=== PATIENT | male | born 1935 | race Caucasian/White ===

== ENCOUNTER 2022-05-17 21:01 | Observation (INO) | payer MEDICARE, SELFPAY ==
--- NOTE | ~2022-05-17 | XR_ITS ---
EXAMINATION: XR chest 1V portable DATE: 05/18/2022 04:38 INDICATION: Altered mental status. Head injury. TECHNIQUE: A single frontal view of the chest was obtained. COMPARISON: Chest 2 views 03/24/2013, CT abdomen and pelvis 04/22/2016 FINDINGS: The lungs are hyperexpanded with lucencies, consistent with emphysema. Calcified pulmonary nodules and calcified hilar lymph nodes are consistent with old granulomatous disease. No pleural eff usion or pneumothorax. The heart size is normal. IMPRESSION: 1. Emphysema. Reviewed, dictated and finalized at location A. GER WOUND IMPRESSION: 1. Emphysema.
--- NOTE | ~2022-05-17 | CT_ITS ---
EXAMINATION: CT brain wo con INDICATION: Head injury COMPARISON: None TECHNIQUE: Standard unenhanced head CT. The dose-length product (DLP) was 832.33 mGy-cm. The mA was a djusted according to patient size. Iterative reconstruction technique was employed. FINDINGS: There is no acute intraparenchymal hemorrhage. No evidence of mass lesion. No evidence of a cute infarction. There is moderate periventricular and subcortical hypodensity probably related to sm all vessel ischemic disease. There is moderate prominence of the sulci and ventricles related to cere bral atrophy. Intracranial calcified cerebral atherosclerosis is noted. There are no extra-axial jazmin ections. There is a small right frontal scalp hematoma. There is no mass effect or midline shift. Katharina nges in the globes are likely from ocular lens surgery. There is mild mucosal thickening of the paran carla sinuses. IMPRESSION: 1. No acute intracranial abnormality. 2. Age related findings. Reviewed, dictated and finalized at location A. IATRIC PHYSIOTHERAPIST
--- NOTE | ~2022-05-17 | US_ITS ---
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 COMPARISON: CT dated 04/22/2016 FINDINGS: The right kidney measures 8.1 x 4.9 x 4.8 cm. The left kidney measures 8.5 x 3.6 x 3.8 cm. The kidney s demonstrate normal echogenicity. 3 mm echogenic and shadowing nonobstructing stone at the lower lilia e of the left kidney. There is no hydronephrosis in either kidney. The bladder is normal. IMPRESSION: 1. 3 mm nonobstructing left renal stone. Otherwise normal kidneys with no hydronephrosis. Reviewed, dictated and finalized at location A. GE GROWER IMPRESSION: 1. 3 mm nonobstructing left renal stone. Otherwise normal kidneys with no hydr onephrosis.
[2022-05-18] VITALS (24 sets, daily range): BP systolic 116–162; BP diastolic 61–86; PULSE 62–100; RESP 12–30; TEMP 36.4–36.9; O2SAT 97–100
--- NOTE | 2022-05-18 04:12 | ED.GENADULT ---
HPI - General Adult General Chief complaint: Unspecified Stated complaint: aggression Time Seen by Provider: 05/18/22 03:41 Source: patient and family Mode of arrival: ambulatory Limitations: dementia History of Present Illness HPI narrative: Patient is an 86-year-old male with a history of nephrolithiasis, inguinal hernia repair, presenting to the emergency department for evaluation of agitation. Patient has memory problems and impairment per daughter that have been longstanding. Daughter provides most of the history here as patient is only alert and oriented to person, not to place or time. Patient's daughter states that he and his have been living independently, poor living conditions, and he has had declining memory over the past few months with increased agitation over the past 2 days. Patient has not seen a physician in many years. At the time of my assessment, patient is agitated, shouting at staff in the hallway. He is not easily directable. He states that he is going to blow me in the brains with a bullet. Patient's daughter states that he has never been formally diagnosed with Alzheimer's dementia or any type of specific dementia because he has not seen a physician. Is a previous smoker. She does not think he has been using alcohol or any drugs. The patient is actually in the ER tonight because his had a ground-level fall and was on the ground at home for a prolonged period of time so the daughter wanted the patient's evaluated tonight as well. Related Data Allergies Allergy/AdvReac Type Severity Reaction Status Date / Time No Known Allergies Allergy Verified 05/17/22 21:01 Review of Systems Review of Systems: ROS unobtainable: Yes unobtainable due to medical condition and unobtainable due to mental status PMFSH Past Medical History Medical History (Updated 05/18/22 @ 06:08 by Ana Breen MD) Nephrolithiasis Surgical History Surgical History (Updated 05/18/22 @ 04:16 by Ana Breen MD) H/O inguinal hernia repair Social History Social History (Updated 05/18/22 @ 04:16 by Ana Breen MD) Smoking status: Former smoker Alcohol intake: unknown Substance use: unknown Living arrangements: with family Gender identity (if verbalized by the patient): Male Exam Narrative: GENERAL: Awake, alert, agitated, standing chatting in the hallway HEAD: Normocephalic, atraumatic. EYES: PERRLA and EOMI. ENT: Nares clear, no rhinorrhea or epistaxis. Mucous membranes moist. NECK: Supple. CHEST: No respiratory distress, breathing even and non labored HEART: Regular rate, sinus rhythm ABDOMEN:Non distended, non tender EXTREMITIES: Normal range of motion. No edema. SKIN: Warm, dry, no rash. NEURO:No focal deficits. Alert and oriented x1, ambulatory with narrow based, steady gait Course Vital Signs Vital signs: Vital Signs Temperature 36.4 C L 05/18/22 04:36 Pulse Rate 87 05/18/22 04:36 Respiratory Rate 16 05/18/22 04:36 Blood Pressure 142/85 H 05/18/22 04:36 Pulse Oximetry 98 05/18/22 04:36 Temperature 36.4 C L 05/18/22 04:36 Pulse Rate 80 05/18/22 04:57 Respiratory Rate 16 05/18/22 04:36 Blood Pressure 142/85 H 05/18/22 04:36 Pulse Oximetry 98 05/18/22 04:36 Medical Decision Making MDM Narrative Medical decision making narrative: Patient presenting with daughter for increased agitation at home. Patient has not seen a primary care physician in many years. Patient required IV sedation in order to be compliant with care here tonight. He is only oriented to person, not to place or time, thus to not have the capacity to refuse medical care. Patient's daughter is POA at this point. IV access obtained and labs are drawn. Laboratory results are notable for mild elevation in creatinine but may be chronic in nature. No electrolyte derangement. Mild anemia. Urinalysis is consistent with urinary tract infection for which IV antibio
[2022-05-18] MEDS: diphenhydrAMINE HCl INJ 50 MG/ML VIAL IM (04:30)
[2022-05-18] MEDS: HALOPERIDOL LACTATE 5 MG/ML VIAL IM (04:30)
[2022-05-18] MEDS: LORazepam INJ (*CRX) 2 MG/ML VIAL IM (04:30)
[2022-05-18 05:08] LABS: Basophils Percent Auto 0.1 % (0.2-1.2); Eosinophils Absolute Auto 0.1 K/mm3 (0-0.3); Eosinophils Percent Auto 1.8 % (0-4.4); Hematocrit 37.6 % (42.0-52.0); Hemoglobin 12.4 g/dL (14.0-18.0); Immature Granulocyte Absolute 0.04 K/mm3 (0.00-0.031); Immature Granulocyte Percent A 0.6 % (0-0.5); Lymphocytes Absolute Auto 1.53 K/mm3 (0.9-3.2); Lymphocytes Percent Auto 21.2 % (18.3-44.2); Mean Platelet Volume 9.6 fl (7.4-10.4); Monocytes Absolute Auto 0.6 K/mm3 (0.1-0.6); Monocytes Percent Auto 7.6 % (2.6-8.5); Neutrophils Percent Auto 68.7 % (45.5-73.1); Platelet Count Result 152 k/mm3 (150-375); Red Blood Count 3.65 M/mm3 (4.6-6.20); Red Cell Distribution Width 13.1 % (11.5-14.5); White Blood Count 7.2 K/mm3 (4.5-10.0)
[2022-05-18 05:14] LABS: Acetaminophen < 10 ug/mL (10-30); Ethanol < 10 mg/dL (<10); Salicylate < 1.0 mg/dL (2-20)
[2022-05-18 05:15] LABS: Alanine Aminotransferase 12 U/L (6-50); Albumin Level 3.7 g/dL (3.5-5.1); Alkaline Phosphatase 97 U/L (38-126); Anion Gap 6 mmol/L (8-16); Aspartate Amino Transferase 26 U/L (17-59); Bilirubin,Total 1.2 mg/dL (0.2-1.3); Blood Urea Nitrogen 18 mg/dL (9-20); Calcium 8.4 mg/dL (8.4-10.2); Carbon Dioxide 26 mmol/L (22-30); Chloride 107 mmol/L (98-107); Estimated Glomerular Filt Rate 48; Glucose 104 mg/dL (65-110); Potassium 4.2 mmol/L (3.4-5.0); Sodium 139 mmol/L (137-145)
[2022-05-18 05:25] LABS: Add Urine Microscopic? YES; Appearance Urine Clear (Clear); Bilirubin Urine Negative (Negative); Blood Urine 3+ (Negative); Color Urine Light Yellow (Yellow); Glucose Urine UA Negative (Negative); Ketones Urine Trace mg/dL (Negative); Leukocyte Esterase Ur 2+ LEU/UL (Negative); Nitrate Urine Positive (Negative); Protein Urine Trace mg/dL (Negative); pH Urine 6.5 (5.0-9.0)
[2022-05-18 05:39] LABS: Influenza A QL RT-PCR Negative (Negative); Influenza B QL RT-PCR Negative (Negative); SARS-CoV-2 RNA PCR Negative
[2022-05-18 05:40] LABS: Amphetamine Screen Urine Negative (Negative); Barbiturate Screen Urine Negative (Negative); Benzodiazepines Screen Urine Negative (Negative); Cannabinoid Screen Urine Negative (Negative); Cocaine Screen Urine Negative (Negative); Methadone Screen Urine Negative (Negative); Opiate Screen Urine Negative (Negative); Phencyclidine Screen Urine Negative (Negative)
[2022-05-18 06:00] LABS: Bacteria Urine 2+ /hpf; Mucus Urine Rare /lpf; RBC Urine >75 /hpf (0-2); WBC Urine >75 /hpf
--- NOTE | 2022-05-18 07:23 | PC.NURSE ---
Report given to STEFFANY Culver at this time.
--- NOTE | 2022-05-18 07:27 | PC.NURSE ---
assumed care of pt. at this time. report from STEFFANY oneill
--- NOTE | 2022-05-18 08:30 | PC.NURSE ---
reg diet food tray ordered
[2022-05-18 09:36] LABS: Ethanol < 10 mg/dL (<10)
--- NOTE | 2022-05-18 10:19 | PM.IMHP ---
H&P: HPI History of Present Illness Date/Time: 05/18/22 17:19 Chief Complaint: Altered Mental Status Narrative: 86M with a past medical history of nephrolithiasis, inguinal hernia repair who presented to the emergency department after being picked up by EMS for agitation. History obtained by chart review and from speaking with the nurses. Patient lives at home with his and per report the housing situation is concerning. Per nursing, called daughter to help her after she fell. Daughter arrived in the home and found the (patient) standing over the mother yelling he was going to kill her. The police were called to de-escalate the situation and EMS was called. The and (Mr. Lozano) were brought in to the emergency department. In the emergency department, patient was agitated and had to be given haloperidol and lorazepam. UA with nitrites, blood, leukocyte esterase. UDS negative. CT head with no acute intracranial processes. Ceftriaxone given. Review of Systems Review of Systems: ROS unobtainable: Yes unobtainable due to mental status PMFSH Past Medical History Medical History Nephrolithiasis Surgical History Surgical History H/O inguinal hernia repair Social History Social History Smoking status: Former smoker Alcohol intake: never Substance use: never Living arrangements: with family Gender identity (if verbalized by the patient): Male Spiritual care concerns: No Meds Home Medications and Allergies Home Medications Medication Instructions Recorded Confirmed Type No Home Medications 05/18/22 05/18/22 History Allergies Allergy/AdvReac Type Severity Reaction Status Date / Time No Known Allergies Allergy Verified 05/18/22 16:48 Vital Signs Vital Signs - 24 hr 05/18/22 04:36 05/18/22 04:57 05/18/22 06:24 Temperature 36.4 C L Pulse Rate 87 80 72 Respiratory Rate 16 15 Blood Pressure 142/85 H Pulse Oximetry 98 100 05/18/22 06:30 05/18/22 06:45 05/18/22 07:00 Temperature Pulse Rate 69 70 72 Respiratory Rate 15 18 21 H Blood Pressure Pulse Oximetry 100 100 05/18/22 07:19 05/18/22 07:51 05/18/22 08:11 Temperature Pulse Rate 71 71 76 Respiratory Rate 17 20 30 H Blood Pressure Pulse Oximetry 05/18/22 08:15 05/18/22 08:30 05/18/22 08:45 Temperature Pulse Rate 78 72 80 Respiratory Rate 20 21 H 16 Blood Pressure Pulse Oximetry 05/18/22 09:02 05/18/22 09:15 05/18/22 09:36 Temperature Pulse Rate 80 70 Respiratory Rate 30 H 17 30 H Blood Pressure Pulse Oximetry 05/18/22 08:00 05/18/22 10:00 05/18/22 11:05 Temperature Pulse Rate 65 63 72 Respiratory Rate 12 14 14 Blood Pressure 162/86 H 129/68 149/80 H Pulse Oximetry 97 100 100 05/18/22 12:01 05/18/22 12:15 05/18/22 14:03 Temperature Pulse Rate 72 88 Respiratory Rate 17 19 Blood Pressure 124/63 116/71 Pulse Oximetry 100 100 05/18/22 16:04 Temperature 36.7 C Pulse Rate 100 Respiratory Rate 17 Blood Pressure 130/74 Pulse Oximetry 99 Exam Narrative: GENERAL: NAD, cooperative HEENT: Normocephalic, atraumatic, anicteric, nares clear, oropharynx moist and clear, pinpoint pupils NECK: Supple, no thyromegaly, no lymphadenopathy CV: Normal S1, S2, RRR, No MRG RESP: CTAB, Normal work of breathing. Abdomen: Soft, non-tender, non-distended, +BS EXTREMITIES: Warm and well perfused, no clubbing, cyanosis, or edema. +2 Distal pulses bilaterally. SKIN: warm, dry and intact. NEURO: Confused H&P: Results Labs Labs: Short CBC 05/18/22 Range/Units 04:51 WBC 7.2 (4.5-10.0) K/mm3 Hgb 12.4 L (14.0-18.0) g/dL Hct 37.6 L (42.0-52.0) % Plt Count 152 (150-375) k/mm3 [facility] 05/18/22 04:52 Sodium 139 Potassium 4.2 Chloride
[2022-05-18] MEDS: ENOXAPARIN 30 MG/0.3 ML SYRINGE SUB-Q (10:39)
--- NOTE | 2022-05-18 11:01 | PC.NURSE ---
pt. daughter Evelyn Beatrice [phone]
--- NOTE | 2022-05-18 11:30 | PC.NURSE ---
reg diet lunch tray ordered
[2022-05-18] MEDS: HALOPERIDOL LACTATE 5 MG/ML VIAL 2.5 MG IV PUSH (12:11)
[2022-05-18 12:33] LABS: Alveolar/Arterial O2 Gradient 19.3 mmHg; Base Excess ABG 0.5 mEq/l (+/-2.0); Fractional Inspired Oxygen 21 %; HCO3 ABG 23.5 mEq/l (22.0-26.0); Oxygen Content ABG 18.2 %vol (16.0-22.0); Oxygen Saturation ABG 97.5 % (95.0-100.0); Oxyhemoglobin 95.5 % THb (90.0-100.0); PCO2 ABG 32.9 mmHg (35.0-45.0); PO2 FiO2 Ratio Arterial Blood 4.33 %; Total Hemoglobin 13.5 g/dL (12.0-18.0); pH ABG 7.471 (7.350-7.450)
[2022-05-18 12:34] LABS: Device ROOM AIR; Modified Allen's Test Pass; Site Drawn RIGHT RADIAL
--- NOTE | 2022-05-18 16:20 | PC.NURSE ---
updated pt. daughter on pt. status
[2022-05-19 00:10] LABS: Creatinine Urine 73.2 mg/dL
[2022-05-19 00:11] LABS: Sodium Urine Random 223 meq/L
[2022-05-19 02:00] VITALS: BP 148/70; PULSE 78; RESP 16; TEMP 36.2; O2SAT 94
[2022-05-19 05:16] LABS: Basophils Percent Auto 0.3 % (0.2-1.2); Eosinophils Absolute Auto 0.2 K/mm3 (0-0.3); Eosinophils Percent Auto 3.5 % (0-4.4); Hematocrit 39.1 % (42.0-52.0); Hemoglobin 12.6 g/dL (14.0-18.0); Immature Granulocyte Absolute 0.03 K/mm3 (0.00-0.031); Immature Granulocyte Percent A 0.5 % (0-0.5); Mean Corpuscular HGB Conc 32.2 g/dl (32-36); Mean Corpuscular Hemoglobin 32.7 pg (26-34); Mean Corpuscular Volume 101.6 fl (80-100); Mean Platelet Volume 9.6 fl (7.4-10.4); Monocytes Absolute Auto 0.5 K/mm3 (0.1-0.6); Monocytes Percent Auto 8.1 % (2.6-8.5); Neutrophils Absolute Auto 4.6 K/mm3 (1.3-6.7); Neutrophils Percent Auto 69.6 % (45.5-73.1); Platelet Count Result 141 k/mm3 (150-375); Red Blood Count 3.85 M/mm3 (4.6-6.20); Red Cell Distribution Width 12.9 % (11.5-14.5); White Blood Count 6.7 K/mm3 (4.5-10.0)
[2022-05-19 05:17] LABS: Immature Reticulocyte Fraction 8.8 % (3.0-15.9); Reticulocyte Hemoglobin Conten 35.7 pg (28.2-35.7); Reticulocyte Percent 1.06 % (0.7-4.3); Reticulocytes Absolute 0.04 B/L (32.2-175.7)
[2022-05-19 05:28] VITALS: BP 130/59; PULSE 74; RESP 20; TEMP 36.7; O2SAT 99
[2022-05-19 05:29] LABS: Anion Gap 3 mmol/L (8-16); Blood Urea Nitrogen 18 mg/dL (9-20); Calcium 8.7 mg/dL (8.4-10.2); Carbon Dioxide 29 mmol/L (22-30); Chloride 105 mmol/L (98-107); Estimated CRCL calculation 27 ml/min; Estimated Glomerular Filt Rate 52; Glucose 79 mg/dL (65-110); Potassium 4.7 mmol/L (3.4-5.0); Sodium 137 mmol/L (137-145)
[2022-05-19 10:00] VITALS: BP 107/64; PULSE 68; RESP 16; TEMP 36.6; O2SAT 98
[2022-05-19] MEDS: ENOXAPARIN 30 MG/0.3 ML SYRINGE SUB-Q (10:40)
[2022-05-19 14:00] VITALS: BP 118/65; PULSE 66; RESP 16; TEMP 36.4; O2SAT 99
--- NOTE | 2022-05-19 17:57 | PM.IMPN ---
Progress Note: A&P Assessment and Plan (1) Altered mental status: Code(s): R41.82 - Altered mental status, unspecified Status: Acute Assessment and Plan: CT head with no acute intracranial pathology UDS negative. TSH normal. CXR with no pneumonia. No leukocytosis. UA with nitrites, leukocyte esterase and blood. Culture pending Ceftriaxone initiated 05/18 05/19 w/o aggressive behavior; underlying dementia suspected; low b12 may be contributing but is likely not primary issue (2) Acute UTI: Code(s): N39.0 - Urinary tract infection, site not specified Status: Acute Assessment and Plan: C/s pending Ceftriaxone initiated 05/18 (3) Anemia: Code(s): D64.9 - Anemia, unspecified Status: Acute Assessment and Plan: With macrocytosis and thrombocytopenia, c/w B12 deficiency (4) Vitamin B12 deficiency: Code(s): E53.8 - Deficiency of other specified B group vitamins Status: Acute Assessment and Plan: Nutritional deficiency vs malabsorption 05/19 Begin IM and PO replacement (5) Elevated serum creatinine: Code(s): R79.89 - Other specified abnormal findings of blood chemistry Status: Acute Assessment and Plan: Possibly due to acute infection 05/18 1.4, 05/19 1.3 Subjective Date/time seen: 05/19/22 17:57 Interval history: admitted 05/18 with agitation and presumed UTI. Eating well. Cooperative with staff today. Denied pain. Denied shortness of breath. Denied bleeding. (However the veracity of his answers is dubious.) Review of Systems Review of Systems: ROS unobtainable: Yes unobtainable due to medical condition Exam Narrative: Awake and alert but somewhat unkempt elderly gentleman who is in no acute distress while sitting in his hospital bed enjoying a meal. He is oriented to person only. He does not know the town the hospital the month or the year. Neck without JVD. Chest clear to auscultation with normal effort. Heart normal S1 and S2 with regular rate and no audible murmur. Extremities without edema. Abdomen bowel sounds positive soft nontender no palpable mass. Musculoskeletal without gross deformity to visual inspection. Neurologic cranial nerves grossly symmetric to visual inspection. Objective Data Vital Signs Vital Signs: Vital Signs - 24 hr 05/18/22 21:21 05/19/22 02:00 05/19/22 05:28 Temperature 98.5 F 97.1 F L 98.0 F Pulse Rate 62 78 74 Respiratory Rate 21 H 16 20 Blood Pressure 128/61 148/70 H 130/59 L Pulse Oximetry 100 94 99 Oxygen Delivery 05/19/22 10:00 05/19/22 08:00 05/19/22 14:00 Temperature 97.8 F 97.5 F L Pulse Rate 68 66 Respiratory Rate 16 16 Blood Pressure 107/64 118/65 Pulse Oximetry 98 99 Oxygen Delivery Room Air Intake/Output Intake/Output: Intake & Output 05/16/22 05/17/22 05/18/22 05/19/22 23:59 23:59 23:59 23:59 Intake Total 50 630 Output Total 150 600 Balance -100 30 Meds/Results Medications: Active Medications Generic Name Dose Route Start Last Admin Trade Name Freq PRN Reason Stop Dose Admin Acetaminophen 650 mg 05/18/22 08:45 Acetaminophen 325 Mg Tablet PO Q6H PRN Mild Pain (1-3) or Fever Bisacodyl 10 mg 05/18/22 08:45 Bisacodyl 10 Mg Suppository RECTAL ONCE PRN Constipation Enoxaparin Sodium 30 mg 05/18/22 09:00 05/19/22 10:40 Enoxaparin 30 Mg/0.3 Ml Syringe SUB-Q 30 mg DAILY CHELSEA Administration Ceftriaxone Sodium/Dextrose 1 gm in 50 mls @ 100 mls/hr 05/19/22 06:00 05/19/22 06:30 Rocephin 1 Gm/D5w 50 Ml IVPB Infused Q24H CHELSEA Infusion Ondansetron HCl 4 mg 05/18/22 08:45 Ondansetron Inj 4 Mg/2 Ml Vial IV PUSH Q6H PRN Nausea And Vomiting Radiology Results: ITS Impressions Chest X-Ray 05/18/22 06:29 IMPRESSION: 1. Emphysema. Head CT 05/18/22 08:23 IMPRESSION: 1. No acute intracranial abnormality. 2. Age related fi
[2022-05-19 18:00] VITALS: BP 122/64; PULSE 88; RESP 18; TEMP 36.4; O2SAT 97
[2022-05-19] MEDS: CYANOCOBALAMIN INJ 1,000 MCG/ML VIAL 1000 MCG IM (18:55)
[2022-05-19 21:49] VITALS: BP 131/78; PULSE 85; RESP 20; TEMP 36.8; O2SAT 99
[2022-05-20 02:00] VITALS: BP 125/68; PULSE 74; RESP 21; TEMP 36.4; O2SAT 100
[2022-05-20 06:00] VITALS: BP 124/63; PULSE 72; RESP 20; TEMP 36.7; O2SAT 98
[2022-05-20 06:02] LABS: Basophils Percent Auto 0.3 % (0.2-1.2); Eosinophils Absolute Auto 0.2 K/mm3 (0-0.3); Eosinophils Percent Auto 2.6 % (0-4.4); Hematocrit 42.9 % (42.0-52.0); Hemoglobin 13.1 g/dL (14.0-18.0); Immature Granulocyte Absolute 0.02 K/mm3 (0.00-0.031); Immature Granulocyte Percent A 0.3 % (0-0.5); Lymphocytes Absolute Auto 2.14 K/mm3 (0.9-3.2); Lymphocytes Percent Auto 26.9 % (18.3-44.2); Mean Corpuscular HGB Conc 30.5 g/dl (32-36); Mean Corpuscular Hemoglobin 33.9 pg (26-34); Mean Corpuscular Volume 111.1 fl (80-100); Mean Platelet Volume 9.7 fl (7.4-10.4); Monocytes Absolute Auto 0.7 K/mm3 (0.1-0.6); Monocytes Percent Auto 9.3 % (2.6-8.5); Neutrophils Absolute Auto 4.8 K/mm3 (1.3-6.7); Neutrophils Percent Auto 60.6 % (45.5-73.1); Platelet Count Result 153 k/mm3 (150-375); Red Blood Count 3.86 M/mm3 (4.6-6.20); Red Cell Distribution Width 13.2 % (11.5-14.5)
[2022-05-20 07:49] LABS: Platelet Estimate Adequate (Adequate); Schistocytes None Seen (NORMAL)
[2022-05-20] MEDS: CYANOCOBALAMIN 1,000 MCG TABLET 1000 MCG PO (08:52)
[2022-05-20] MEDS: ENOXAPARIN 30 MG/0.3 ML SYRINGE SUB-Q (08:52)
[2022-05-20 10:00] VITALS: BP 115/64; PULSE 80; RESP 18; TEMP 36.3; O2SAT 99
[2022-05-20 11:08] LABS: Anion Gap 7 mmol/L (8-16); Blood Urea Nitrogen 26 mg/dL (9-20); Calcium 8.6 mg/dL (8.4-10.2); Carbon Dioxide 27 mmol/L (22-30); Chloride 103 mmol/L (98-107); Estimated CRCL calculation 23 ml/min; Estimated Glomerular Filt Rate 44; Glucose 130 mg/dL (65-110); Sodium 137 mmol/L (137-145)
--- NOTE | 2022-05-20 12:32 | PM.IMPN ---
Progress Note: A&P Assessment and Plan (1) Altered mental status: Code(s): R41.82 - Altered mental status, unspecified Status: Acute Assessment and Plan: CT head with no acute intracranial pathology UDS negative. TSH normal. CXR with no pneumonia. No leukocytosis. UA with nitrites, leukocyte esterase and blood. Culture pending Ceftriaxone initiated 05/18 05/19 w/o aggressive behavior; underlying dementia suspected; low b12 may be contributing but is likely not primary issue (2) Acute UTI: Code(s): N39.0 - Urinary tract infection, site not specified Status: Acute Assessment and Plan: C/s pending Ceftriaxone initiated 05/18 (3) Anemia: Code(s): D64.9 - Anemia, unspecified Status: Acute Assessment and Plan: With macrocytosis and thrombocytopenia, c/w B12 deficiency (4) Vitamin B12 deficiency: Code(s): E53.8 - Deficiency of other specified B group vitamins Status: Acute Assessment and Plan: Nutritional deficiency vs malabsorption 05/19 Begin IM and PO replacement (5) Elevated serum creatinine: Code(s): R79.89 - Other specified abnormal findings of blood chemistry Status: Acute Assessment and Plan: Possibly due to acute infection 05/18 1.4, 05/19 1.3 Subjective Date/time seen: 05/20/22 12:32 no new complaints Exam Narrative: Awake and alert but somewhat unkempt elderly gentleman who is in no acute distress while sitting in his hospital bed enjoying a meal. He is oriented to person only. He does not know the town the hospital the month or the year. Neck without JVD. Chest clear to auscultation with normal effort. Heart normal S1 and S2 with regular rate and no audible murmur. Extremities without edema. Abdomen bowel sounds positive soft nontender no palpable mass. Musculoskeletal without gross deformity to visual inspection. Neurologic cranial nerves grossly symmetric to visual inspection. Objective Data Vital Signs Vital Signs: Vital Signs - 24 hr 05/19/22 14:00 05/19/22 18:00 05/19/22 21:49 Temperature 97.5 F L 97.5 F L 98.3 F Pulse Rate 66 88 85 Respiratory Rate 16 18 20 Blood Pressure 118/65 122/64 131/78 Pulse Oximetry 99 97 99 Oxygen Delivery 05/19/22 20:00 05/20/22 02:00 05/20/22 06:00 Temperature 97.5 F L 98.0 F Pulse Rate 74 72 Respiratory Rate 21 H 20 Blood Pressure 125/68 124/63 Pulse Oximetry 100 98 Oxygen Delivery Room Air 05/20/22 10:00 Temperature 97.3 F L Pulse Rate 80 Respiratory Rate 18 Blood Pressure 115/64 Pulse Oximetry 99 Oxygen Delivery Intake/Output Intake/Output: Intake & Output 05/17/22 05/18/22 05/19/22 05/20/22 23:59 23:59 23:59 23:59 Intake Total 50 870 600 Output Total 150 600 600 Balance -100 270 0 Meds/Results Medications: Active Medications Generic Name Dose Route Start Last Admin Trade Name Freq PRN Reason Stop Dose Admin Acetaminophen 650 mg 05/18/22 08:45 Acetaminophen 325 Mg Tablet PO Q6H PRN Mild Pain (1-3) or Fever Bisacodyl 10 mg 05/18/22 08:45 Bisacodyl 10 Mg Suppository RECTAL ONCE PRN Constipation Cyanocobalamin 1,000 mcg 05/20/22 09:00 05/20/22 08:52 Cyanocobalamin 1,000 Mcg Tablet PO 1,000 mcg QAM CHELSEA Administration Enoxaparin Sodium 30 mg 05/18/22 09:00 05/20/22 08:52 Enoxaparin 30 Mg/0.3 Ml Syringe SUB-Q 30 mg DAILY CHELSEA Administration Ceftriaxone Sodium/Dextrose 1 gm in 50 mls @ 100 mls/hr 05/19/22 06:00 05/20/22 06:07 Rocephin 1 Gm/D5w 50 Ml IVPB 100 mls/hr Q24H CHELSEA Administration Ondansetron HCl 4 mg 05/18/22 08:45 Ondansetron Inj 4 Mg/2 Ml Vial IV PUSH Q6H PRN Nausea And Vomiting Radiology Results: ITS Impressions Chest X-Ray 05/18/22 06:29 IMPRESSION: 1. Emphysema. Head CT 05/18/22 08:23 IMPRESSION: 1. No acute intracranial abnormality. 2. Age related findings. Renal U
[2022-05-20 14:00] VITALS: BP 139/72; PULSE 65; RESP 18; TEMP 36.5; O2SAT 99
[2022-05-20 17:12] LABS: Iron 95 ug/dL (49-181)
[2022-05-20 17:21] LABS: Percent Iron Saturation 44 % (20-50)
[2022-05-20 18:00] VITALS: BP 149/74; PULSE 74; RESP 18; TEMP 36.2; O2SAT 100
[2022-05-20 22:00] VITALS: BP 115/84; PULSE 75; RESP 21; TEMP 36.5; O2SAT 100
[2022-05-21 02:00] VITALS: BP 146/84; PULSE 72; RESP 21; TEMP 36.3; O2SAT 100
[2022-05-21 05:28] LABS: Basophils Percent Auto 0.2 % (0.2-1.2); Eosinophils Absolute Auto 0.2 K/mm3 (0-0.3); Eosinophils Percent Auto 2.7 % (0-4.4); Hematocrit 41.6 % (42.0-52.0); Hemoglobin 13.2 g/dL (14.0-18.0); Immature Granulocyte Absolute 0.03 K/mm3 (0.00-0.031); Immature Granulocyte Percent A 0.5 % (0-0.5); Lymphocytes Absolute Auto 1.33 K/mm3 (0.9-3.2); Lymphocytes Percent Auto 20.1 % (18.3-44.2); Mean Corpuscular HGB Conc 31.7 g/dl (32-36); Mean Platelet Volume 9.9 fl (7.4-10.4); Monocytes Absolute Auto 0.6 K/mm3 (0.1-0.6); Monocytes Percent Auto 8.7 % (2.6-8.5); Neutrophils Absolute Auto 4.5 K/mm3 (1.3-6.7); Neutrophils Percent Auto 67.8 % (45.5-73.1); Platelet Count Result 150 k/mm3 (150-375); White Blood Count 6.6 K/mm3 (4.5-10.0)
[2022-05-21 05:38] LABS: Anion Gap 6 mmol/L (8-16); Blood Urea Nitrogen 24 mg/dL (9-20); Calcium 8.7 mg/dL (8.4-10.2); Carbon Dioxide 28 mmol/L (22-30); Chloride 103 mmol/L (98-107); Estimated CRCL calculation 27 ml/min; Estimated Glomerular Filt Rate 52; Glucose 89 mg/dL (65-110); Potassium 4.2 mmol/L (3.4-5.0); Sodium 137 mmol/L (137-145)
[2022-05-21 06:00] VITALS: BP 148/70; PULSE 77; RESP 21; TEMP 36.1; O2SAT 100
[2022-05-21] MEDS: ENOXAPARIN 30 MG/0.3 ML SYRINGE SUB-Q (08:29)
[2022-05-21] MEDS: CYANOCOBALAMIN 1,000 MCG TABLET 1000 MCG PO (08:29)
[2022-05-21] MEDS: SULFAMETHOXAZOLE/TRIMETHOPRIM 400/80 MG TABLET 1 TAB PO ×2 (08:29→20:07)
[2022-05-21 10:53] VITALS: BP 127/68; PULSE 77; TEMP 36.3; O2SAT 99
--- NOTE | 2022-05-21 10:54 | PM.IMPN ---
Progress Note: A&P Assessment and Plan (1) Altered mental status: Code(s): R41.82 - Altered mental status, unspecified Status: Acute Assessment and Plan: CT head with no acute intracranial pathology UDS negative. TSH normal. CXR with no pneumonia. No leukocytosis. UA with nitrites, leukocyte esterase and blood. Culture pending Ceftriaxone initiated 05/18 05/19 w/o aggressive behavior; underlying dementia suspected; low b12 may be contributing but is likely not primary issue (2) Acute UTI: Code(s): N39.0 - Urinary tract infection, site not specified Status: Acute Assessment and Plan: C/s pending Ceftriaxone initiated 05/18 (3) Anemia: Code(s): D64.9 - Anemia, unspecified Status: Acute Assessment and Plan: With macrocytosis and thrombocytopenia, c/w B12 deficiency (4) Vitamin B12 deficiency: Code(s): E53.8 - Deficiency of other specified B group vitamins Status: Acute Assessment and Plan: Nutritional deficiency vs malabsorption 05/19 Begin IM and PO replacement (5) Elevated serum creatinine: Code(s): R79.89 - Other specified abnormal findings of blood chemistry Status: Acute Assessment and Plan: Possibly due to acute infection 05/18 1.4, 05/19 1.3 Subjective Date/time seen: 05/21/22 10:54 no new complaints Exam Narrative: Awake and alert but somewhat unkempt elderly gentleman who is in no acute distress while sitting in his hospital bed enjoying a meal. He is oriented to person only. He does not know the town the hospital the month or the year. Neck without JVD. Chest clear to auscultation with normal effort. Heart normal S1 and S2 with regular rate and no audible murmur. Extremities without edema. Abdomen bowel sounds positive soft nontender no palpable mass. Musculoskeletal without gross deformity to visual inspection. Neurologic cranial nerves grossly symmetric to visual inspection. Objective Data Vital Signs Vital Signs: Vital Signs - 24 hr 05/20/22 14:00 05/20/22 18:00 05/20/22 22:00 Temperature 97.7 F 97.2 F L 97.7 F Pulse Rate 65 74 75 Respiratory Rate 18 18 21 H Blood Pressure 139/72 149/74 H 115/84 Pulse Oximetry 99 100 100 Oxygen Delivery 05/21/22 02:00 05/21/22 06:00 05/21/22 08:00 Temperature 97.4 F L 97.0 F L Pulse Rate 72 77 Respiratory Rate 21 H 21 H Blood Pressure 146/84 H 148/70 H Pulse Oximetry 100 100 Oxygen Delivery Room Air Intake/Output Intake/Output: Intake & Output 05/18/22 05/19/22 05/20/22 05/21/22 23:59 23:59 23:59 23:59 Intake Total 50 870 990 50 Output Total 150 600 600 Balance -100 270 390 50 Meds/Results Medications: Active Medications Generic Name Dose Route Start Last Admin Trade Name Freq PRN Reason Stop Dose Admin Acetaminophen 650 mg 05/18/22 08:45 Acetaminophen 325 Mg Tablet PO Q6H PRN Mild Pain (1-3) or Fever Bisacodyl 10 mg 05/18/22 08:45 Bisacodyl 10 Mg Suppository RECTAL ONCE PRN Constipation Cyanocobalamin 1,000 mcg 05/20/22 09:00 05/21/22 08:29 Cyanocobalamin 1,000 Mcg Tablet PO 1,000 mcg QAM CHELSEA Administration Enoxaparin Sodium 30 mg 05/18/22 09:00 05/21/22 08:29 Enoxaparin 30 Mg/0.3 Ml Syringe SUB-Q 30 mg DAILY CHELSEA Administration Ondansetron HCl 4 mg 05/18/22 08:45 Ondansetron Inj 4 Mg/2 Ml Vial IV PUSH Q6H PRN Nausea And Vomiting Trimethoprim/Sulfamethoxazole 1 tab 05/21/22 09:00 05/21/22 08:29 Sulfamethoxazole/Trimethoprim 400/80 Mg Tablet PO 1 tab Q12HR CHELSEA Administration Radiology Results: ITS Impressions Chest X-Ray 05/18/22 06:29 IMPRESSION: 1. Emphysema. Head CT 05/18/22 08:23 IMPRESSION: 1. No acute intracranial abnormality. 2. Age related findings. Renal Ultrasound 05/19/22 16:29 IMPRESSION: 1. 3 mm nonobstructing left renal stone. Otherwise normal kidneys with no hydrone
[2022-05-21 12:03] VITALS: BMI 16.9
[2022-05-21 22:08] VITALS: BP 105/74; PULSE 82; RESP 21; TEMP 36.3; O2SAT 100
[2022-05-22 01:46] VITALS: BP 114/68; PULSE 73; RESP 21; TEMP 36.6; O2SAT 100
[2022-05-22 05:30] LABS: Eosinophils Absolute Auto 0.2 K/mm3 (0-0.3); Eosinophils Percent Auto 3.5 % (0-4.4); Hemoglobin 12.2 g/dL (14.0-18.0); Immature Granulocyte Absolute 0.02 K/mm3 (0.00-0.031); Immature Granulocyte Percent A 0.3 % (0-0.5); Lymphocytes Percent Auto 19.3 % (18.3-44.2); Mean Corpuscular HGB Conc 32.1 g/dl (32-36); Mean Corpuscular Hemoglobin 33.2 pg (26-34); Mean Corpuscular Volume 103.5 fl (80-100); Mean Platelet Volume 9.8 fl (7.4-10.4); Monocytes Absolute Auto 0.6 K/mm3 (0.1-0.6); Monocytes Percent Auto 10.1 % (2.6-8.5); Neutrophils Absolute Auto 4.2 K/mm3 (1.3-6.7); Neutrophils Percent Auto 66.8 % (45.5-73.1); Platelet Count Result 144 k/mm3 (150-375); Red Blood Count 3.67 M/mm3 (4.6-6.20); Red Cell Distribution Width 13.2 % (11.5-14.5); White Blood Count 6.2 K/mm3 (4.5-10.0)
[2022-05-22 05:35] LABS: Anion Gap 6 mmol/L (8-16); Blood Urea Nitrogen 33 mg/dL (9-20); Calcium 8.6 mg/dL (8.4-10.2); Carbon Dioxide 29 mmol/L (22-30); Chloride 102 mmol/L (98-107); Estimated CRCL calculation 19 ml/min; Estimated Glomerular Filt Rate 36; Glucose 103 mg/dL (65-110); Potassium 4.1 mmol/L (3.4-5.0); Sodium 137 mmol/L (137-145)
[2022-05-22 06:09] VITALS: BP 140/62; PULSE 77; RESP 20; TEMP 36.3; O2SAT 99
[2022-05-22] MEDS: CYANOCOBALAMIN 1,000 MCG TABLET 1000 MCG PO (07:56)
[2022-05-22] MEDS: ENOXAPARIN 30 MG/0.3 ML SYRINGE SUB-Q (07:56)
[2022-05-22] MEDS: SULFAMETHOXAZOLE/TRIMETHOPRIM 400/80 MG TABLET 1 TAB PO ×2 (07:56→21:18)
[2022-05-22 10:20] VITALS: BP 106/64; PULSE 67; RESP 14; TEMP 36.6; O2SAT 100
--- NOTE | 2022-05-22 12:07 | PM.IMPN ---
Progress Note: A&P Assessment and Plan (1) Altered mental status: Code(s): R41.82 - Altered mental status, unspecified Status: Acute Assessment and Plan: CT head with no acute intracranial pathology UDS negative. TSH normal. CXR with no pneumonia. No leukocytosis. UA with nitrites, leukocyte esterase and blood. Culture pending Ceftriaxone initiated 05/18 05/19 w/o aggressive behavior; underlying dementia suspected; aggressive behavior has improved. This has been a issue with his discharge. (2) Acute UTI: Code(s): N39.0 - Urinary tract infection, site not specified Status: Acute Assessment and Plan: Continue Bactrim (3) Anemia: Code(s): D64.9 - Anemia, unspecified Status: Acute Assessment and Plan: With macrocytosis and thrombocytopenia, c/w B12 deficiency (4) Vitamin B12 deficiency: Code(s): E53.8 - Deficiency of other specified B group vitamins Status: Acute Assessment and Plan: Nutritional deficiency vs malabsorption 05/19 Begin IM and PO replacement (5) Elevated serum creatinine: Code(s): R79.89 - Other specified abnormal findings of blood chemistry Status: Acute Assessment and Plan: Possibly due to acute infection 05/18 1.4, 05/19 1.3 Subjective Date/time seen: 05/22/22 12:07 no new complaints Exam Narrative: Awake and alert but somewhat unkempt elderly gentleman who is in no acute distress while sitting in his hospital bed enjoying a meal. He is oriented to person only. He does not know the town the hospital the month or the year. Neck without JVD. Chest clear to auscultation with normal effort. Heart normal S1 and S2 with regular rate and no audible murmur. Extremities without edema. Abdomen bowel sounds positive soft nontender no palpable mass. Musculoskeletal without gross deformity to visual inspection. Neurologic cranial nerves grossly symmetric to visual inspection. Objective Data Vital Signs Vital Signs: Vital Signs - 24 hr 05/21/22 20:00 05/21/22 22:08 05/22/22 01:46 Temperature 97.3 F L 97.8 F Pulse Rate 82 73 Respiratory Rate 21 H 21 H Blood Pressure 105/74 114/68 Pulse Oximetry 100 100 Oxygen Delivery Room Air 05/22/22 06:09 05/22/22 10:20 Temperature 97.4 F L 97.9 F Pulse Rate 77 67 Respiratory Rate 20 14 Blood Pressure 140/62 106/64 Pulse Oximetry 99 100 Oxygen Delivery Intake/Output Intake/Output: Intake & Output 05/19/22 05/20/22 05/21/22 05/22/22 23:59 23:59 23:59 23:59 Intake Total 870 990 170 520 Output Total 600 600 Balance 270 390 170 520 Meds/Results Medications: Active Medications Generic Name Dose Route Start Last Admin Trade Name Carla PRN Reason Stop Dose Admin Acetaminophen 650 mg 05/18/22 08:45 Acetaminophen 325 Mg Tablet PO Q6H PRN Mild Pain (1-3) or Fever Bisacodyl 10 mg 05/18/22 08:45 Bisacodyl 10 Mg Suppository RECTAL ONCE PRN Constipation Cyanocobalamin 1,000 mcg 05/20/22 09:00 05/22/22 07:56 Cyanocobalamin 1,000 Mcg Tablet PO 1,000 mcg QAM CHELSEA Administration Enoxaparin Sodium 30 mg 05/18/22 09:00 05/22/22 07:56 Enoxaparin 30 Mg/0.3 Ml Syringe SUB-Q 30 mg DAILY CHELSEA Administration Ondansetron HCl 4 mg 05/18/22 08:45 Ondansetron Inj 4 Mg/2 Ml Vial IV PUSH Q6H PRN Nausea And Vomiting Trimethoprim/Sulfamethoxazole 1 tab 05/21/22 09:00 05/22/22 07:56 Sulfamethoxazole/Trimethoprim 400/80 Mg Tablet PO 1 tab Q12HR CHELSEA Administration Radiology Results: ITS Impressions Chest X-Ray 05/18/22 06:29 IMPRESSION: 1. Emphysema. Head CT 05/18/22 08:23 IMPRESSION: 1. No acute intracranial abnormality. 2. Age related findings. Renal Ultrasound 05/19/22 16:29 IMPRESSION: 1. 3 mm nonobstructing left renal stone. Otherwise normal kidneys with no hydronephrosis. Labs Labs: Laboratory Results -
[2022-05-22 14:30] VITALS: BP 121/73; PULSE 82; RESP 14; TEMP 36.4; O2SAT 99
[2022-05-22 21:38] VITALS: BP 111/54; PULSE 76; RESP 17; TEMP 36.9; O2SAT 100
[2022-05-23 05:29] VITALS: BP 118/67; PULSE 75; RESP 17; TEMP 36.7; O2SAT 99
[2022-05-23 06:07] LABS: Basophils Percent Auto 0.3 % (0.2-1.2); Eosinophils Absolute Auto 0.3 K/mm3 (0-0.3); Eosinophils Percent Auto 4.9 % (0-4.4); Hematocrit 37.7 % (42.0-52.0); Hemoglobin 12.1 g/dL (14.0-18.0); Immature Granulocyte Absolute 0.02 K/mm3 (0.00-0.031); Immature Granulocyte Percent A 0.3 % (0-0.5); Lymphocytes Absolute Auto 1.26 K/mm3 (0.9-3.2); Lymphocytes Percent Auto 21.1 % (18.3-44.2); Mean Corpuscular HGB Conc 32.1 g/dl (32-36); Mean Corpuscular Hemoglobin 33.2 pg (26-34); Mean Corpuscular Volume 103.6 fl (80-100); Mean Platelet Volume 9.7 fl (7.4-10.4); Monocytes Absolute Auto 0.6 K/mm3 (0.1-0.6); Monocytes Percent Auto 10.4 % (2.6-8.5); Neutrophils Absolute Auto 3.8 K/mm3 (1.3-6.7); Platelet Count Result 150 k/mm3 (150-375); Red Blood Count 3.64 M/mm3 (4.6-6.20); Red Cell Distribution Width 13.2 % (11.5-14.5)
[2022-05-23 06:26] LABS: Anion Gap 4 mmol/L (8-16); Blood Urea Nitrogen 35 mg/dL (9-20); Calcium 8.4 mg/dL (8.4-10.2); Carbon Dioxide 29 mmol/L (22-30); Chloride 102 mmol/L (98-107); Estimated CRCL calculation 18 ml/min; Estimated Glomerular Filt Rate 34; Glucose 85 mg/dL (65-110); Potassium 4.1 mmol/L (3.4-5.0); Sodium 135 mmol/L (137-145)
[2022-05-23] MEDS: SULFAMETHOXAZOLE/TRIMETHOPRIM 400/80 MG TABLET 1 TAB PO (08:01)
[2022-05-23] MEDS: CYANOCOBALAMIN 1,000 MCG TABLET 1000 MCG PO (08:02)
[2022-05-23] MEDS: ENOXAPARIN 30 MG/0.3 ML SYRINGE SUB-Q (08:04)
--- NOTE | 2022-05-23 13:06 | PM.IMPN ---
Progress Note: A&P Assessment and Plan (1) Altered mental status: Code(s): R41.82 - Altered mental status, unspecified Status: Acute Assessment and Plan: CT head with no acute intracranial pathology UDS negative. TSH normal. CXR with no pneumonia. No leukocytosis. UA with nitrites, leukocyte esterase and blood. Urine Culture noted. Underlying dementia suspected; aggressive behavior has improved. This has been a issue with his discharge. (2) Acute UTI: Code(s): N39.0 - Urinary tract infection, site not specified Status: Acute Assessment and Plan: Increase in Cr. Will change Bactrim to Keflex. (3) Anemia: Code(s): D64.9 - Anemia, unspecified Status: Acute Assessment and Plan: With macrocytosis and thrombocytopenia, c/w B12 deficiency. Continue B12 replacement (4) Vitamin B12 deficiency: Code(s): E53.8 - Deficiency of other specified B group vitamins Status: Acute Assessment and Plan: Nutritional deficiency vs malabsorption. Continue PO replacement. (5) Elevated serum creatinine: Code(s): R79.89 - Other specified abnormal findings of blood chemistry Status: Acute Assessment and Plan: Possibly due to acute infection and bactrim. Will change abx. Encourage oral intake. Follow Subjective Date/time seen: 05/23/22 13:06 Interval history: 86yo male here for agitation. Patient is alert but confused and thus unable to provide hx. Exam Narrative: AF 98.1 118/67 75 17 99% ra Gen - NARD sitting up in chair Chest - CTA bilaterally, nml RR CV - RRR S1/S2 Abd - Soft, NT/ND, Positive BS Ext - No pedal edema Neuro - Alert but confused Psych - Nml mood and affect Skin - Warm and dry Objective Data Vital Signs Vital Signs: Vital Signs - 24 hr 05/22/22 14:30 05/22/22 20:00 05/22/22 21:38 Temperature 97.5 F L 98.4 F Pulse Rate 82 76 Respiratory Rate 14 17 Blood Pressure 121/73 111/54 L Pulse Oximetry 99 100 Oxygen Delivery Room Air 05/23/22 05:29 05/23/22 08:00 Temperature 98.1 F Pulse Rate 75 Respiratory Rate 17 Blood Pressure 118/67 Pulse Oximetry 99 Oxygen Delivery Room Air Intake/Output Intake/Output: Intake & Output 05/20/22 05/21/22 05/22/22 05/23/22 23:59 23:59 23:59 23:59 Intake Total 399 746 6434 470 Output Total 600 100 Balance 296 555 6896 370 Meds/Results Medications: Active Medications Generic Name Dose Route Start Last Admin Trade Name Freq PRN Reason Stop Dose Admin Acetaminophen 650 mg 05/18/22 08:45 Acetaminophen 325 Mg Tablet PO Q6H PRN Mild Pain (1-3) or Fever Bisacodyl 10 mg 05/18/22 08:45 Bisacodyl 10 Mg Suppository RECTAL ONCE PRN Constipation Cyanocobalamin 1,000 mcg 05/20/22 09:00 05/23/22 08:02 Cyanocobalamin 1,000 Mcg Tablet PO 1,000 mcg QAM CHELSEA Administration Enoxaparin Sodium 30 mg 05/18/22 09:00 05/23/22 08:04 Enoxaparin 30 Mg/0.3 Ml Syringe SUB-Q 30 mg DAILY CHELSEA Administration Ondansetron HCl 4 mg 05/18/22 08:45 Ondansetron Inj 4 Mg/2 Ml Vial IV PUSH Q6H PRN Nausea And Vomiting Trimethoprim/Sulfamethoxazole 1 tab 05/21/22 09:00 05/23/22 08:01 Sulfamethoxazole/Trimethoprim 400/80 Mg Tablet PO 1 tab Q12HR CHELSEA Administration Radiology Results: ITS Impressions Chest X-Ray 05/18/22 06:29 IMPRESSION: 1. Emphysema. Head CT 05/18/22 08:23 IMPRESSION: 1. No acute intracranial abnormality. 2. Age related findings. Renal Ultrasound 05/19/22 16:29 IMPRESSION: 1. 3 mm nonobstructing left renal stone. Otherwise normal kidneys with no hydronephrosis. Labs Labs: Laboratory Results - last 24 hr 05/23/22 05/23/22 05:16 05:16 WBC 6.0 RBC 3.64 L Hgb 12.1 L Hct 37.7 L MCV 103.6 H MCH 33.2 MCHC 32.1 RDW 13.2 Plt Count 150 MPV 9.7 Immature Gran % (Auto) 0.3 Neut % (Auto) 63.0
[2022-05-23 14:30] VITALS: BP 117/67; PULSE 86; RESP 16; TEMP 37.1; O2SAT 97
[2022-05-23] MEDS: CEPHALEXIN 500 MG CAPSULE PO ×2 (15:51→21:32)
[2022-05-23 21:36] VITALS: BP 106/75; PULSE 80; RESP 16; TEMP 36.7; O2SAT 100
[2022-05-24 05:05] VITALS: BP 104/89; PULSE 77; RESP 18; TEMP 36.6; O2SAT 98
[2022-05-24 05:34] LABS: Anion Gap 5 mmol/L (8-16); Blood Urea Nitrogen 36 mg/dL (9-20); Calcium 8.8 mg/dL (8.4-10.2); Carbon Dioxide 31 mmol/L (22-30); Chloride 100 mmol/L (98-107); Estimated CRCL calculation 15 ml/min; Estimated Glomerular Filt Rate 27; Glucose 115 mg/dL (65-110); Sodium 136 mmol/L (137-145)
[2022-05-24] MEDS: CEPHALEXIN 500 MG CAPSULE PO ×2 (06:01→14:25)
[2022-05-24] MEDS: ENOXAPARIN 30 MG/0.3 ML SYRINGE SUB-Q (07:52)
[2022-05-24] MEDS: CYANOCOBALAMIN 1,000 MCG TABLET 1000 MCG PO (07:52)
[2022-05-24] MEDS: SODIUM CHLORIDE 0.9% IV 1,000 ML 100 ML IV CONT (07:54)
[2022-05-24 12:38] LABS: Potassium 4.7 mmol/L (3.4-5.0)
[2022-05-24 12:40] LABS: Anion Gap 5 mmol/L (8-16); Blood Urea Nitrogen 35 mg/dL (9-20); Calcium 8.6 mg/dL (8.4-10.2); Carbon Dioxide 32 mmol/L (22-30); Chloride 100 mmol/L (98-107); Estimated CRCL calculation 15 ml/min; Estimated Glomerular Filt Rate 27; Glucose 126 mg/dL (65-110); Sodium 137 mmol/L (137-145)
--- NOTE | 2022-05-24 13:03 | PM.DS ---
DS: Admitting Diagnosis Discharge Date 05/24/22 Admitting Diagnosis Altered mental status DS: Discharge Diagnosis Discharge Diagnosis (1) Altered mental status: Code(s): R41.82 - Altered mental status, unspecified Status: Acute (2) Acute UTI: Code(s): N39.0 - Urinary tract infection, site not specified Status: Acute (3) Anemia: Code(s): D64.9 - Anemia, unspecified Status: Acute (4) Vitamin B12 deficiency: Code(s): E53.8 - Deficiency of other specified B group vitamins Status: Acute (5) Elevated serum creatinine: Code(s): R79.89 - Other specified abnormal findings of blood chemistry Status: Acute DS: Summary Hospital Course Reason for hospitalization: 86yo male here for agitation. Please see H&P for details Hospital Course: CT head with no acute intracranial pathology? UDS negative.? TSH normal.? CXR with no pneumonia.? No leukocytosis.? UA with nitrites, leukocyte esterase and blood. Urine culture noted. Underlying dementia suspected with aggressive behavior.?His behavior has improved. Patient was found to have anemia with macrocytosis and thrombocytopenia. B12 level was low. He was given B12 replacement. Patient also noted to have acute on chronic kidney disease. He was on Bactrim which could be contributing to the elevated creatinine levels. Antibiotics were adjusted. Patient is not eating very much. Had a long discussion with the patient's daughter. Options were discussed including feeding tube but she declined any type of feeding tube. We discussed hospice as an option. She was okay with discharge and was agreeable for hospice consult at the facility. All questions answered. She was aware of the rising creatinine. The patient overall did well and was able to be discharged on 05/24/22 Status at Discharge Cognitive/behavioral status at discharge: Stable Time Spent with Patient Time attestation: Total time spent providing and/or coordinating discharge services: 35 minutes Time spent: Greater than 30 minutes Exam Narrative: AF ? 97.8 104/89 77 18 98% ra Gen - NARD sitting up in chair Chest - distant BS CV - RRR S1/S2 Abd - Soft, NT/ND, Positive BS Ext - No pedal edema Neuro - Alert but confused Psych - Nml mood and affect. cooperative Skin - Warm and dry DS: Data Data Completed and Pending Labs on day of discharge: Labs from last 24 hours 05/24/22 05/24/22 12:02 04:52 Sodium 137 136 L Potassium 4.7 4.0 Chloride 100 100 Carbon Dioxide 32 H 31 H Anion Gap 5 L 5 L BUN 35 H 36 H Creatinine 2.30 H 2.30 H Estim Creat Clear Calc 15 15 Estimated GFR 27 L 27 L Glucose 126 H 115 H Calcium 8.6 8.8 Discharge Plan Discharge Attending physician on discharge: Wili Sanchez Discharging Clinician: Wili Sanchez Anticipated Discharge Date/Time: 05/24/22 13:12 Patient Disposition: NH Group Home/Asst Living Activity: as tolerated Diet: regular Discharge Instructions: Continue dietary supplements. Hospice consult per family request. Follow-up with the provider at the facility Thank you for using [facility] for your health care needs. Patient Instructions: Antibiotic Form, Pain Management (DC) Stand Alone Forms: General Discharge Information Follow-up/Referrals: Kendell Chung MD [Primary Care Provider] - Call for Appointment Discharge Medications: New bisacodyl 10 mg Suppository 10 mg RECTAL ONCE PRN (Reason: Constipation) Qty: 12 0RF cyanocobalamin (vitamin B-12) [Vitamin B-12] 1,000 mcg Tablet 1,000 mcg PO QAM Qty: 30 0RF acetaminophen [Mapap (acetaminophen)] 325 mg Tablet 650 mg PO Q6H PRN (Reason: Mild Pain (1-3) Or Fever) Qty: 30 0RF cephalexin 500 mg Capsule 500 mg PO Q8HR Qty: 11 0RF Continued No Home Medications Date of admission: 05/18/22 06:09 Primary Care Provider: Kendell Chung
--- NOTE | 2022-05-24 14:19 | PC.NURSE ---
report called to Sonia at [facility] awaiting ambulance transfer
[2022-05-24 15:09] LABS: EDCOVIDSCREEN Negative (Negative)
== END 2022-05-24 15:20 ==
LOC: ANHED 05-18 06:08 → ANH2MED 05-18 16:19 → ANH3MEDSUR 05-25 12:45
PROVIDERS: Internal Medicine; Admitting Provider Family Medicine; Emergency Provider Emergency Medicine; PCP Family Medicine Adolescent Medicine; Visit Provider Internal Medicine
DX: R41.82 Altered mental status, unspecified (principal); N39.0 Urinary tract infection, site not specified; B95.7 Other staphylococcus as the cause of diseases classified elsewhere; D64.9 Anemia, unspecified; E53.8 Deficiency of other specified B group vitamins; R45.1 Restlessness and agitation; R79.89 Other specified abnormal findings of blood chemistry; N20.0 Calculus of kidney; R45.850 Homicidal ideations; G93.40 Encephalopathy, unspecified; R94.4 Abnormal results of kidney function studies; R91.1 Solitary pulmonary nodule; J43.9 Emphysema, unspecified; Z20.822 Contact with and (suspected) exposure to COVID-19; Z87.442 Personal history of urinary calculi; Z87.891 Personal history of nicotine dependence; Z98.890 Other specified postprocedural states
CPT/HCPCS: 36415; 36600; 51701; 70450; 71045; 76775; 80048; 80053; 80307; 81001; 82570; 82607; 82746; 82805; 83540; 83550; 84300; 84443; 85025; 85046; 87040; 87086; 87147; 87181; 87186; 87426; 87636; 96365; 96366; 96372; 96375; 99285; A9270; C9803; G0378; J0696; J1200; J1630; J1650; J2060; J3420; J7030

== ENCOUNTER 2025-01-16 17:30 | Emergency (ER) | payer MEDICARE, SELFPAY ==
--- NOTE | ~2025-01-16 | CT_ITS ---
EXAMINATION: CT brain wo con DATE: 01/16/2025 18:16 INDICATION: unresponsive episode . TECHNIQUE: Computed tomography (CT) of the head was performed without intravenous contrast. The mA wa s adjusted according to patient size. Iterative reconstruction technique was employed. The dose-lengt h product was 1210.67 mGy-cm. COMPARISON: Both 1622. FINDINGS: No acute intracranial hemorrhage or extra-axial fluid collection. No hydrocephalus, mass, or herniation. No acute ischemic infarct. Unremarkable dural venous sinus attenuation. No acute osseous abnormality. The aerated spaces are clear. Moderate atrophy and mild chronic white matter change. Atherosclerotic intracranial calcification. Bi lateral lens replacements. IMPRESSION: No acute intracranial process. Reviewed, dictated and finalized at location K.
--- NOTE | ~2025-01-16 | XR_ITS ---
EXAMINATION: XR chest 1V Exam Date/Time: 01/16/2025 18:20 CDT HISTORY: sob Comparison: 05/18/2022. RESULT: Lines, tubes, and devices: None. Lungs and pleura: No focal consolidation, pleural effusion, or pneumothorax. Likely emphysematous ch marv. Calcified granulomas. Cardiomediastinal silhouette: Stable. Other: No acute osseous or upper abdominal finding. IMPRESSION: No acute cardiopulmonary process. Reviewed, dictated and finalized at location K.
[2025-01-16 17:14] VITALS: BP 144/83; PULSE 73; RESP 14; O2SAT 98
[2025-01-16 17:44] VITALS: PULSE 67
--- NOTE | 2025-01-16 17:59 | ECG_ITS ---
Test Date: 2025-01-16 18:41:35 Measurements Intervals [place] Rate: 63 P: 68 WI: 143 QRS: 51 QRSD: 133 T: 71 QT: 443 QTc: 455 Interpretive Statements SINUS RHYTHM WITH OCCASIONAL VENTRICULAR PREMATURE COMPLEXES LEFT BUNDLE BRANCH BLOCK BASELINE ARTIFACT- I, II, III, AVR, AVL, AVF, V1-V6 ABNORMAL ECG No previous ECG available for comparison Electronically Signed On 01-16-2025 19:55:14 CDT by Onesimo Jin D.O.
--- NOTE | 2025-01-16 18:20 | PCRCNOTE ---
Patient was in imaging when RT arrived to draw arterial blood gas.
[2025-01-16 18:36] LABS: Alveolar/Arterial O2 Gradient 50.0 mmHg; Fractional Inspired Oxygen 28 %; HCO3 ABG 25.0 mEq/l (22.0-26.0); Liters per Minute 2.0 LPM; Modified Allen's Test Pass; Oxygen Content ABG 18.8 %vol (16.0-22.0); Oxygen Saturation ABG 97.3 % (95.0-100.0); PCO2 ABG 43.3 mmHg (35.0-45.0); PO2 ABG 98.5 mmHg (80.0-100.0); PO2 FiO2 Ratio Arterial Blood 3.52 %; Site Drawn RIGHT RADIAL
[2025-01-16 18:56] LABS: Hematocrit 41.2 % (42.0-52.0); Hemoglobin 13.0 g/dL (14.0-18.0); Immature Granulocyte Percent A 0.6 % (0-0.5); Immature Platelet Fraction Pct 4.3 % (0.9-11.2); Lymphocytes Absolute Auto 1.79 K/mm3 (0.9-3.2); Mean Corpuscular HGB Conc 31.6 g/dl (32-36); Mean Corpuscular Hemoglobin 32.7 pg (26-34); Mean Corpuscular Volume 103.8 fl (80-100); Nucleated Red Blood Cells Absolute Auto 0.000 K/mm3 (0.0-0.012); Nucleated Red Blood Cells Perc 0.0 % (0.0-0.2); Platelet Count Result 140 k/mm3 (150-375); Red Blood Count 3.97 M/mm3 (4.6-6.20); White Blood Count 8.0 K/mm3 (4.5-10.0)
[2025-01-16 19:04] LABS: Alanine Aminotransferase 8 U/L (6-50); Albumin Level 3.7 g/dL (3.5-5.1); Alkaline Phosphatase 101 U/L (38-126); Anion Gap 2 mmol/L (4-12); Aspartate Amino Transferase 17 U/L (17-59); Bilirubin,Total 0.4 mg/dL (0.2-1.3); Blood Urea Nitrogen 24 mg/dL (9-20); Calcium 8.7 mg/dL (8.4-10.2); Carbon Dioxide 30 mmol/L (22-30); Chloride 107 mmol/L (98-107); Estimated CRCL calculation 26 ml/min; Estimated Glomerular Filt Rate 43; Glucose 104 mg/dL (65-110); Potassium 4.6 mmol/L (3.4-5.0); Sodium 139 mmol/L (137-145); Total Protein 6.9 g/dL (6.3-8.2)
[2025-01-16 19:06] LABS: INR 1.1; Prothrombin Time 14.5 Seconds (11.1-14.7)
--- NOTE | 2025-01-16 19:07 | ED_ITS ---
HPI - General Adult General Chief complaint: Shortness of Breath/Dyspnea Stated complaint: resp distress Time Seen by Provider: 01/16/25 17:54 Source: EMS Mode of arrival: EMS Limitations: dementia History of Present Illness HPI narrative: 89-year-old with a history of dementia was brought in from a residential with the complaints of unresponsive episode patient was found to be hypoxic upon their arrival patient by the time EMS arrived he is alert but still hypoxic. Patient upon arrival to the ER is wide awake alert wants everything out and he would like to go back. He denies having any headache or chest pain. Onset (ago): hour(s) (1) Related Data Allergies Allergy/AdvReac Type Severity Reaction Status Date / Time No Known Allergies Allergy Verified 08/26/23 10:25 Review of Systems 2 Review of Systems: ROS unobtainable: Yes unobtainable due to mental status PMFSH Past Medical History Medical History Nephrolithiasis (2015) Surgical History Surgical History H/O inguinal hernia repair (2003) left Social History Social History Smoking status: Former smoker Alcohol intake: never Substance use: never Living arrangements: with family Gender identity (if verbalized by the patient): Male Spiritual care concerns: No Exam 2 Narrative: GENERAL: Well-appearing, well-nourished, and in no acute distress. Quite irritable HEAD: Normocephalic, atraumatic. EYES: PERRLA and EOMI. ENT: Nares clear, no rhinorrhea or epistaxis. Mucous membranes moist. NECK: Supple. CHEST: Clear to auscultation. No respiratory distress. HEART: Regular rate and rhythm. No murmur heard. Normal peripheral pulses. ABDOMEN: Soft, nontender, nondistended, normal active bowel sounds. EXTREMITIES: Normal range of motion. No edema. SKIN: Warm, dry, no rash. NEURO: No focal deficits. Alert and oriented x1 PSYCH: Normal mood and affect. Course Course Emergency Course: Patient remained alert , i did inform him and his daughter about lab and CT findings , feels comfortable taking him home. Vital Signs Vital signs: Vital Signs Pulse Rate 73 01/16/25 17:14 Respiratory Rate 14 01/16/25 17:14 Blood Pressure 144/83 H 01/16/25 17:14 Pulse Oximetry 98 01/16/25 17:14 Oxygen Delivery Non-Rebreather Mask 01/16/25 17:14 Oxygen Flow Rate 15 01/16/25 17:14 Pulse Rate 67 01/16/25 17:44 Respiratory Rate 14 01/16/25 17:14 Blood Pressure 144/83 H 01/16/25 17:14 Pulse Oximetry 98 01/16/25 17:14 Oxygen Delivery Room Air 01/16/25 17:45 Oxygen Flow Rate 15 01/16/25 17:14 Medical Decision Making Vital Signs Vital Signs: Vital Signs Pulse Rate 73 01/16/25 17:14 Respiratory Rate 14 01/16/25 17:14 Blood Pressure 144/83 H 01/16/25 17:14 Pulse Oximetry 98 01/16/25 17:14 Oxygen Delivery Non-Rebreather Mask 01/16/25 17:14 Oxygen Flow Rate 15 01/16/25 17:14 Pulse Rate 67 01/16/25 17:44 Respiratory Rate 14 01/16/25 17:14 Blood Pressure 144/83 H 01/16/25 17:14 Pulse Oximetry 98 01/16/25 17:14 Oxygen Delivery Room Air 01/16/25 17:45 Oxygen Flow Rate 15 01/16/25 17:14 Lab Data 01/16/25 18:46 01/16/25 18:46 Labs: Lab Results 01/16/25 Range/Units 18:46 WBC 8.0 (4.5-10.0) K/mm3 RBC 3.97 L (4.6-6.20) M/mm3 Hgb 13.0 L (14.0-18.0) g/dL Hct 41.2 L (42.0-52.0) % MCV 103.8 H (80-100) fl MCH 32.7 (26-34) pg MCHC 31.6 L (32-36) g/dl RDW 13.3 (11.5-14.5) % Plt Count 140 L (150-375) k/mm3 MPV 10.0 (7.4-10.4) fl Immature Gran % (Auto) 0.6 H (0-0.5) % Neut % (Auto) 63.4 (45.5-73.1) % Lymph % (Auto) 22.5 (18.3-44.2) % Hitchcock % (Auto) 8.3 (2.6-8.5) % Eos % (Auto) 4.9 H (0-4.4) % Baso % (Auto) 0.3 (0.2-1.2) % Lymph # (Auto) 1.79 (0.9-3.2) K/mm3 Hitchcock # (Auto) 0.7 H (0.1-0.6) K/mm3 Eos # (Auto) 0.4 H (0-0.3) K/mm3 Baso # (Auto) 0.0 (0.0-0.1) K/mm3 Abs Immat Gran (auto) 0.05 H (0.00-0.031) K/mm3 Absolute Neuts (auto) 5.1 (1.3-6.7) K/mm3 Absolute Nucleated RBC 0.000 (0.0-0.012) K/mm3 Nucleated RBC % 0.0 (0.0-0.2) % % Immature Plt Fraction 4.3 (0.9-11.2) % PT Pending INR Pending D-Dimer Pending Sodium 139 (137-145) mmol/L Potassium 4.6 (3.4-5.0) mmol/L Chloride 107 (98-107) mmol/L Carbon Dioxide 30 (22-30) mmol/L Anion Gap 2 L (4-12) mmol/L BUN 24 H D (9-20) mg/dL Creatinine 1.52 H (0.7-1.3) mg/dL Estim Creat Clear Calc 26 ml/min Estimated GFR 43 L (59 - ) Glucose 104 (65-110) mg/dL Calcium 8.7 (8.4-10.2) mg/dL Total Bilirubin 0.4 (0.2-1.3) mg/dL AST 17 (17-59) U/L ALT 8 (6-50) U/L Alkaline Phosphatase 101 (38-126) U/L Troponin I Pending Total Protein 6.9 (6.3-8.2) g/dL Albumin 3.7 (3.5-5.1) g/dL ABG Data ABG results: 01/16/25 18:31 Puncture Site Right radial ABG pH 7.379 ABG pCO2 43.3 ABG pO2 98.5 ABG PO2/FiO2 Ratio 3.52 ABG HCO3 25.0 ABG O2 Saturation 97.3 ABG O2 Content 18.8 ABG Base Excess -0.3 A-a Gradient 50.0 Oxyhemoglobin 96.9 Total Hemoglobin 13.7 O2 Delivery Device Nasal cannula O2 Liters/Min 2.0 FiO2 28 Imaging Data Radiologist's impression: ITS Impressions Head CT 01/16/25 18:23 IMPRESSION: No acute intracranial process. Chest X-Ray 01/16/25 18:34 IMPRESSION: No acute cardiopulmonary process. Discharge Plan Discharge Clinical Impression: Hypoxemia, Episode of unresponsiveness Patient Disposition: NH Fdc/Asst Living Condition: Stable Instructions: Altered Mental Status (ED) Patient Language: Amharic Prescriptions: No Action cyanocobalamin (vitamin B-12) [Vitamin B-12] 1,000 mcg Tablet 1,000 mcg PO QAM Qty: 30 0RF acetaminophen [Mapap (acetaminophen)] 325 mg Tablet 650 mg PO Q6H PRN (Reason: Mild Pain (1-3) Or Fever) Qty: 30 0RF trazodone 100 mg tablet See Rx Instructions .ROUTE .COMPLEX Qty: 14 12RF Dose Instruction: TAKE 1 TABLET BY MOUTH AT BEDTIME Rx Instructions: TAKE 1 TABLET BY MOUTH AT BEDTIME Follow-up/Referrals: Kendell Chung MD [Primary Care Provider] - Time of Disposition: 19:14
--- OUTSIDE RECORDS SUMMARY | 2025-01-16 19:13 | XMS_ITS | Continuity of Care Document ---
Author Organization [employer] [facility] Address [address] [place] [address] Dr Gasca [address] [place] [phone] Phone Care Team Providers Care Color Mixer Name Role Phone Raji Jung Unavailable Unavailable Procedures Procedure Date Office/outpatient Visit, Est Eye Exam Established Pt Ophthalmoscopy, Subsequent Ophthalmoscopy, Subsequent Post-op Follow-up Visit Post-op Follow-up Visit Ophthalmoscopy, Subsequent Post-op Follow-up Visit Ophthalmoscopy, Subsequent Post-op Follow-up Visit Ophthalmoscopy, Subsequent Eye Exam, New Patient Ophthalmoscopy Optic Nerve Topography Office/outpatient Visit, Est Post-op Follow-up Visit Post-op Follow-up Visit Post-op Follow-up Visit Post-op Follow-up Visit Post-op Follow-up Visit Clear Lens Exchange-Single Vision IOL Au Presbyopia Correcting IOL Post-op Follow-up Visit Post-op Follow-up Visit Clear Lens Exchange Premium Presbyopia Correcting IOL Office/outpatient Visit, New IOLMaster Advance Directives Directive Yes / No Effective Date File Name No Information Encounters Encounter Description Practice Location Reason(s) For Visit Diagnoses Date Provider Providers Copied on Encounter Office/outpat ient Visit, Est [facility], [address], [place], [place], [id number], [place] tel:[phone] [facility] No Information Carmine-2 1-201 0 Krdominga Galohil. [address], [place], [address], [place]. tel:[phone] [facility], [address], [place], [place], [id number], [place] tel:[phone] [facility] No Information Oscar-2 8-201 0 Fortunato Harrington. [address] [place], [address], [place]. tel:[phone] [facility], [address], [place], [place], [id number], [place] tel:[phone] [facility] No Information May-0 8-201 0 Cameron OD Can. [address], [place], [address], [place]. tel:[phone] [facility], [address], [place], [place], [id number], [place] tel:[phone] [facility] No Information Apr-2 6-201 0 Fortunato Harrington. [address] [place], [address], [place]. tel:[phone] Referring Provider: Len Lambert, [address] [place], [address]. tel:[phone] [facility], [address], [place], [place], [id number], [place] tel:[phone] [facility] No Information Mar-2 2-201 0 Fortunato Harrington. [address] [place], [address], [place]. tel:[phone] Referring Provider: Len Lambert, [address] [place], [address]. tel:[phone] [facility], [address], [place], [place], [id number], [place] tel:[phone] [facility] No Information Aug-0 8-201 0 Fortunato Harrignton. [address] [place], [address], [place]. tel:[phone] Referring Provider: Len Lambert, [address] [place], [address]. tel:[phone] [facility], [address], [place], [place], [id number], [place] tel:[phone] [facility] No Information Jul-0 8-201 0 Fortunato Harrington. [address] [place], [address], [place]. tel:[phone] Referring Provider: Raji dempsey, [facility] [facility] [address], [address]. tel:[phone] Office/outpat ient Visit, Est [facility], [address], [place], [place], [id number], [place] tel:[phone] [facility] No Information Robbie-2 7-201 0 Channingishnasjorge l Raji. [address], [place], [address], [place]. tel:[phone] [facility], [address], [place], [place], [id number], [place] tel:[phone] [facility] No Information Oct-2 1-200 9 Krishnasjorge l Raji. [address], [place], [address], [place]. tel:[phone] [facility], [address], [place], [place], [id number], [place] tel:[phone] [facility] No Information Sep-0 2-200 9 Krishnasamy Raji. [address] [facility] [address], [place], [address], [place]. tel:[phone] [facility], [address], [place], [place], [address], [place] tel:[phone] [facility] No Information Aug-2 0-200 9 Chavo Blanchard. [address], [place], [place], [facility], [place]. tel:[phone] [facility], [address], [place], [place], [address], [place] tel:[phone] [facility] No Information Aug-1 2-200 9 Krishnasamy Raji. [facility]1 [facility] [address], [place], [facility], [place]. tel:[phone] [facility], [address], [place], [place], [id number], [place] tel:[phone] [facility] No Information Aug-0 4-200 9 Karli Callahan. [facility], [place], [address], [place]. tel:[phone] Referring Provider: Raji dempsey, [facility]1 [facility] [address], [place], [address]. tel:[phone] [facility], [address], [place], [place], [id number], [place] tel:[phone] [facility] No Information Aug-0 3-200 9 Krishnasamy Raji. [facility]1 [facility] [address], [place], [address], [place]. tel:[phone] [facility], [address], [place], [place], [id number], [place] tel:[phone] [facility] No Information 2-200 9 Krishnasamy Raji. [address] [place] [address], [facility], . tel:[phone] [facility], [address], [place], [place], [id number], tel:[phone] [facility] No Information 7-200 9 Krishnasamy Raji. [address] [place] [address], [facility], [place]. tel:[phone] [facility], [address], [place], [place], [id number], tel:[phone] [facility] No Information 6-200 9 Krishnasamy Raji. [address] [place] [address], [facility], . tel:[phone] Office/outpat ient Visit, [facility], [address], [place], [place], [id number], tel:[phone] [facility] No Information 0 8-200 9 Krishnasamy Raji. [address] [place] [address], [facility], . tel:[phone] Referring Provider: Raji dempsey, [address] [place] [address], [facility]. tel:[phone] Family History Family Member Type Diagnosis Age At Onset No Information Payers Payer name Insurance type Covered republican ID Authoriza tion(s) No Information Social History Type Description Quantity Date Captured Comments Sex Male Smoking Status No Information Chief Complaint And Reason For Visit No Information Reason For Referral Reason For Referral No Information History Of Present Illness Encounter Date Complaint History Of Prese nt Illness No Information Functional Status Date Functional Assessmen t No Information Instructions Date Instruction Additional Infor mation No Information Assessments Type Assessment Date No Information Patient Care Teams Name Effective Dates (start - stop) Status Members No Information
[2025-01-16 19:16] LABS: Troponin I < 0.012 ng/mL (0.000-0.034)
[2025-01-16 19:24] VITALS: BP 130/86; PULSE 67; RESP 18; O2SAT 100
[2025-01-16 19:56] VITALS: BP 135/69; PULSE 63; RESP 22; O2SAT 100
[2025-01-16 19:58] VITALS: BP 135/69; PULSE 63; RESP 22; O2SAT 100
== END 2025-01-16 20:13 ==
PROVIDERS: Emergency Provider Family Medicine; PCP Family Medicine Adolescent Medicine
DX: R40.4 Transient alteration of awareness (principal); R09.02 Hypoxemia; F03.90 Unspecified dementia, unspecified severity, without behavioral disturbance, psychotic disturbance, mood disturbance, and anxiety; Z87.442 Personal history of urinary calculi; Z87.891 Personal history of nicotine dependence; I49.3 Ventricular premature depolarization; I44.7 Left bundle-branch block, unspecified
CPT/HCPCS: 36415; 36600; 70450; 71045; 80053; 82805; 84484; 85018; 85025; 85055; 85380; 85610; 93005; 99284

== ENCOUNTER 2025-03-16 09:03 | Emergency (ER) | payer MEDICARE, SELFPAY ==
[2025-03-16] VITALS (7 sets, daily range): BP systolic 112–148; BP diastolic 43–77; PULSE 63–92; RESP 13–23; TEMP 36.4; O2SAT 99–100
--- NOTE | ~2025-03-16 | CT_ITS ---
EXAMINATION: CT brain wo ledy, 03/16/2025 12:22 CDT HISTORY: ams COMPARISON: No comparisons available. Technique: Axial images obtained of the brain without contrast. One or more of the following dose reduction techniques were used: automated exposure control, adjustment of the mA and/or kV according to patient size, use of iterative reconstruction technique. Findings: No acute infarct or parenchymal hemorrhage. No abnormal mass or mass effect. No midline shift. No extra-axial fluid collections. No hydrocephalus. Mastoid air cells unremarkable. Sinuses and orbits unremarkable. No acute fracture. No significant facial or scalp soft tissue swelling evident. No radiopaque foreign body is seen. Impression: 1.No acute intracranial abnormality. Reviewed, dictated and finalized at location P. Impression: 1.No acute intracranial abnormality.
--- NOTE | ~2025-03-16 | XR_ITS ---
EXAMINATION: XR chest 1V portable DATE: 03/16/2025 12:40 INDICATION: Altered mental status. Congestion. TECHNIQUE: frontal view of the chest was obtained. COMPARISON: Chest radiograph dated 01/16/2025 FINDINGS: Hyperexpansion of lungs with increased lucency and architectural distortion consistent with emphysema which is better appreciated on CT of the abdomen and pelvis dated 04/22/16. There are scattered small calcified pulmonary nodules in both lungs consistent with old granulomatous disease. Chronic thin triangular opacity projecting over the anterior right fifth rib. Minimal streaky atelectasis at the bilateral lung bases. No other airspace opacities, pulmonary edema, pleural effusion or pneumothorax. Cardiomediastinal silhouette is normal. Mild thoracolumbar dextrocurvature with moderate spondylosis. IMPRESSION: 1. Emphysema with minimal bibasilar atelectasis. Reviewed, dictated and finalized at location A.
--- NOTE | 2025-03-16 09:14 | ECG_ITS ---
Test Date: 2025-03-16 09:20:00 Measurements Intervals [place] Rate: 59 P: 77 [place]: 153 QRS: -68 QRSD: 132 T: 78 QT: 458 QTc: 455 Interpretive Statements SINUS BRADYCARDIA LEFT AXIS DEVIATION LEFT BUNDLE BRANCH BLOCK BASELINE ARTIFACT- I, II, III, AVR, AVL, AVF ABNORMAL ECG Compared to ECG 01/16/2025 18:41:35 NO SIGNIFICANT CHANGE Electronically Signed On 03-16-2025 09:22:02 CDT by Onesimo Jin D.O.
[2025-03-16 09:32] LABS: Hematocrit 40.5 % (42.0-52.0); Hemoglobin 12.9 g/dL (14.0-18.0); Immature Granulocyte Percent A 0.8 % (0-0.5); Lymphocytes Absolute Auto 2.30 K/mm3 (0.9-3.2); Mean Corpuscular HGB Conc 31.9 g/dl (32-36); Mean Corpuscular Hemoglobin 32.7 pg (26-34); Mean Corpuscular Volume 102.5 fl (80-100); Nucleated Red Blood Cells Absolute Auto 0.000 K/mm3 (0.0-0.012); Nucleated Red Blood Cells Perc 0.0 % (0.0-0.2); Platelet Count Result 145 k/mm3 (150-375); Red Blood Count 3.95 M/mm3 (4.6-6.20); White Blood Count 9.1 K/mm3 (4.5-10.0)
[2025-03-16 09:46] LABS: INR 1.2; Prothrombin Time 14.9 Seconds (11.1-14.7)
[2025-03-16 09:47] LABS: Partial Thromboplastin Time 27.7 Seconds (22.3-36.8)
[2025-03-16 09:58] LABS: Alanine Aminotransferase 8 U/L (6-50); Albumin Level 3.5 g/dL (3.5-5.1); Alkaline Phosphatase 95 U/L (38-126); Anion Gap 5 mmol/L (4-12); Aspartate Amino Transferase 21 U/L (17-59); Bilirubin,Total 0.8 mg/dL (0.2-1.3); Blood Urea Nitrogen 27 mg/dL (9-20); Calcium 8.6 mg/dL (8.4-10.2); Carbon Dioxide 28 mmol/L (22-30); Chloride 105 mmol/L (98-107); Estimated CRCL calculation 24 ml/min; Estimated Glomerular Filt Rate 42; Glucose 99 mg/dL (65-110); Potassium 4.1 mmol/L (3.4-5.0); Sodium 138 mmol/L (137-145); Total Protein 6.9 g/dL (6.3-8.2)
[2025-03-16 10:26] LABS: Add Urine Microscopic? YES; Appearance Urine Clear (Clear); Glucose Urine UA Negative (Negative); Leukocyte Esterase Ur Negative LEU/UL (Negative); Need Manual Microscopic Reviewed; Nitrate Urine Negative (Negative); Non Pathogenic Casts 0-2; Specific Grav Ur 1.024 (1.001-1.035)
--- NOTE | 2025-03-16 11:59 | ED_ITS ---
HPI - Altered Mental Status General Chief Complaint: Altered Mental Status Stated Complaint: AMS Time Seen by Provider: 03/16/25 11:45 Source: patient and family (daughter and son) Mode of arrival: EMS Limitations: altered mental status and dementia History of Present Illness HPI narrative: Patient presents from [facility] with AMS since last night. He has a history of dementia. On trazodone. A&O to self at baseline. Has been more aggressive and less cooperative. Noncooperative on arrival; doesn't want to change into gown. Stating It's bullshit, I don't need help. PCP Dr Mccabe. He doesn't want to take his medications or wear O2 at baseline per family. Patient denying any symptoms/issues: no chest pain, SOB, abd pain, diarrhea, cough, vomiting, headache. Doesn't know why he is here. Doesn't want to be here in the ED. EMS had reported limb shaking on their radio report. Family doesn't know if perhaps patient has been experiencing chills versus spasm or other etiology. Related Data Allergies Allergy/AdvReac Type Severity Reaction Status Date / Time No Known Allergies Allergy Verified 01/16/25 19:58 PMFSH Past Medical History Medical History Restlessness and agitation Cognitive communication deficit Other abnormalities of gait and mobility Unsteadiness on feet Dysphagia, unspecified Nutritional anemia, unspecified Vitamin B12 deficiency anemia, unspecified Unspecified dementia, unspecified severity, without behavioral disturbance, psychotic disturbance, mood disturbance, and anxiety Nephrolithiasis (2016) Surgical History Surgical History H/O inguinal hernia repair (2003) left Social History Social History Social History: Code status: POLST signed 05/24/22 reports No CPR/Do Not Attempt Resuscitation (DNAR) with comfort-focused treatment Smoking status: Former smoker Alcohol intake: never Substance use: never Living arrangements: prison Additional living arrangements comments: [facility] since 07/30/22 Occupation/Education: retired 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 HEAD: Normocephalic, atraumatic. EYES: Non injected, non icteric ENT: Nares clear, no rhinorrhea or epistaxis. Gross auditory acuity intact. NECK: Supple. No meningismus. CHEST: Speaking in full sentences. No respiratory distress. Lungs CTAB without appreciable wheezes or crackles or consolidation. HEART: Regular rate and rhythm. . ABDOMEN: Soft, nondistended. No rigidity or guarding. Not peritoneal EXTREMITIES: Normal range of motion. No lower extremity edema. SKIN: Warm, dry, no rash. NEURO: No focal deficits. Alert and oriented to self. Answering questions. Following some commands. Normal speech without aphasia or dysarthria. PSYCH: Congruent mood and affect. Agitated at times, desiring to get out of bed. Course Vital Signs Vital signs: Vital Signs Temperature 97.6 F 03/16/25 09:03 Pulse Rate 63 03/16/25 09:03 Respiratory Rate 15 03/16/25 09:03 Blood Pressure 148/68 H 03/16/25 09:03 Pulse Oximetry 100 03/16/25 09:03 Oxygen Delivery Room Air 03/16/25 09:03 Temperature 97.6 F 03/16/25 09:03 Pulse Rate 76 03/16/25 16:02 Respiratory Rate 18 03/16/25 16:02 Blood Pressure 120/43 L 03/16/25 16:02 Pulse Oximetry 99 03/16/25 16:02 Oxygen Delivery Room Air 03/16/25 09:52 MDM - Altered Mental Status MDM Narrative Medical decision making narrative: Patient presents from local facility with report of altered mental status. A&O to self at baseline but has been more aggressive, less cooperative. At baseline doesn't want to take his meds or wear O2 although that had previously been advised/recommended. In the emergency department he is afebrile with acceptable vital signs although mild hypertension. This resolved on repeat assessment although then he has mild tachypnea. Because patient flags for sepsis, blood culture, lactic acid, and CRP are ordered as per protocol. However, after multiple attempts these were unable to be obtained as patient was agitated. He is without a leukocytosis and I suspect the sepsis flag was due to the intermittent tachypnea but this appears to be related to his agitation rather than intrinsic to any infectious process. Has not been desaturating, coughing, short of breath, febrile. CXR clear. Macrocytic anemia and mild thrombocytopenia, previously seen and stable/chronic. Patient's creatinine appears similar to previous and consistent with baseline CKD. Urinalysis is with sterile pyuria. Otherwise no acute findings on his workup. He does not appear to have an emphysema exacerbation as his lungs are clear on auscultation and he is not desaturating. I had discussed with the family they conservative workup with the goal of returning to his facility. This likely represents advancement of his dementia. Low utility in admitting given this is only likely to cause delirium and/or potential hospital-acquired infection. They agree. We discussed the role of palliative care and/or potentially hospice so that if desired, patient and/or family/decision makers could decide to keep him from being sent to the emergency department. Patient has also been placed on trazodone by primary care physician. May choose alternative medications/additional medications for behavior/aggresion. CPK and CRP normal. TSH normal. Differential Diagnosis Differential diagnosis: Likely altered mental status, delirium, dementia, hypoglycemia, hyponatremia, subarachnoid hemorrhage, sepsis and other (thyroid dysfunction, infection (UTI, PNA)) Lab Data Attestation: I reviewed the patient's lab results. 03/16/25 09:22 03/16/25 09:22 Labs: Lab Results 03/16/25 03/16/25 Range/Units 09:22 09:54 WBC 9.1 (4.5-10.0) K/mm3 RBC 3.95 L (4.6-6.20) M/mm3 Hgb 12.9 L (14.0-18.0) g/dL Hct 40.5 L (42.0-52.0) % MCV 102.5 H (80-100) fl MCH 32.7 (26-34) pg MCHC 31.9 L (32-36) g/dl RDW 13.1 (11.5-14.5) % Plt Count 145 L (150-375) k/mm3 MPV 9.9 (7.4-10.4) fl Immature Gran % (Auto) 0.8 H (0-0.5) % Neut % (Auto) 59.7 (45.5-73.1) % Lymph % (Auto) 25.4 (18.3-44.2) % Grainger % (Auto) 8.3 (2.6-8.5) % Eos % (Auto) 5.6 H (0-4.4) % Baso % (Auto) 0.2 (0.2-1.2) % Lymph # (Auto) 2.30 (0.9-3.2) K/mm3 Grainger # (Auto) 0.8 H (0.1-0.6) K/mm3 Eos # (Auto) 0.5 H (0-0.3) K/mm3 Baso # (Auto) 0.0 (0.0-0.1) K/mm3 Abs Immat Gran (auto) 0.07 H (0.00-0.031) K/mm3 Absolute Neuts (auto) 5.4 (1.3-6.7) K/mm3 Absolute Nucleated RBC 0.000 (0.0-0.012) K/mm3 Nucleated RBC % 0.0 (0.0-0.2) % PT 14.9 H (11.1-14.7) Seconds INR 1.2 APTT 27.7 (22.3-36.8) Seconds Sodium 138 (137-145) mmol/L Potassium 4.1 (3.4-5.0) mmol/L Chloride 105 (98-107) mmol/L Carbon Dioxide 28 (22-30) mmol/L Anion Gap 5 (4-12) mmol/L BUN 27 H (9-20) mg/dL Creatinine 1.56 H (0.7-1.3) mg/dL Estim Creat Clear Calc 24 ml/min Estimated GFR 42 L (59 - ) Glucose 99 (65-110) mg/dL Calcium 8.6 (8.4-10.2) mg/dL Total Bilirubin 0.8 (0.2-1.3) mg/dL AST 21 (17-59) U/L ALT 8 (6-50) U/L Alkaline Phosphatase 95 (38-126) U/L Total Creatine Kinase 64 (55-170) U/L C-Reactive Protein < 0.5 (<1.0) mg/dL Total Protein 6.9 (6.3-8.2) g/dL Albumin 3.5 (3.5-5.1) g/dL TSH 2.560 (0.465-4.680) uIU/mL Urine Color Yellow (Yellow) Urine Appearance Clear (Clear) Urine pH 5.5 (5.0-9.0) Ur Specific [place] 1.024 (1.001-1.035) Urine Protein Trace (Negative) mg/dL Urine Glucose (UA) Negative (Negative) mg/dL Urine Ketones Trace H (Negative) mg/dL Ur Blood (Man) Negative (Negative) Urine Nitrate Negative (Negative) Urine Bilirubin Negative (Negative) Urine Urobilinogen 1.0 (<2.0) mg/dL Add Ur Microanalysis Reviewed Leukocyte Esterase Rfl Negative (Negative) VAHID/UL Urine RBC 0-2 (0-2) /hpf Urine WBC 6-10 H (0-3) /hpf Ur Squamous Epith Cells None seen (Few) /hpf Urine Bacteria None seen /hpf Urine Casts 0-2 Imaging Data Radiologist's impression: Impression: 1.No acute intracranial abnormality. IMPRESSION: 1. Emphysema with minimal bibasilar atelectasis. ECG Data EKG #1: Attestation: I personally reviewed and interpreted this ECG as follows: ECG completion date: 03/16/25 ECG completion time: 09:20 Prior ECG tracings: available for review (EKG from 01/16/2025 appears similar) Interpretation: Sinus bradycardia rate of 59 beats per minute. VA interval 153. QRS 132. QT/QTC 458/455. Good R-wave progression across the precordial leads. Left axis deviation (QRS is positive with dominant R wave in Lead I; QRS is negative with dominant S wave in leads II, III, and aVF). Left bundle-branch block with QRS duration greater than 120 milliseconds, dominant S-wave in V1, broad monophasic R-wave in lateral leads (1, aVL, V5-V6). Discharge Plan Discharge Clinical Impression: Anemia, Uncooperative behavior, Thrombocytopenia, CKD (chronic kidney disease), Sterile pyuria, Emphysema, unspecified Patient Disposition: [facility]/Asst Living Condition: Stable Instructions: Antibiotic Form, Chronic Kidney Disease (ED), Chronic Kidney Disease Diet (DC), Emphysema (DC), Anemia (ED) Additional Instructions: No clear cause of patient's agitation and uncooperativeness although I suspect this is advancement of his dementia. Continue taking medications as prescribed. Follow-up with primary care physician to discuss medication changes/alternatives to consider. Return to the emergency department any new or worsening symptoms. Patient Language: Greenlandic Prescriptions: No Action cyanocobalamin (vitamin B-12) [Vitamin B-12] 1,000 mcg Tablet 1,000 mcg PO QAM Qty: 30 0RF acetaminophen [Mapap (acetaminophen)] 325 mg Tablet 650 mg PO Q6H PRN (Reason: Mild Pain (1-3) Or Fever) Qty: 30 0RF trazodone 100 mg tablet See Rx Instructions .ROUTE .COMPLEX Qty: 14 12RF Dose Instruction: TAKE 1 TABLET BY MOUTH AT BEDTIME Rx Instructions: TAKE 1 TABLET BY MOUTH AT BEDTIME Follow-up/Referrals: Alecia Garza APRN [Primary Care Provider, Family Practice] Kendell Chung MD [Physician, Family Practice] Stand Alone Forms: Fdc Discharge Time of Disposition: 15:42
--- NOTE | 2025-03-16 13:01 | PC.NURSE ---
pt facility called at [facility], and this RN reported there was not an update yet and will call back when there is one
--- NOTE | 2025-03-16 14:18 | PC.NURSE ---
pt very agitated and trying to get out of bed. security called to bedside. this RN got pt to calm down a bit and back into bed
[2025-03-16] MEDS: LORazepam (*CRX) 0.5 MG TABLET PO (14:44)
[2025-03-16 15:08] LABS: CRP < 0.5 mg/dL (<1.0); Creatine Kinase 64 U/L (55-170)
[2025-03-16 15:36] LABS: Thyroid Stimulating Hormone 2.560 uIU/mL (0.465-4.680)
== END 2025-03-16 16:06 ==
PROVIDERS: Emergency Provider Student in an Organized Health Care Education/Training Program; PCP Nurse Practitioner Family
DX: R41.82 Altered mental status, unspecified (principal); F03.90 Unspecified dementia, unspecified severity, without behavioral disturbance, psychotic disturbance, mood disturbance, and anxiety; D69.6 Thrombocytopenia, unspecified; D63.1 Anemia in chronic kidney disease; N18.9 Chronic kidney disease, unspecified; R82.81 Pyuria; J43.9 Emphysema, unspecified
CPT/HCPCS: 36415; 70450; 71045; 80053; 81001; 82550; 84443; 85025; 85610; 85730; 86140; 87086; 93005; 99284; A9270

== ENCOUNTER 2025-04-28 09:24 | Emergency (ER) | payer MEDICARE, SELFPAY ==
--- NOTE | ~2025-04-28 | XR_ITS ---
Examination: XR chest 2V Clinical History: SOB Comparison: 03/16/2025 Technique: PA and Lateral Findings: Cardiomediastinal silhouette normal size and configuration. Mild scattered scarring. Hyperinflation. No acute bony abnormality. IMPRESSION: 1. No acute cardiopulmonary findings. Reviewed, dictated and finalized at location R. EWATER SUPERVISOR
[2025-04-28 09:27] VITALS: BP 142/76; PULSE 72; RESP 24; TEMP 36.4; O2SAT 98
--- NOTE | 2025-04-28 09:47 | ECG_ITS ---
Test Date: 2025-04-28 09:58:50 Measurements Intervals [place] Rate: 67 P: 79 HI: 153 QRS: -28 QRSD: 124 T: 72 QT: 423 QTc: 447 Interpretive Statements SINUS RHYTHM LEFT BUNDLE BRANCH BLOCK [120+ ms QRS DURATION, 80+ ms Q/S IN V1/V2, 85+ ms R IN I/aVL/V5/V6] Compared to ECG 03/16/2025 09:20:00 Sinus bradycardia no longer present Left-axis deviation no longer present Electronically Signed On 04-28-2025 13:38:13 EXTERIOR INTERIOR SPECIALIST by Darin Osorio M.D.
[2025-04-28 09:51] VITALS: BP 147/74; PULSE 92; RESP 20; O2SAT 95
[2025-04-28 10:01] VITALS: BP 129/76; PULSE 71; RESP 15; O2SAT 95
[2025-04-28 10:17] LABS: Hematocrit 41.1 % (42.0-52.0); Hemoglobin 13.1 g/dL (14.0-18.0); Immature Granulocyte Percent A 0.5 % (0-0.5); Lymphocytes Absolute Auto 1.86 K/mm3 (0.9-3.2); Mean Corpuscular HGB Conc 31.9 g/dl (32-36); Mean Corpuscular Hemoglobin 32.7 pg (26-34); Mean Corpuscular Volume 102.5 fl (80-100); Nucleated Red Blood Cells Absolute Auto 0.000 K/mm3 (0.0-0.012); Nucleated Red Blood Cells Perc 0.0 % (0.0-0.2); Platelet Count Result 186 k/mm3 (150-375); Red Blood Count 4.01 M/mm3 (4.6-6.20); White Blood Count 9.4 K/mm3 (4.5-10.0)
[2025-04-28 10:26] VITALS: BP 110/62; PULSE 70; RESP 20; O2SAT 95
[2025-04-28 10:50] LABS: Alanine Aminotransferase 10 U/L (6-50); Albumin Level 3.9 g/dL (3.5-5.1); Alkaline Phosphatase 103 U/L (38-126); Anion Gap 4 mmol/L (4-12); Aspartate Amino Transferase 17 U/L (17-59); Bilirubin,Total 0.9 mg/dL (0.2-1.3); Blood Urea Nitrogen 23 mg/dL (9-20); Calcium 9.0 mg/dL (8.4-10.2); Carbon Dioxide 28 mmol/L (22-30); Chloride 106 mmol/L (98-107); Estimated CRCL calculation 25 ml/min; Estimated Glomerular Filt Rate 44; Glucose 100 mg/dL (65-110); Potassium 4.8 mmol/L (3.4-5.0); Sodium 138 mmol/L (137-145); Total Protein 7.4 g/dL (6.3-8.2)
--- NOTE | 2025-04-28 11:25 | PCRCNOTE ---
tx was delayed due to order not being announced over [employer]
[2025-04-28] MEDS: IPRATROPIUM 0.5 MG/ALBUTEROL SULFATE 2.5 MG (BASE) AMPUL.NEB 3 ML INHALATION (11:32)
[2025-04-28 11:38] LABS: Add Urine Microscopic? YES; Appearance Urine Clear (Clear); Glucose Urine UA Negative (Negative); Leukocyte Esterase Ur 1+ LEU/UL (Negative); Nitrate Urine Negative (Negative); Non Pathogenic Casts 0-2; Specific Grav Ur 1.019 (1.001-1.035)
--- NOTE | 2025-04-28 11:51 | ED.GENADULT ---
HPI - General Adult General Chief complaint: Shortness of Breath/Dyspnea Stated complaint: SOB Time Seen by Provider: 04/28/25 10:18 History of Present Illness HPI narrative: 89-year-old male presenting with was his daughter from [facility] reporting new shortness of breath. Patient's daughter reports that his facility reported he was struggling to get around more than normal today as he was becoming short of breath. When staff confronted the patient they also state that he became startled which is abnormal for him. Patient is A&Ox0 at baseline with a history of Alzheimer's disease. Related Data Allergies Allergy/AdvReac Type Severity Reaction Status Date / Time No Known Allergies Allergy Verified 04/28/25 09:56 Review of Systems Review of Systems: All systems reviewed & are unremarkable except as noted in HPI and below PMFSH Past Medical History Medical History (Updated 04/28/25 @ 12:06 by LAURA Dougherty) Restlessness and agitation Cognitive communication deficit Other abnormalities of gait and mobility Unsteadiness on feet Dysphagia, unspecified Nutritional anemia, unspecified Vitamin B12 deficiency anemia, unspecified Unspecified dementia, unspecified severity, without behavioral disturbance, psychotic disturbance, mood disturbance, and anxiety Nephrolithiasis (2015) Surgical History Surgical History H/O inguinal hernia repair (2003) left Social History Social History Social History: Code status: POLST signed 05/24/22 reports No CPR/Do Not Attempt Resuscitation (DNAR) with comfort-focused treatment Smoking status: Former smoker Alcohol intake: never Substance use: never Living arrangements: care home Additional living arrangements comments: [facility] since 07/30/22 Occupation/Education: retired 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 HEAD: Normocephalic, atraumatic. EYES: PERRLA and EOMI. ENT: Nares clear, no rhinorrhea or epistaxis. Mucous membranes moist. Oropharynx without tonsillar hypertrophy exudate or other lesions. Bilateral TMs pearly molina non-bulging NECK: Supple. No adenopathy or masses. No carotid bruits or JVD CHEST: Clear to auscultation. No respiratory distress. Auditory wheezing with expiration however no adventitious lung sounds. HEART: Regular rate and rhythm. No murmur heard. Normal peripheral pulses. ABDOMEN: Soft, nontender, nondistended, normal active bowel sounds. EXTREMITIES: Normal range of motion. No edema. SKIN: Warm, dry, no rash. NEURO: Speech clear. Follows commands. CN II-XII intact. Steady gait. No ataxic movements. Strength 5/5 in upper and lower extremities bilaterally. No pronator drift. PSYCH: Normal mood and affect Course Vital Signs Vital signs: Vital Signs Temperature 97.6 F 04/28/25 09:27 Pulse Rate 72 04/28/25 09:27 Respiratory Rate 24 H 04/28/25 09:27 Blood Pressure 142/76 H 04/28/25 09:27 Pulse Oximetry 98 04/28/25 09:27 Oxygen Delivery Room Air 04/28/25 09:27 Temperature 97.6 F 04/28/25 09:27 Pulse Rate 70 04/28/25 10:26 Respiratory Rate 20 04/28/25 10:26 Blood Pressure 110/62 04/28/25 10:26 Pulse Oximetry 95 04/28/25 10:26 Oxygen Delivery Room Air 04/28/25 09:46 Medical Decision Making MDM Narrative Medical decision making narrative: 89-year-old male presenting with was his daughter from [facility] reporting new shortness of breath. Patient's daughter reports that his facility reported he was struggling to get around more than normal today as he was becoming short of breath. When staff confronted the patient they also state that he became startled which is abnormal for him. Patient is A&Ox0 at baseline with a history of Alzheimer's disease. Upon my initial assessment, patient is nontoxic with stable vitals. No adventitious lung sounds were noted on my exam; however, he did have mild audible wheezing when asked to take deep breaths. Administered DuoNeb and had patient walk with a pulse-ox. During ambulation patient maintained oxygen saturation in the 90s and did not exhibit notable shortness of breath or wheezing. Patient had intact neuro exam for the commands he was able to follow. Labs WNL for the patient. Flu/Covid/RSV negative. Patient adamant about wanting to go home. Differential diagnosis and treatment plan were discussed with the patient's daughter. She agrees with discussion and after shared medical decision making agrees with plan of care. The patient is appropriate for outpatient treatment and follow-up. Given reasons to return. Medical Records Medical records reviewed: Yes I reviewed the external patient's medical records. Vital Signs Vital Signs: Vital Signs Temperature 97.6 F 04/28/25 09:27 Pulse Rate 72 04/28/25 09:27 Respiratory Rate 24 H 04/28/25 09:27 Blood Pressure 142/76 H 04/28/25 09:27 Pulse Oximetry 98 04/28/25 09:27 Oxygen Delivery Room Air 04/28/25 09:27 Temperature 97.6 F 04/28/25 09:27 Pulse Rate 70 04/28/25 10:26 Respiratory Rate 20 04/28/25 10:26 Blood Pressure 110/62 04/28/25 10:26 Pulse Oximetry 95 04/28/25 10:26 Oxygen Delivery Room Air 04/28/25 09:46 Lab Data Lab results reviewed: Yes I reviewed the patient's lab results. 04/28/25 09:59 04/28/25 09:59 Labs: Lab Results 04/28/25 04/28/25 Range/Units 09:59 11:22 WBC 9.4 (4.5-10.0) K/mm3 RBC 4.01 L (4.6-6.20) M/mm3 Hgb 13.1 L (14.0-18.0) g/dL Hct 41.1 L (42.0-52.0) % MCV 102.5 H (80-100) fl MCH 32.7 (26-34) pg MCHC 31.9 L (32-36) g/dl RDW 13.0 (11.5-14.5) % Plt Count 186 (150-375) k/mm3 MPV 9.8 (7.4-10.4) fl Immature Gran % (Auto) 0.5 (0-0.5) % Neut % (Auto) 69.7 (45.5-73.1) % Lymph % (Auto) 19.8 (18.3-44.2) % [place] % (Auto) 7.2 (2.6-8.5) % Eos % (Auto) 2.6 (0-4.4) % Baso % (Auto) 0.2 (0.2-1.2) % Lymph # (Auto) 1.86 (0.9-3.2) K/mm3 [place] # (Auto) 0.7 H (0.1-0.6) K/mm3 Eos # (Auto) 0.2 (0-0.3) K/mm3 Baso # (Auto) 0.0 (0.0-0.1) K/mm3 Abs Immat Gran (auto) 0.05 H (0.00-0.031) K/mm3 Absolute Neuts (auto) 6.5 (1.3-6.7) K/mm3 Absolute Nucleated RBC 0.000 (0.0-0.012) K/mm3 Nucleated RBC % 0.0 (0.0-0.2) % Sodium 138 (137-145) mmol/L Potassium 4.8 (3.4-5.0) mmol/L Chloride 106 (98-107) mmol/L Carbon Dioxide 28 (22-30) mmol/L Anion Gap 4 (4-12) mmol/L BUN 23 H (9-20) mg/dL Creatinine 1.50 H (0.7-1.3) mg/dL Estim Creat Clear Calc 25 ml/min Estimated GFR 44 L (59 - ) Glucose 100 (65-110) mg/dL Lactic Acid 1.6 (0.7-2.0) mmol/L Calcium 9.0 (8.4-10.2) mg/dL Total Bilirubin 0.9 (0.2-1.3) mg/dL AST 17 (17-59) U/L ALT 10 (6-50) U/L Alkaline Phosphatase 103 (38-126) U/L Total Protein 7.4 (6.3-8.2) g/dL Albumin 3.9 (3.5-5.1) g/dL Urine Color Yellow (Yellow) Urine Appearance Clear (Clear) Urine pH 6.5 (5.0-9.0) Ur Specific [place] 1.019 (1.001-1.035) Urine Protein Trace (Negative) mg/dL Urine Glucose (UA) Negative (Negative) mg/dL Urine Ketones Trace H (Negative) mg/dL Ur Blood (Man) Negative (Negative) Urine Nitrate Negative (Negative) Urine Bilirubin Negative (Negative) Urine Urobilinogen 1.0 (<2.0) mg/dL Leukocyte Esterase Rfl 1+ H (Negative) VAHID/UL Urine RBC 0-2 (0-2) /hpf Urine WBC 6-10 H (0-3) /hpf Ur Squamous Epith Cells None seen (Few) /hpf Urine Bacteria Rare /hpf Urine Casts 0-2 Influenza A (RT-PCR) Negative (Negative) Influenza B (RT-PCR) Negative (Negative) RSV (RT-PCR) Negative (Negative) SARS-CoV-2 RNA (RT-PCR) Negative (Negative) Imaging Data Attestation: I personally reviewed and interpreted this imaging study as follows: Radiologist's impression: ITS Impressions Chest X-Ray 04/28/25 10:25 IMPRESSION: 1. No acute cardiopulmonary findings. ECG Data EKG #1: ECG completion date: 04/28/25 ECG completion time: 09:58 EKG Interpretation: normal rate, sinus rhythm and no acute changes Discharge Plan Discharge Clinical Impression: Exertional shortness of breath Patient Disposition: Home Condition: Stable Instructions: COPD (Chronic Obstructive Pulmonary Disease) (ED), Shortness of Breath (ED) Additional Instructions: Return to the emergency department if you experience fever, chest pain, shortness of breath, abdominal pain with nausea and vomiting, weakness, numbness/tingling, or any other symptoms that are concerning to you. Follow up with primary care doctor. Patient Language: Divehi Prescriptions: No Action trazodone 50 mg tablet 25 mg PO QHS PRN (Reason: insomnia) Qty: 90 1RF cyanocobalamin (vitamin B-12) [Vitamin B-12] 1,000 mcg Tablet 1,000 mcg PO QAM Qty: 30 0RF acetaminophen [Mapap (acetaminophen)] 325 mg Tablet 650 mg PO Q6H PRN (Reason: Mild Pain (1-3) Or Fever) Qty: 30 0RF Claritin 10 mg tablet,chewable 10 mg PO DAILY Qty: 90 1RF Follow-up/Referrals: Kendell Chung MD [Primary Care Provider, Family Practice]
[2025-04-28 12:09] LABS: Influenza A QL RT-PCR Negative (Negative); Influenza B QL RT-PCR Negative (Negative); RSV RNA, RT-PCR Negative (Negative); SARS-CoV-2 RNA PCR Negative (Negative)
== END 2025-04-28 12:13 ==
PROVIDERS: Emergency Medicine; PCP Family Medicine Adolescent Medicine
DX: R06.02 Shortness of breath (principal); Z20.822 Contact with and (suspected) exposure to COVID-19; G30.9 Alzheimer's disease, unspecified; F02.80 Dementia in other diseases classified elsewhere, unspecified severity, without behavioral disturbance, psychotic disturbance, mood disturbance, and anxiety; D51.9 Vitamin B12 deficiency anemia, unspecified; Z66 Do not resuscitate; Z87.442 Personal history of urinary calculi; Z87.891 Personal history of nicotine dependence; I44.7 Left bundle-branch block, unspecified; R82.998 Other abnormal findings in urine
CPT/HCPCS: 36415; 71046; 80053; 81001; 83605; 85025; 87086; 87637; 93005; 94640; 99284

== ENCOUNTER 2025-05-01 17:57 | Emergency (ER) | payer MEDICARE, SELFPAY ==
--- NOTE | ~2025-05-01 | XR_ITS ---
EXAMINATION: XR chest 1V portable COMPARISON: No comparisons available. HISTORY: sob FINDINGS: The lungs are clear, no effusion. No pneumothorax. Heart is normal size. Mediastinal and hilar contours are within normal limits. Bony thorax no acute abnormality. Miscellaneous: None Impression: No acute cardiopulmonary abnormality. Reviewed, dictated and finalized at location P. CAL CODING MANAGER Impression: No acute cardiopulmonary abnormality.
--- NOTE | 2025-05-01 18:01 | ECG_ITS ---
Test Date: 2025-05-01 18:34:45 Measurements Intervals Valentine Rate: 88 P: 75 [place]: 148 QRS: 6 QRSD: 131 T: 77 QT: 406 QTc: 493 Interpretive Statements POOR QUALITY ECG BECAUSE OF BASELINE ARTIFACT SINUS RHYTHM LEFT BUNDLE BRANCH BLOCK [120+ ms QRS DURATION, 80+ ms Q/S IN V1/V2, 85+ ms R IN I/aVL/V5/V6] ABNORMAL ECG Compared to ECG 04/28/2025 09:58:50 No significant changes Electronically Signed On 05-02-2025 09:15:53 SIGNAL MANAGER by Abisai Tubbs M.D.
[2025-05-01 18:08] VITALS: BP 140/87; PULSE 101; RESP 17; TEMP 36.7; O2SAT 92
--- NOTE | 2025-05-01 19:19 | ED_ITS ---
HPI - SOB/Dyspnea General Stated Complaint: SOB <Gomez Garcia MD - Last Filed: 05/01/25 19:51> Time Seen by Provider: 05/01/25 18:01 <Gomez Garcia MD - Last Filed: 05/01/25 19:51> Source: EMS <Gomez Garcia MD - Last Filed: 05/01/25 19:51> Mode of arrival: EMS <Gomez Garcia MD - Last Filed: 05/01/25 19:51> Limitations: dementia <Gomez Garcia MD - Last Filed: 05/01/25 19:51> History of Present Illness HPI Narrative: 89-year-old a history of dementia , COPD from nursing with the complaints of shortness of breath. As per the EMS patient was not tripoding at the senior care he was given 2 nebulizer treatments was placed on Oxygen and was brought to ER ,Upon arrival pt states his finger are cold and he feels fine and does want any thing to be done. <Gomez Garcia MD - Last Filed: 05/01/25 19:51> MD elicited complaint: shortness of breath <Gomez Garcia MD - Last Filed: 05/01/25 19:51> Pertinent past history: COPD <Gomez Garcia MD - Last Filed: 05/01/25 19:51> Onset (ago): hour(s) (1) <Gomez Garcia MD - Last Filed: 05/01/25 19:51> Timing: constant <Gomez Garcia MD - Last Filed: 05/01/25 19:51> Severity: moderate <Gomez Garcia MD - Last Filed: 05/01/25 19:51> Exacerbating factors: nothing <Gomez Garcia MD - Last Filed: 05/01/25 19:51> Relieving factors: oxygen and bronchodilators <Gomez Garcia MD - Last Filed: 05/01/25 19:51> Known history of: COPD <Gomez Garcia MD - Last Filed: 05/01/25 19:51> Treatment prior to arrival: oxygen and bronchodilator <Gomez Garcia MD - Last Filed: 05/01/25 19:51> Related Data Allergies/Adverse Reactions: Allergies Allergy/AdvReac Type Severity Reaction Status Date / Time No Known Allergies Allergy Verified 04/28/25 09:56 <Gomez Garcia MD - Last Filed: 05/01/25 19:51> [facility] Past Medical History Medical History: Medical History Restlessness and agitation Cognitive communication deficit Other abnormalities of gait and mobility Unsteadiness on feet Dysphagia, unspecified Nutritional anemia, unspecified Vitamin B12 deficiency anemia, unspecified Unspecified dementia, unspecified severity, without behavioral disturbance, psychotic disturbance, mood disturbance, and anxiety Nephrolithiasis (2015) <Gomez Garcia MD - Last Filed: 05/01/25 19:51> Surgical History Surgical History: Surgical History H/O inguinal hernia repair (2003) left <Gomez Garcia MD - Last Filed: 05/01/25 19:51> Social History Social History: Social History Social History: Code status: POLST signed 05/24/22 reports No CPR/Do Not Attempt Resuscitation (DNAR) with comfort-focused treatment Smoking status: Former smoker Alcohol intake: never Substance use: never Living arrangements: senior care Additional living arrangements comments: [facility] since 07/30/22 Occupation/Education: retired 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 EYES: PERRLA and EOMI. ENT: Nares clear, no rhinorrhea or epistaxis. Mucous membranes moist. NECK: Supple. CHEST: decreased air entry HEART: Regular rate and rhythm. No murmur heard. Normal peripheral pulses. ABDOMEN: Soft, nontender, nondistended, normal active bowel sounds. EXTREMITIES: Normal range of motion. No edema. SKIN: Warm, dry, no rash. NEURO: No focal deficits. Alert and oriented x1 PSYCH: Normal mood and affect. <Gomez Garcia MD - Last Filed: 05/01/25 19:51> Course Course Emergency Course: pt is sitting on the bed with oxygen and his daughter is bed side calming him down , will not leave the oxygen on. <Gomez Garcia MD - Last Filed: 05/01/25 19:51> Vital Signs Vital signs: Vital Signs Temperature 98.1 F 05/01/25 18:08 Pulse Rate 101 H 05/01/25 18:08 Respiratory Rate 17 05/01/25 18:08 Blood Pressure 140/87 05/01/25 18:08 Pulse Oximetry 92 05/01/25 18:08 Oxygen Delivery Simple Face Mask 05/01/25 18:08 Oxygen Flow Rate 10 05/01/25 18:08 Temperature 98.1 F 05/01/25 18:08 Pulse Rate 101 H 05/01/25 18:08 Respiratory Rate 17 05/01/25 18:08 Blood Pressure 140/87 05/01/25 18:08 Pulse Oximetry 92 05/01/25 18:08 Oxygen Delivery Simple Face Mask 05/01/25 18:08 Oxygen Flow Rate 10 05/01/25 18:08 <Gomez Garcia MD - Last Filed: 05/01/25 19:51> Vital Signs Temperature 98.1 F 05/01/25 18:08 Pulse Rate 101 H 05/01/25 18:08 Respiratory Rate 17 05/01/25 18:08 Blood Pressure 140/87 05/01/25 18:08 Pulse Oximetry 92 05/01/25 18:08 Oxygen Delivery Simple Face Mask 05/01/25 18:08 Oxygen Flow Rate 10 05/01/25 18:08 Temperature 98.1 F 05/01/25 18:08 Pulse Rate 101 H 05/01/25 18:08 Respiratory Rate 17 05/01/25 18:08 Blood Pressure 140/87 05/01/25 18:08 Pulse Oximetry 92 05/01/25 18:08 Oxygen Delivery Simple Face Mask 05/01/25 18:08 Oxygen Flow Rate 10 05/01/25 18:08 <Maura Steel MD - Last Filed: 05/01/25 20:36> MDM - SOB/Dyspnea MDM Narrative Medical decision making narrative: Patient presented here with shortness of breath per family he does also get quite anxious and agitated and this worsens his shortness of breath. Breathing treatments initiated here and on re-evaluation, he is now breathing comfortably, in no distress. Family greasy is looking much better and patient like to go home and patient's family would also like to be discharged. Vital signs are normal, oxygen 94% on room air at time of discharge. Patient is on comfort care, would like to trial prednisone for COPD exacerbation, and possibly anxiety related, I feel is very reasonable for his goals of care, prescription for Ativan provided. <Maura Steel MD - Last Filed: 05/01/25 20:36> Lab Data Result diagrams: 05/01/25 19:34 05/01/25 19:34 <Gomez Garcia MD - Last Filed: 05/01/25 19:51> Labs: Lab Results 05/01/25 Range/Units 19:34 WBC 10.5 H (4.5-10.0) K/mm3 RBC 3.66 L (4.6-6.20) M/mm3 Hgb 12.0 L (14.0-18.0) g/dL Hct 38.1 L (42.0-52.0) % MCV 104.1 H (80-100) fl MCH 32.8 (26-34) pg MCHC 31.5 L (32-36) g/dl RDW 13.2 (11.5-14.5) % Plt Count 180 (150-375) k/mm3 MPV 9.6 (7.4-10.4) fl Immature Gran % (Auto) 0.6 H (0-0.5) % Neut % (Auto) 81.7 H (45.5-73.1) % Lymph % (Auto) 14.4 L (18.3-44.2) % [place] % (Auto) 2.0 L (2.6-8.5) % Eos % (Auto) 1.1 (0-4.4) % Baso % (Auto) 0.2 (0.2-1.2) % Lymph # (Auto) 1.52 (0.9-3.2) K/mm3 [place] # (Auto) 0.2 (0.1-0.6) K/mm3 Eos # (Auto) 0.1 (0-0.3) K/mm3 Baso # (Auto) 0.0 (0.0-0.1) K/mm3 Abs Immat Gran (auto) 0.06 H (0.00-0.031) K/mm3 Absolute Neuts (auto) 8.6 H (1.3-6.7) K/mm3 Absolute Nucleated RBC 0.000 (0.0-0.012) K/mm3 Nucleated RBC % 0.0 (0.0-0.2) % PT 14.9 H (11.1-14.7) Seconds INR 1.2 Sodium 140 (137-145) mmol/L Potassium 4.0 (3.4-5.0) mmol/L Chloride 105 (98-107) mmol/L Carbon Dioxide 28 (22-30) mmol/L Anion Gap 7 (4-12) mmol/L BUN 24 H (9-20) mg/dL Creatinine 1.33 H (0.7-1.3) mg/dL Estim Creat Clear Calc 27 ml/min Estimated GFR 51 L (59 - ) Glucose 129 H (65-110) mg/dL Calcium 8.7 (8.4-10.2) mg/dL Total Bilirubin 0.6 (0.2-1.3) mg/dL AST 19 (17-59) U/L ALT 12 (6-50) U/L Alkaline Phosphatase 104 (38-126) U/L Troponin I < 0.012 (0.000-0.034) ng/mL NT-Pro-B Natriuret Pep 2020 H (19.9-100) pg/mL Total Protein 7.2 (6.3-8.2) g/dL Albumin 3.6 (3.5-5.1) g/dL <Gomez Garcia MD - Last Filed: 05/01/25 19:51> Lab Results 05/01/25 Range/Units 19:34 WBC 10.5 H (4.5-10.0) K/mm3 RBC 3.66 L (4.6-6.20) M/mm3 Hgb 12.0 L (14.0-18.0) g/dL Hct 38.1 L (42.0-52.0) % MCV 104.1 H (80-100) fl MCH 32.8 (26-34) pg MCHC 31.5 L (32-36) g/dl RDW 13.2 (11.5-14.5) % Plt Count 180 (150-375) k/mm3 MPV 9.6 (7.4-10.4) fl Immature Gran % (Auto) 0.6 H (0-0.5) % Neut % (Auto) 81.7 H (45.5-73.1) % Lymph % (Auto) 14.4 L (18.3-44.2) % [place] % (Auto) 2.0 L (2.6-8.5) % Eos % (Auto) 1.1 (0-4.4) % Baso % (Auto) 0.2 (0.2-1.2) % Lymph # (Auto) 1.52 (0.9-3.2) K/mm3 [place] # (Auto) 0.2 (0.1-0.6) K/mm3 Eos # (Auto) 0.1 (0-0.3) K/mm3 Baso # (Auto) 0.0 (0.0-0.1) K/mm3 Abs Immat Gran (auto) 0.06 H (0.00-0.031) K/mm3 Absolute Neuts (auto) 8.6 H (1.3-6.7) K/mm3 Absolute Nucleated RBC 0.000 (0.0-0.012) K/mm3 Nucleated RBC % 0.0 (0.0-0.2) % PT 14.9 H (11.1-14.7) Seconds INR 1.2 Sodium 140 (137-145) mmol/L Potassium 4.0 (3.4-5.0) mmol/L Chloride 105 (98-107) mmol/L Carbon Dioxide 28 (22-30) mmol/L Anion Gap 7 (4-12) mmol/L BUN 24 H (9-20) mg/dL Creatinine 1.33 H (0.7-1.3) mg/dL Estim Creat Clear Calc 27 ml/min Estimated GFR 51 L (59 - ) Glucose 129 H (65-110) mg/dL Calcium 8.7 (8.4-10.2) mg/dL Total Bilirubin 0.6 (0.2-1.3) mg/dL AST 19 (17-59) U/L ALT 12 (6-50) U/L Alkaline Phosphatase 104 (38-126) U/L Troponin I < 0.012 (0.000-0.034) ng/mL NT-Pro-B Natriuret Pep 2020 H (19.9-100) pg/mL Total Protein 7.2 (6.3-8.2) g/dL Albumin 3.6 (3.5-5.1) g/dL <Maura Steel MD - Last Filed: 05/01/25 20:36> Discharge Plan Discharge Clinical Impression: Chronic obstructive pulmonary disease, unspecified Qualifiers: COPD type: COPD with acute exacerbation Qualified Code(s): J44.1 - Chronic obstructive pulmonary disease with (acute) exacerbation <Gomez Garcia MD - Last Filed: 05/01/25 19:51> Patient Disposition: Home <Gomez Garcia MD - Last Filed: 05/01/25 19:51> Condition: Stable <Gomez Garcia MD - Last Filed: 05/01/25 19:51> Instructions: COPD (Chronic Obstructive Pulmonary Disease) (ED) <Gomez Garcia MD - Last Filed: 05/01/25 19:51> Additional Instructions: Please follow up with your doctor; you can always return for any further issues. You can try the medications as prescribed. <Gomez Garcia MD - Last Filed: 05/01/25 19:51> Patient Language: Somali <Gomez Garcia MD - Last Filed: 05/01/25 19:51> Prescriptions: New prednisone 20 mg tablet 40 mg PO DAILY 5 Days Qty: 10 0RF lorazepam [Ativan] 0.5 mg tablet 0.5 mg PO TID PRN (Reason: anxiety) Qty: 10 0RF No Action trazodone 50 mg tablet 25 mg PO QHS PRN (Reason: insomnia) Qty: 90 1RF cyanocobalamin (vitamin B-12) [Vitamin B-12] 1,000 mcg Tablet 1,000 mcg PO QAM Qty: 30 0RF acetaminophen [Mapap (acetaminophen)] 325 mg Tablet 650 mg PO Q6H PRN (Reason: Mild Pain (1-3) Or Fever) Qty: 30 0RF Claritin 10 mg tablet,chewable 10 mg PO DAILY Qty: 90 1RF ipratropium-albuterol 0.5 mg-3 mg(2.5 mg base)/3 mL solution for nebulization 3 ml inhalation QID Qty: 360 5RF Rx Instructions: Give by nebulizer <Gomez Garcia MD - Last Filed: 05/01/25 19:51> Follow-up/Referrals: Kendell Chung MD [Primary Care Provider, Family Practice] <Gomez Garcia MD - Last Filed: 05/01/25 19:51>
--- NOTE | 2025-05-01 19:28 | PC.NURSE ---
Discussed with both provider and furnace charger that patient has DNR comfort measures POLST form, and that it may be a good time to discuss treatment options with family.
[2025-05-01 19:44] LABS: Hematocrit 38.1 % (42.0-52.0); Hemoglobin 12.0 g/dL (14.0-18.0); Immature Granulocyte Percent A 0.6 % (0-0.5); Lymphocytes Absolute Auto 1.52 K/mm3 (0.9-3.2); Mean Corpuscular HGB Conc 31.5 g/dl (32-36); Mean Corpuscular Hemoglobin 32.8 pg (26-34); Mean Corpuscular Volume 104.1 fl (80-100); Nucleated Red Blood Cells Absolute Auto 0.000 K/mm3 (0.0-0.012); Nucleated Red Blood Cells Perc 0.0 % (0.0-0.2); Platelet Count Result 180 k/mm3 (150-375); Red Blood Count 3.66 M/mm3 (4.6-6.20); White Blood Count 10.5 K/mm3 (4.5-10.0)
[2025-05-01 19:56] LABS: Alanine Aminotransferase 12 U/L (6-50); Albumin Level 3.6 g/dL (3.5-5.1); Alkaline Phosphatase 104 U/L (38-126); Anion Gap 7 mmol/L (4-12); Aspartate Amino Transferase 19 U/L (17-59); Bilirubin,Total 0.6 mg/dL (0.2-1.3); Blood Urea Nitrogen 24 mg/dL (9-20); Calcium 8.7 mg/dL (8.4-10.2); Carbon Dioxide 28 mmol/L (22-30); Chloride 105 mmol/L (98-107); Estimated CRCL calculation 27 ml/min; Estimated Glomerular Filt Rate 51; Glucose 129 mg/dL (65-110); Potassium 4.0 mmol/L (3.4-5.0); Sodium 140 mmol/L (137-145); Total Protein 7.2 g/dL (6.3-8.2)
[2025-05-01 19:57] LABS: INR 1.2; Prothrombin Time 14.9 Seconds (11.1-14.7)
[2025-05-01 20:07] LABS: NT Pro B Type Natriuretic Pept 2020 pg/mL (19.9-100); Troponin I < 0.012 ng/mL (0.000-0.034)
--- OUTSIDE RECORDS SUMMARY | 2025-05-01 20:28 | XMS_ITS | Clinical Summary ---
Author Organization [facility] Address [facility] [place] [address] Care Team Providers Care Vb Net Programmer Name Role Phone Kendell Chung MD Primary Care Provider [phone] Allergies No known active allergies Medications albuterol sulfate HFA 108 (90 Base) MCG/ACT inhaler Inhale 2 puffs into the lungs every 6 (six) hours as needed for Wheezing. 6.7 g 04/28/2025 Active Encounters Date Type Department Care Team Description 04/28/2025 7:23 PM TSO - 04/28/2025 7:39 PM TSO Emergency [facility] [place] [address] Corey Cole PA Arm Injury (Right arm swelling s/p blood draw) Discharge Disposition: Home or Self Care (Routine Discharge) 04/28/2025 Travel from Last 3 Months Social History Tobacco Use Types Packs/Day Years Used Date Smoking Tobacco: Never Assessed Sex and Gender Information Value Date Recorded Sex Assigned at Male 04/28/2025 7:21 PM TSO Legal Sex Male 6:59 PM TSO Gender Identity Not on file Sexual Orientation Not on file Last Filed Vital Signs Vital Sign Reading Time Taken Comments Blood Pressure 132/80 04/28/2025 7:13 PM TSO Pulse 84 04/28/2025 7:13 PM TSO Temperature 36.8 C (98.2 F) 04/28/2025 7:13 PM TSO Respiratory Rate 22 04/28/2025 7:13 PM TSO Oxygen Saturation 98% 04/28/2025 7:13 PM TSO Inhaled Oxygen Concentration - - Weight 55.3 kg (121 lb 14.6 oz) 04/28/2025 7:13 PM TSO Height 180.3 cm (5' 11) 04/28/2025 7:13 PM TSO Body Mass Index 17 04/28/2025 7:13 PM TSO Plan of Treatment Health Maintenance Due Date Last Done Comments DTaP, Tdap and Td Vaccines ( 1 - Tdap) 1955 Pneumococcal Vaccine: 50+ Ye ars (1 of 1 - PCV) 1986 Zoster Vaccines (1 of 2) 1986 Annual Medicare Wellness Visit 2001 RSV Immunization or 60+ Years (1 - 1-dose 75+ series) 2011 COVID-19 Vaccine (1 - 2024-2 6 season) 2025 Influenza Adult (#1) 2025 Hepatitis A Vaccines Aged Out No long er eligible based on patient's age to complete this topic Meningococcal B Vaccine Aged Out No l onger eligible based on patient's age to complete this topic Meningococcal Vaccine Aged Out No anabel jacquelin eligible based on patient's age to complete this topic RSV Immunizations Under 20 Months Aged Out No longer eligible based on patient's age to complete this topic Insurance [facility] MEDICARE Care Teams Vb Net Programmer Relationship Specialty Start Date End Date Kendell Chung MD [phone] [address] PCP - General FAMILY PRACTICE 04/28/25
[2025-05-01 21:22] VITALS: BP 132/77; PULSE 76; RESP 20; TEMP 36.7; O2SAT 100
== END 2025-05-01 21:23 ==
PROVIDERS: Family Medicine; Emergency Provider Emergency Medicine; PCP Family Medicine Adolescent Medicine
DX: J44.1 Chronic obstructive pulmonary disease with (acute) exacerbation (principal); F03.90 Unspecified dementia, unspecified severity, without behavioral disturbance, psychotic disturbance, mood disturbance, and anxiety; D51.9 Vitamin B12 deficiency anemia, unspecified; Z87.442 Personal history of urinary calculi; Z66 Do not resuscitate; I44.7 Left bundle-branch block, unspecified
CPT/HCPCS: 36415; 36600; 71045; 80053; 83880; 84484; 85025; 85610; 93005; 99284

== ENCOUNTER 2025-05-05 16:18 | Emergency (ER) | payer MEDICARE, SELFPAY ==
--- NOTE | ~2025-05-05 | XR_ITS ---
EXAMINATION: XR chest 1V portable DATE: 05/05/2025 16:43 INDICATION: Dyspnea on exertion TECHNIQUE: frontal view of the chest was obtained. COMPARISON: Chest radiograph dated 05/01/2025 FINDINGS: Hyperexpansion of the lungs suggestive but not diagnostic of COPD. Calcified nodule at the right lung base consistent with old granulomatous disease. Additional thin triangular calcification projecting along the anterior right fifth rib potentially calcified pleural plaque. Mild increased initial pattern at the bilateral lung bases which could represent minimal pulmonary edema. No other airspace opacities, pleural effusion or pneumothorax. The cardiomediastinal silhouette is normal. Mild thoracolumbar dextrocurvature with moderate spondylosis. IMPRESSION: 1. Mild increased interstitial pattern at the bilateral lung bases most consistent with minimal pulmonary edema with differential including less likely atelectasis or pneumonia. 2. Hyperexpansion lungs suggestive but not diagnostic of COPD. Reviewed, dictated and finalized at location [facility] IMPRESSION: 1. Mild increased interstitial pattern at the bilateral lung bases most consist ent with minimal pulmonary edema with differential including less likely atelec tasis or pneumonia. 2. Hyperexpansion lungs suggestive but not diagnostic of COPD.
[2025-05-05 16:19] VITALS: BP 134/73; PULSE 91; RESP 20; TEMP 37.2; O2SAT 99
[2025-05-05 16:29] VITALS: PULSE 101
[2025-05-05 16:32] VITALS: O2SAT 97
--- NOTE | 2025-05-05 16:34 | PC.NURSE ---
Patient confused-A/O x2 refusing IV/lab draw
--- NOTE | 2025-05-05 16:36 | PC.NURSE ---
Akua Barron at bedside-paperwork as temporary guardian present
[2025-05-05 17:00] VITALS: BP 95/68; PULSE 89; RESP 26; O2SAT 100
--- OUTSIDE RECORDS SUMMARY | 2025-05-05 17:15 | XMS_ITS | Clinical Summary ---
Author Organization [facility] Address [facility] [place] [address] Care Team Providers Care [employer] Science Teacher Name Role Phone Kendell Chung MD Primary Care Provider [phone] Allergies No known active allergies Medications albuterol sulfate HFA 108 (90 Base) MCG/ACT inhaler Inhale 2 puffs into the lungs every 6 (six) hours as needed for Wheezing. 6.7 g 04/28/2025 Active Encounters Date Type Department Care Team Description 04/28/2025 7:23 PM DIGITAL MEDIA SALES CONSULTANT - 04/28/2025 7:39 PM DIGITAL MEDIA SALES CONSULTANT Emergency [facility] Emergency [place] [address] Corey Cole PA Arm Injury (Right arm swelling s/p blood draw) Discharge Disposition: Home or Self Care (Routine Discharge) 04/28/2025 Travel from Last 3 Months Social History Tobacco Use Types Packs/Day Years Used Date Smoking Tobacco: Never Assessed Sex and Gender Information Value Date Recorded Sex Assigned at Male 04/28/2025 7:21 PM DIGITAL MEDIA SALES CONSULTANT Legal Sex Male 6:59 PM DIGITAL MEDIA SALES CONSULTANT Gender Identity Not on file Sexual Orientation Not on file Last Filed Vital Signs Vital Sign Reading Time Taken Comments Blood Pressure 132/80 04/28/2025 7:13 PM DIGITAL MEDIA SALES CONSULTANT Pulse 84 04/28/2025 7:13 PM DIGITAL MEDIA SALES CONSULTANT Temperature 36.8 C (98.2 F) 04/28/2025 7:13 PM DIGITAL MEDIA SALES CONSULTANT Respiratory Rate 22 04/28/2025 7:13 PM DIGITAL MEDIA SALES CONSULTANT Oxygen Saturation 98% 04/28/2025 7:13 PM DIGITAL MEDIA SALES CONSULTANT Inhaled Oxygen Concentration - - Weight 55.3 kg (121 lb 14.6 oz) 04/28/2025 7:13 PM DIGITAL MEDIA SALES CONSULTANT Height 180.3 cm (5' 11) 04/28/2025 7:13 PM DIGITAL MEDIA SALES CONSULTANT Body Mass Index 17 04/28/2025 7:13 PM DIGITAL MEDIA SALES CONSULTANT Plan of Treatment Health Maintenance Due Date [...] patient's age to complete this topic Insurance [facility] MEDICARE Care Teams [employer] Science Teacher Relationship Specialty Start Date End Date Kendell Chung MD [address] [address] PCP - General FAMILY PRACTICE 04/28/25
--- NOTE | 2025-05-05 17:50 | ED_ITS ---
HPI - SOB/Dyspnea General Chief Complaint: Shortness of Breath/Dyspnea Stated Complaint: low O2 sats with exertion Time Seen by Provider: 05/05/25 16:32 History of Present Illness HPI Narrative: Patient with COPD presents here from senior care due to concern that he has oxygen drops when he is exerting himself. He does not want to be here. He is denying any complaints. Related Data Allergies Allergy/AdvReac Type Severity Reaction Status Date / Time No Known Allergies Allergy Verified 04/28/25 09:56 Review of Systems Review of Systems: All systems reviewed & are unremarkable except as noted in HPI and below PMFSH Past Medical History Medical History Restlessness and agitation Cognitive communication deficit Other abnormalities of gait and mobility Unsteadiness on feet Dysphagia, unspecified Nutritional anemia, unspecified Vitamin B12 deficiency anemia, unspecified Unspecified dementia, unspecified severity, without behavioral disturbance, psychotic disturbance, mood disturbance, and anxiety Nephrolithiasis (2015) Surgical History Surgical History H/O inguinal hernia repair (2003) left Social History Social History Social History: Code status: POLST signed 05/24/22 reports No CPR/Do Not Attempt Resuscitation (DNAR) with comfort-focused treatment Smoking status: Former smoker Alcohol intake: never Substance use: never Living arrangements: senior care Additional living arrangements comments: [facility] since 07/30/22 Occupation/Education: retired 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 EYES: EOMI, conjunctiva normal ENT: Hearing grossly intact LUNGS: Nonlabored breathing. Clear to auscultation bilaterally. HEART: [Regular rate and rhythm] ABD: [Soft], [nontender to palpation] EXT: Normal range of motion SKIN: [No rashes or lesions.] NEURO: [Alert. No gross focal sensory or strength deficits.] PSYCH: Normal affect Course Vital Signs Vital signs: Vital Signs Temperature 98.9 F 05/05/25 16:19 Pulse Rate 91 05/05/25 16:19 Respiratory Rate 20 05/05/25 16:19 Blood Pressure 134/73 05/05/25 16:19 Pulse Oximetry 99 05/05/25 16:19 Oxygen Delivery Room Air 05/05/25 16:19 Temperature 98.9 F 05/05/25 16:19 Pulse Rate 89 05/05/25 17:00 Respiratory Rate 26 H 05/05/25 17:00 Blood Pressure 95/68 L 05/05/25 17:00 Pulse Oximetry 100 05/05/25 17:00 Oxygen Delivery Room Air 05/05/25 16:32 MDM MDM Narrative Medical decision making narrative: 89-year-old male sent here from senior care due to concern that his oxygen drops when he is exerting himself. He is denying any complaints right now, he is resting very comfortably here, 99% on room air. Chest x-ray essentially unremarkable though possibly some atelectasis, very unlikely pneumonia without cough or fevers. alf staff asking if I can try to arrange for oxygen for him. I did explain that I had no reason to prescribe oxygen with his oxygen saturation at 100% here, but he can follow-up with his primary care doctor for further workup or evaluation is needed, and regardless I am unable to prescribe oxygen, he can always return to the ER for any further issues. Differential Diagnosis Differential Diagnosis: COPD, CHF, pneumonia, etc Imaging Data Radiologist's impression: ITS Impressions Chest X-Ray 05/05/25 16:49 IMPRESSION: 1. Mild increased interstitial pattern at the bilateral lung bases most consistent with minimal pulmonary edema with differential including less likely atelectasis or pneumonia. 2. Hyperexpansion lungs suggestive but not diagnostic of COPD. Discharge Plan Discharge Clinical Impression: Dyspnea on exertion Patient Disposition: Home Condition: Stable Instructions: Dyspnea (ED) Additional Instructions: Please follow-up with your doctor. Continue with the treatments at home and you can return to the ER for any worsening symptoms. Patient Language: Turkmen Prescriptions: No Action trazodone 50 mg tablet 25 mg PO QHS PRN (Reason: insomnia) Qty: 90 1RF cyanocobalamin (vitamin B-12) [Vitamin B-12] 1,000 mcg Tablet 1,000 mcg PO QAM Qty: 30 0RF acetaminophen [Mapap (acetaminophen)] 325 mg Tablet 650 mg PO Q6H PRN (Reason: Mild Pain (1-3) Or Fever) Qty: 30 0RF prednisone 20 mg tablet 40 mg PO DAILY 5 Days Qty: 10 0RF lorazepam [Ativan] 0.5 mg tablet 0.5 mg PO TID PRN (Reason: anxiety) Qty: 10 0RF Claritin 10 mg tablet,chewable 10 mg PO DAILY Qty: 90 1RF ipratropium-albuterol 0.5 mg-3 mg(2.5 mg base)/3 mL solution for nebulization 3 ml inhalation QID Qty: 360 5RF Rx Instructions: Give by nebulizer Follow-up/Referrals: Kendell Chung MD [Primary Care Provider, Family Practice]
== END 2025-05-05 17:07 ==
PROVIDERS: Emergency Provider Emergency Medicine; PCP Family Medicine Adolescent Medicine
DX: R06.00 Dyspnea, unspecified (principal); J44.9 Chronic obstructive pulmonary disease, unspecified; F03.90 Unspecified dementia, unspecified severity, without behavioral disturbance, psychotic disturbance, mood disturbance, and anxiety; D51.9 Vitamin B12 deficiency anemia, unspecified; Z66 Do not resuscitate; Z87.891 Personal history of nicotine dependence
CPT/HCPCS: 71045; 99284

== ENCOUNTER 2025-05-10 17:27 | Inpatient (IN) | payer MEDICARE, SELFPAY ==
--- NOTE | ~2025-05-10 | XR_ITS ---
EXAMINATION: XR chest 1V portable DATE: 05/10/2025 18:49 INDICATION: Shortness of breath. TECHNIQUE: A single frontal view of the chest was obtained. COMPARISON: Chest x-ray 05/05/2025. FINDINGS: Heart size is normal. Atherosclerotic aorta. Emphysematous lungs are noted. No definite acute pulmonary lesions. IMPRESSION: 1. No acute findings in the portable chest x-ray. Emphysematous lungs similar to prior chest x-ray findings. Reviewed, dictated and finalized at location T. IANCE ASSEMBLER IMPRESSION: 1. No acute findings in the portable chest x-ray. Emphysematous lungs similar t o prior chest x-ray findings.
--- NOTE | ~2025-05-10 | CT_ITS ---
EXAMINATION:CT diagnostic chest wo con DATE: 05/11/2025 10:16 INDICATION: Respiratory failure TECHNIQUE: Computed tomography (CT) of the chest was performed without intravenous contrast. The dose-length product (DLP) was 152.90 mGy-cm. COMPARISON: None. FINDINGS: Moderately severe centrilobular emphysematous changes present, and mild to moderate diffuse fibrotic appearing changes, with 1.5 x 0.6 cm slightly spiculated nodular focus in the right lower lobe image 82 series 4 probably representing a small focal area of fibrosis or parenchymal band formation. No consolidation effusion or pneumothorax. Central large airways are patent. 10 mm calcified granuloma right lung base. Heart size normal. No significant pericardial effusion. No thoracic aortic aneurysm. No bulky lymphadenopathy. Diffuse degenerative and osteopenic changes throughout the bones. No acute process seen in the visualized portions of the upper abdomen. IMPRESSION: 1. No gross acute intrathoracic process. 2. 1.5 x 0.6 cm spiculated nodular focus right lower lobe probably representing small fibrotic band formation. Correlate with follow-up chest CT in 3-6 months. 3. Moderately severe emphysematous changes throughout the lungs, as well as mild to moderate scattered fibrosing changes. Reviewed, dictated and finalized at location A. LE LEAK AND SQUEAK REPAIRER IMPRESSION: 1. No gross acute intrathoracic process. 2. 1.5 x 0.6 cm spiculated nodular focus right lower lobe probably representing small fibrotic band formation. Correlate with follow-up chest CT in 3-6 months . 3. Moderately severe emphysematous changes throughout the lungs, as well as mil d to moderate scattered fibrosing changes.
[2025-05-10 17:36] VITALS: BP 113/80; PULSE 88; RESP 22; TEMP 36.8; O2SAT 100
--- NOTE | 2025-05-10 17:47 | ECG_ITS ---
Test Date: 2025-05-10 17:38:15 Measurements Intervals [place] Rate: 89 P: 148 [place]: 137 QRS: -21 QRSD: 128 T: 151 QT: 379 QTc: 464 Interpretive Statements SINUS RHYTHM POSSIBLE LEFT ATRIAL ENLARGEMENT LEFT BUNDLE BRANCH BLOCK BASELINE ARTIFACT- I, III, AVR, AVL, AVF, V1-V6 ABNORMAL ECG COMPARED WITH PRIOR ECG 05-01-25 18:34 NO SIGNIFICANT CHANGE Electronically Signed On 05-11-2025 06:36:20 ANODIZE MACHINE OPERATOR by Onesimo Jin D.O.
--- NOTE | 2025-05-10 17:52 | ED_ITS ---
HPI - SOB/Dyspnea General Chief Complaint: Recheck/Abnormal Lab/Rx <Josie Miranda PA-C - Last Filed: 05/10/25 19:30> Stated Complaint: sick case x weeks <ANITA Wang Last Filed: 05/10/25 19:30> Time Seen by Provider: 05/10/25 17:38 <Josie Miranda PA-C - Last Filed: 05/10/25 19:30> Source: patient and family <Josie Miranda PA-C - Last Filed: 05/10/25 19:30> Mode of arrival: EMS <ANITA Wang Last Filed: 05/10/25 19:30> Limitations: dementia <Josie Miranda PA-C - Last Filed: 05/10/25 19:30> History of Present Illness HPI Narrative: This is a 89 year old male that presents to the ER for low oxygen saturation. He was at his PCP office today and his oxygen saturation was low was sent to the ER for further evaluation. He is not set up for oxygen at his facility yet, this has been an ongoing issue the last several weeks. <Josie Miranda PA-C - Last Filed: 05/10/25 19:30> Related Data Allergies/Adverse Reactions: Allergies Allergy/AdvReac Type Severity Reaction Status Date / Time No Known Allergies Allergy Verified 05/10/25 13:10 <Josie Miranda PA-C - Last Filed: 05/10/25 19:30> Review of Systems 2 Review of Systems: All systems reviewed & are unremarkable except as noted in HPI and below <Josie Miranda PA-C - Last Filed: 05/10/25 19:30> PMFSH Past Medical History Medical History: Medical History Restlessness and agitation Cognitive communication deficit Other abnormalities of gait and mobility Unsteadiness on feet Dysphagia, unspecified Nutritional anemia, unspecified Vitamin B12 deficiency anemia, unspecified Unspecified dementia, unspecified severity, without behavioral disturbance, psychotic disturbance, mood disturbance, and anxiety Nephrolithiasis (2016) <ANITA Wang Last Filed: 05/10/25 19:30> Surgical History Surgical History: Surgical History H/O inguinal hernia repair (2003) left <Josie Miranda PA-C - Last Filed: 05/10/25 19:30> Social History Social History: Social History Social History: Code status: POLST signed 05/24/22 reports No CPR/Do Not Attempt Resuscitation (DNAR) with comfort-focused treatment Smoking status: Former smoker Alcohol intake: never Substance use: never Living arrangements: [facility] Additional living arrangements comments: 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 HEAD: Normocephalic, atraumatic. EYES: EOMI. ENT: Nares clear, no rhinorrhea or epistaxis. Mucous membranes moist. Oropharynx without tonsillar hypertrophy exudate or other lesions. CHEST: No respiratory distress. Mild expiratory wheezing. No rales or rhonchi HEART: Regular rate and rhythm. No murmur heard. Normal peripheral pulses. EXTREMITIES: Normal range of motion. No edema. SKIN: Warm, dry, no rash. NEURO: No focal deficits. Alert and oriented x3. PSYCH: Normal mood and affect <Josie Miranda PA-C - Last Filed: 05/10/25 19:30> Course INSURANCE LAW SPECIALIST/PA Physician Supervision This visit was performed by both a physician and an APC; I performed all aspects of the medical decision making component of this evaluation as documented. Patient admitted to help facilitate home O2 setup <Maura Steel MD - Last Filed: 05/10/25 19:33> Vital Signs Vital signs: Vital Signs Temperature 98.2 F 05/10/25 17:36 Pulse Rate 88 05/10/25 17:36 Respiratory Rate 22 H 05/10/25 17:36 Blood Pressure 113/80 05/10/25 17:36 Pulse Oximetry 100 05/10/25 17:36 Temperature 98.2 F 05/10/25 17:36 Pulse Rate 88 05/10/25 17:36 Respiratory Rate 22 H 05/10/25 17:36 Blood Pressure 113/80 05/10/25 17:36 Pulse Oximetry 100 05/10/25 17:36 <Josie Miranda PA-C - Last Filed: 05/10/25 19:30> Vital Signs Temperature 98.2 F 05/10/25 17:36 Pulse Rate 88 05/10/25 17:36 Respiratory Rate 22 H 05/10/25 17:36 Blood Pressure 113/80 05/10/25 17:36 Pulse Oximetry 100 05/10/25 17:36 Temperature 98.2 F 05/10/25 17:36 Pulse Rate 88 05/10/25 17:36 Respiratory Rate 22 H 05/10/25 17:36 Blood Pressure 113/80 05/10/25 17:36 Pulse Oximetry 100 05/10/25 17:36 <Maura Steel MD - Last Filed: 05/10/25 19:33> MDM MDM Narrative Medical decision making narrative: Patient presents to the emergency department for hypoxia. Over the last several weeks patient has been evaluated for same multiple times. They have not been able to arrange for him to have home oxygen with exertion. His oxygen saturation is 100% on room air while at rest. He had dipped into the 70s to 80s at his PCP visit today with exertion. His daughter wishes for him to be admitted to be able to arrange home oxygen. he is afebrile and nontoxic appearing. Mild wheezing on exam. Given nebulizer treatment, Solu-Medrol, magnesium. CBC with leukocytosis to 16.8. Influenza, RSV and COVID screens are negative. Kidney function appears stable. Chest x-ray without acute findings. Will be admitted for further management <Josie Miranda PA-C - Last Filed: 05/10/25 19:30> Differential Diagnosis Differential Diagnosis: acute respiratory failure with hypoxia, COPD exacerbation <Josie Miranda PA-C - Last Filed: 05/10/25 19:30> Medical Records I have reviewed the following patient records and this information was taken into consideration when formulating the assessment and plan.: previous ER visits and previous clinic visits <Josie Miranda PA-C - Last Filed: 05/10/25 19:30> Lab Data MDM Lab Attestation statement: I personally reviewed the patient's lab results. <Josie Miranda PA-C - Last Filed: 05/10/25 19:30> Result diagrams: 05/10/25 18:32 05/10/25 18:32 <Josie Miranda PA-C - Last Filed: 05/10/25 19:30> Labs: Lab Results 05/10/25 05/10/25 Range/Units 17:59 18:32 WBC 16.8 H (4.5-10.0) K/mm3 RBC 3.78 L (4.6-6.20) M/mm3 Hgb 12.4 L (14.0-18.0) g/dL Hct 39.4 L (42.0-52.0) % MCV 104.2 H (80-100) fl MCH 32.8 (26-34) pg MCHC 31.5 L (32-36) g/dl RDW 13.7 (11.5-14.5) % Plt Count 207 (150-375) k/mm3 MPV 9.4 (7.4-10.4) fl Immature Gran % (Auto) 0.5 (0-0.5) % Neut % (Auto) 78.5 H (45.5-73.1) % Lymph % (Auto) 12.1 L (18.3-44.2) % Spink % (Auto) 8.3 (2.6-8.5) % Eos % (Auto) 0.5 (0-4.4) % Baso % (Auto) 0.1 L (0.2-1.2) % Lymph # (Auto) 2.03 (0.9-3.2) K/mm3 Spink # (Auto) 1.4 H (0.1-0.6) K/mm3 Eos # (Auto) 0.1 (0-0.3) K/mm3 Baso # (Auto) 0.0 (0.0-0.1) K/mm3 Abs Immat Gran (auto) 0.08 H (0.00-0.031) K/mm3 Absolute Neuts (auto) 13.2 H (1.3-6.7) K/mm3 Absolute Nucleated RBC 0.000 (0.0-0.012) K/mm3 Nucleated RBC % 0.0 (0.0-0.2) % Sodium 137 (137-145) mmol/L Potassium 3.7 (3.4-5.0) mmol/L Chloride 105 (98-107) mmol/L Carbon Dioxide 31 H (22-30) mmol/L Anion Gap 1 L (4-12) mmol/L BUN 32 H (9-20) mg/dL Creatinine 1.39 H (0.7-1.3) mg/dL Estim Creat Clear Calc 28 ml/min Estimated GFR 48 L (59 - ) Glucose 83 (65-110) mg/dL Calcium 8.6 (8.4-10.2) mg/dL Total Bilirubin 0.5 (0.2-1.3) mg/dL AST 23 (17-59) U/L ALT 15 (6-50) U/L Alkaline Phosphatase 133 H (38-126) U/L Total Protein 6.8 (6.3-8.2) g/dL Albumin 3.5 (3.5-5.1) g/dL Influenza A (RT-PCR) Negative (Negative) Influenza B (RT-PCR) Negative (Negative) RSV (RT-PCR) Negative (Negative) SARS-CoV-2 RNA (RT-PCR) Negative (Negative) <Josie Miranda PA-C - Last Filed: 05/10/25 19:30> Lab Results 05/10/25 05/10/25 Range/Units 17:59 18:32 WBC 16.8 H (4.5-10.0) K/mm3 RBC 3.78 L (4.6-6.20) M/mm3 Hgb 12.4 L (14.0-18.0) g/dL Hct 39.4 L (42.0-52.0) % MCV 104.2 H (80-100) fl MCH 32.8 (26-34) pg MCHC 31.5 L (32-36) g/dl RDW 13.7 (11.5-14.5) % Plt Count 207 (150-375) k/mm3 MPV 9.4 (7.4-10.4) fl Immature Gran % (Auto) 0.5 (0-0.5) % Neut % (Auto) 78.5 H (45.5-73.1) % Lymph % (Auto) 12.1 L (18.3-44.2) % Spink % (Auto) 8.3 (2.6-8.5) % Eos % (Auto) 0.5 (0-4.4) % Baso % (Auto) 0.1 L (0.2-1.2) % Lymph # (Auto) 2.03 (0.9-3.2) K/mm3 Spink # (Auto) 1.4 H (0.1-0.6) K/mm3 Eos # (Auto) 0.1 (0-0.3) K/mm3 Baso # (Auto) 0.0 (0.0-0.1) K/mm3 Abs Immat Gran (auto) 0.08 H (0.00-0.031) K/mm3 Absolute Neuts (auto) 13.2 H (1.3-6.7) K/mm3 Absolute Nucleated RBC 0.000 (0.0-0.012) K/mm3 Nucleated RBC % 0.0 (0.0-0.2) % Sodium 137 (137-145) mmol/L Potassium 3.7 (3.4-5.0) mmol/L Chloride 105 (98-107) mmol/L Carbon Dioxide 31 H (22-30) mmol/L Anion Gap 1 L (4-12) mmol/L BUN 32 H (9-20) mg/dL Creatinine 1.39 H (0.7-1.3) mg/dL Estim Creat Clear Calc 28 ml/min Estimated GFR 48 L (59 - ) Glucose 83 (65-110) mg/dL Calcium 8.6 (8.4-10.2) mg/dL Total Bilirubin 0.5 (0.2-1.3) mg/dL AST 23 (17-59) U/L ALT 15 (6-50) U/L Alkaline Phosphatase 133 H (38-126) U/L Total Protein 6.8 (6.3-8.2) g/dL Albumin 3.5 (3.5-5.1) g/dL Influenza A (RT-PCR) Negative (Negative) Influenza B (RT-PCR) Negative (Negative) RSV (RT-PCR) Negative (Negative) SARS-CoV-2 RNA (RT-PCR) Negative (Negative) <Maura Steel MD - Last Filed: 05/10/25 19:33> Imaging Data Radiologist's impression: ITS Impressions Chest X-Ray 05/10/25 18:52 IMPRESSION: 1. No acute findings in the portable chest x-ray. Emphysematous lungs similar to prior chest x-ray findings. <Josie Miranda PA-C - Last Filed: 05/10/25 19:30> ITS Impressions Chest X-Ray 05/10/25 18:52 IMPRESSION: 1. No acute findings in the portable chest x-ray. Emphysematous lungs similar to prior chest x-ray findings. <Maura Steel MD - Last Filed: 05/10/25 19:33> Critical Care Time Critical Care Time Critical Care Time: No <Josie Miranda PA-C - Last Filed: 05/10/25 19:30> Discharge Plan Discharge Clinical Impression: Hypoxia <Josie Miranda PA-C - Last Filed: 05/10/25 19:30> Patient Disposition: Still a Patient <Josie Miranda PA-C - Last Filed: 05/10/25 19:30> Condition: Stable <Josie Miranda PA-C - Last Filed: 05/10/25 19:30> Patient Language: Georgian <Josie Miranda PA-C - Last Filed: 05/10/25 19:30> Prescriptions: No Action trazodone 50 mg tablet 25 mg PO QHS PRN (Reason: insomnia) Qty: 90 1RF cyanocobalamin (vitamin B-12) [Vitamin B-12] 1,000 mcg Tablet 1,000 mcg PO QAM Qty: 30 0RF acetaminophen [Mapap (acetaminophen)] 325 mg Tablet 650 mg PO Q6H PRN (Reason: Mild Pain (1-3) Or Fever) Qty: 30 0RF prednisone 20 mg tablet 40 mg PO DAILY 5 Days Qty: 10 0RF lorazepam [Ativan] 0.5 mg tablet 0.5 mg PO TID PRN (Reason: anxiety) Qty: 10 0RF Claritin 10 mg tablet,chewable 10 mg PO DAILY Qty: 90 1RF ipratropium-albuterol 0.5 mg-3 mg(2.5 mg base)/3 mL solution for nebulization 3 ml inhalation QID Qty: 360 5RF Rx Instructions: Give by nebulizer <Josie Miranda PA-C - Last Filed: 05/10/25 19:30> Follow-up/Referrals: Kendell Chung MD [Primary Care Provider, Family Practice] <Josie Miranda PA-C - Last Filed: 05/10/25 19:30>
--- NOTE | 2025-05-10 18:08 | PC.NURSE ---
Pt very upset about clothes being removed, verbally expressing desire to keep own clothes on.
[2025-05-10] MEDS: IPRATROPIUM BR 0.02% INH SOLN 0.5 MG/2.5 ML VIAL INHALATION (18:35)
[2025-05-10 18:39] LABS: Hematocrit 39.4 % (42.0-52.0); Hemoglobin 12.4 g/dL (14.0-18.0); Immature Granulocyte Percent A 0.5 % (0-0.5); Lymphocytes Absolute Auto 2.03 K/mm3 (0.9-3.2); Mean Corpuscular HGB Conc 31.5 g/dl (32-36); Mean Corpuscular Hemoglobin 32.8 pg (26-34); Mean Corpuscular Volume 104.2 fl (80-100); Nucleated Red Blood Cells Absolute Auto 0.000 K/mm3 (0.0-0.012); Nucleated Red Blood Cells Perc 0.0 % (0.0-0.2); Platelet Count Result 207 k/mm3 (150-375); Red Blood Count 3.78 M/mm3 (4.6-6.20); White Blood Count 16.8 K/mm3 (4.5-10.0)
[2025-05-10 18:42] LABS: Influenza A QL RT-PCR Negative (Negative); Influenza B QL RT-PCR Negative (Negative); RSV RNA, RT-PCR Negative (Negative); SARS-CoV-2 RNA PCR Negative (Negative)
[2025-05-10 19:04] LABS: Alanine Aminotransferase 15 U/L (6-50); Albumin Level 3.5 g/dL (3.5-5.1); Alkaline Phosphatase 133 U/L (38-126); Anion Gap 1 mmol/L (4-12); Aspartate Amino Transferase 23 U/L (17-59); Bilirubin,Total 0.5 mg/dL (0.2-1.3); Blood Urea Nitrogen 32 mg/dL (9-20); Calcium 8.6 mg/dL (8.4-10.2); Carbon Dioxide 31 mmol/L (22-30); Chloride 105 mmol/L (98-107); Estimated CRCL calculation 28 ml/min; Estimated Glomerular Filt Rate 48; Glucose 83 mg/dL (65-110); Potassium 3.7 mmol/L (3.4-5.0); Sodium 137 mmol/L (137-145); Total Protein 6.8 g/dL (6.3-8.2)
[2025-05-10] MEDS: MAGNESIUM SULF 2 GM/WATER 50ML 2 GM/50 ML BAG IVPB (19:24)
--- NOTE | 2025-05-10 19:26 | PC.NURSE ---
Patient is A&O x1 and refusing all monitoring equipment. Pt's family is at bedside. Will continue to monitor.
[2025-05-10 19:55] VITALS: O2SAT 99
--- NOTE | 2025-05-10 19:55 | PC.NURSE ---
Pt spot checked SpO2 99%, no O2 at this time.
--- OUTSIDE RECORDS SUMMARY | 2025-05-10 20:23 | XMS_ITS | Clinical Summary ---
Author Organization [facility] Address [facility] [place] [address] Care Team Providers Care Pulpit Operator Name Role Phone Kendell Chung MD Primary Care Provider [phone] Allergies No known active allergies Medications albuterol sulfate HFA 108 (90 Base) MCG/ACT inhaler Inhale 2 puffs into the lungs every 6 (six) hours as needed for Wheezing. 6.7 g 04/28/2025 Active Encounters Date Type Department Care Team Description 04/28/2025 7:23 PM MEALS ON WHEELS DRIVER - 04/28/2025 7:39 PM MEALS ON WHEELS DRIVER Emergency [facility] [place] [address] Corey Cole PA Arm Injury (Right arm swelling s/p blood draw) Discharge Disposition: Home or Self Care (Routine Discharge) 04/28/2025 Travel from Last 3 Months Social History Tobacco Use Types Packs/Day Years Used Date Smoking Tobacco: Never Assessed Sex and Gender Information Value Date Recorded Sex Assigned at Male 04/28/2025 7:21 PM MEALS ON WHEELS DRIVER Legal Sex Male 6:59 PM MEALS ON WHEELS DRIVER Gender Identity Not on file Sexual Orientation Not on file Last Filed Vital Signs Vital Sign Reading Time Taken Comments Blood Pressure 132/80 04/28/2025 7:13 PM MEALS ON WHEELS DRIVER Pulse 84 04/28/2025 7:13 PM MEALS ON WHEELS DRIVER Temperature 36.8 C (98.2 F) 04/28/2025 7:13 PM MEALS ON WHEELS DRIVER Respiratory Rate 22 04/28/2025 7:13 PM MEALS ON WHEELS DRIVER Oxygen Saturation 98% 04/28/2025 7:13 PM MEALS ON WHEELS DRIVER Inhaled Oxygen Concentration - - Weight 55.3 kg (121 lb 14.6 oz) 04/28/2025 7:13 PM MEALS ON WHEELS DRIVER Height 180.3 cm (5' 11) 04/28/2025 7:13 PM MEALS ON WHEELS DRIVER Body Mass Index 17 04/28/2025 7:13 PM MEALS ON WHEELS DRIVER Plan of Treatment Health Maintenance Due Date [...] patient's age to complete this topic Insurance [facility] MEDICARE Care Teams Pulpit Operator Relationship Specialty Start Date End Date Kendell Chung MD [phone] [address] PCP - General FAMILY PRACTICE 04/28/25
[2025-05-10 21:01] VITALS: BP 123/73; PULSE 84; RESP 18; TEMP 36.9; O2SAT 96
--- NOTE | 2025-05-10 21:03 | WPCEDHO ---
ED Hand Off Checklist All vitals saved:Y IV Site documented:Y All med administrations documented:Y Triage Note Triage Note pt to ED from [place] of 05/10/25 18:06 Pawelharrysixtogregory. pt to be seen for two weeks of URI s/s. pt noted to have a cough, he himself does not want anything done. pt was seen at PCP earlier in day, they tried to sent pt to ED, pt was adamant at that time he did not want to be transferred. So he went back to facility and EMS was called. pt A/O x2 a best, is DNR/DNI Pt in [facility] care, a&ox1. Pt complaining about being here and not wanting anything done and to go home. Pt denies complaints. Pt in NAD. Allergies No Known Allergies Allergy (Verified 05/10/25 13:10) FROM UNCODED ALLERGIES PT DENIES ALLERGIES DAY OF SURGERY Administered/Completed Medications Discontinued Medications Magnesium Sulfate (Magnesium Sulf 2 Gm/Water 50ml) 2 gm in 50 mls @ 25 mls/hr IVPB ONCE STA Stop: 05/10/25 19:48 Last Admin: 05/10/25 19:24 Dose: 25 mls/hr Documented By: JOSE Co-signed By: DAMON Ipratropium Burden (Ipratropium Br 0.02% Inh Soln 0.5 Mg/2.5 Ml Vial) 0.5 mg INHALATION ONCE STA Stop: 05/10/25 18:21 Last Admin: 05/10/25 18:35 Dose: 0.5 mg Documented By: RES Levalbuterol HCl (Levalbuterol Neb 1.25 Mg/3 Ml) 1.25 mg INHALATION ONCE STA Stop: 05/10/25 18:21 Last Admin: 05/10/25 18:35 Dose: 1.25 mg Documented By: RES Methylprednisolone Sodium Succinate (Methylprednisolone Sod Succ 125 Mg Vial) 125 mg IV PUSH ONCE STA Stop: 05/10/25 17:50 Last Admin: 05/10/25 18:35 Dose: 125 mg Documented By: DAMON Notes 05/10/25 19:55 Nurse Note by Roxana Guevara Pt spot checked SpO2 99%, no O2 at this time. Initialized on 05/10/25 19:55 - END OF NOTE 05/10/25 19:26 Nurse Note by Roxana Guevara Patient is A&O x1 and refusing all monitoring equipment. Pt's family is at bedside. Will continue to monitor. Initialized on 05/10/25 19:26 - END OF NOTE 05/10/25 18:08 Nurse Note by Idalia Garcia Pt very upset about clothes being removed, verbally expressing desire to keep own clothes on. Initialized on 05/10/25 18:08 - END OF NOTE Interventions/Assessments General Assessment Start: 05/10/25 17:34 Freq: Status: Active Protocol: Document 05/10/25 19:25 AMH (Rec: 05/10/25 19:25 AMH [id number]) GA Neurological Assessment Neurological No Assessment WNL Level of Alert,Awake Consciousness Arousable to Verbal Orientation Oriented to Person IV / Saline Lock, Insert Start: 05/10/25 17:47 Freq: STAT Status: Active Protocol: Document 05/10/25 19:24 AMH (Rec: 05/10/25 19:25 AMH [id number]) IV Assessment Peripheral Access Left Forearm IV Catheter Access Initiated IV Insertion Date 05/10/25 IV Insertion Time 19:20 Catheter Gauge 18 IV Insertion 1 Attempts Ultrasound Used for No Placement IV Site Assessment WNL IV Care and WNL Maintenance Last Vital Signs Temperature 98.4 F 05/10/25 21:01 Pulse Rate 84 05/10/25 21:01 Respiratory Rate 18 05/10/25 21:01 Pulse Oximetry 96 05/10/25 21:01 Blood Pressure 123/73 05/10/25 21:01 Blood Pressure Mean 89 05/10/25 21:01 Weight 60.4 kg 05/10/25 18:06 Last Result - Abnormals Only WBC 16.8 K/mm3 (4.5-10.0) H 05/10/25 18:32 RBC 3.78 M/mm3 (4.6-6.20) L 05/10/25 18:32 Hgb 12.4 g/dL (14.0-18.0) L 05/10/25 18:32 Hct 39.4 % (42.0-52.0) L 05/10/25 18:32 MCV 104.2 fl (80-100) H 05/10/25 18:32 MCHC 31.5 g/dl (32-36) L 05/10/25 18:32 Neut % (Auto) 78.5 % (45.5-73.1) H 05/10/25 18:32 Lymph % (Auto) 12.1 % (18.3-44.2) L 05/10/25 18:32 Baso % (Auto) 0.1 % (0.2-1.2) L 05/10/25 18:32 [place] # (Auto) 1.4 K/mm3 (0.1-0.6) H 05/10/25 18:32 Abs Immat Gran (auto) 0.08 K/mm3 (0.00-0.031) H 05/10/25 18:32 Absolute Neuts (auto) 13.2 K/mm3 (1.3-6.7) H 05/10/25 18:32 Carbon Dioxide 31 mmol/L (22-30) H 05/10/25 18:32 Anion Gap 1 mmol/L (4-12) L 05/10/25 18:32 BUN 32 mg/dL (9-20) H 05/10/25 18:32 Creatinine 1.39 mg/dL (0.7-1.3) H 05/10/25 18:32 Estimated GFR 48 (59-) L 05/10/25 18:32 Alkaline Phosphatase 133 U/L (38-126) H 05/10/25 18:32
[2025-05-10 22:56] VITALS: O2SAT 98
--- NOTE | 2025-05-10 23:03 | ADMGEN ---
This patient, Richie Lozano, was admitted to [facility] Surg Room 314-01. Patient/family oriented to hospital policies and general routines including ID bracelet, bed and alarms, visiting hours, pain management, procedures, bathroom and other care routines, personal items, smoking policy, room service/diet, and visiting hours. Information on how to activate the Rapid Response Team has been discussed. Patient/Family are encouraged to report perceived risks to care and to ask questions if they do not understand what they are told or what they should do.
[2025-05-11] VITALS (9 sets, daily range): BP systolic 112–140; BP diastolic 60–81; PULSE 70–95; RESP 18–24; TEMP 36.3–36.7; O2SAT 94–100; BMI 20.8
--- NOTE | 2025-05-11 00:08 | P.HP_ITS ---
H&P: HPI History of Present Illness Date/Time: 05/11/25 00:08 Chief Complaint: Cough, hypoxia Narrative: 89-year-old male with a past medical history of COPD and dementia who presented to the ER from primary care physician's office due to hypoxia. The patient has had 2 weeks of upper respiratory symptoms with cough and repeated episodes of visits to the ER for shortness of breath (04/28/2025, 05/01/2025 and 05/05/2025). The last time that the patient's facility try distended to the ER he refused transfer to the ER. The patient went into primary care provider's office today and on exam the patient was found to be satting 80% on room air in 74% on room air with this 6 minute walk test. The primary care provider tried to arrange for outpatient oxygen at the patient's living facility was unable to arrange. The patient was adamant that he would not want evaluated and did not want any treatment. However x-ray was performed and demonstrated no evidence of pneumonia. But on exam patient had crackles at bilateral bases and tachypnea at rest worsening with exertion[place] [id number] and had failed outpatient prednisone that was started on the 01 of May. Patient does have dementia with behaviors in is been quite agitated. A CRUISE COUNSELOR has been at bedside throughout the night trying to redirect the patient. He keeps removing his oxygen and having recurrent desaturations. He also keeps trying to get up and ambulate around the floor med as significant hypoxia when he does so. Is maintaining oxygen saturations on 2 L nasal cannula satting 94% at the time of my evaluation. He is oriented to person only at the time of my eval. He is unable to provide any meaningful review of systems and as such majority of history was obtained from ER physician report, nursing report and review past medical records. Review of Systems 2 Review of Systems: Unable to obtain due to patient's dementia [facility] Past Medical History Medical History (Updated 05/11/25 @ 04:21 by Cori Duffy DO) Dementia, Alzheimer's, with behavior disturbance Chronic kidney disease, stage 3b Vitamin B12 deficiency COPD (chronic obstructive pulmonary disease) Dysphagia, unspecified Nephrolithiasis (2016) Surgical History Surgical History (Updated 05/11/25 @ 00:14 by Cori Duffy DO) History of tonsillectomy and adenoidectomy H/O inguinal hernia repair (2003) left Family History Family History (Updated 05/11/25 @ 00:15 by Cori Duffy DO) Other Unknown family medical history Social History Social History (Updated 05/11/25 @ 00:15 by Cori Duffy DO) Social History: Code status: POLST signed 05/24/22 reports No CPR/Do Not Attempt Resuscitation (DNAR) with comfort-focused treatment Smoking status: Former smoker Alcohol intake: never Substance use: never Living arrangements: assisted Additional living arrangements comments: [facility] since 07/30/22 Occupation/Education: retired 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/education 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 Gender identity (if verbalized by the patient): Male Spiritual care concerns: No Meds Home Medications and Allergies Home Medications ?Medication ?Instructions ?Recorded ?Confirmed ?Type acetaminophen 325 mg tablet (Mapap 650 mg (2 x 325 mg) PO Q6H PRN 05/24/22 05/11/25 Rx (acetaminophen)) Mild Pain (1-3) Or Fever #30 tabs cyanocobalamin (vitamin B-12) 1,000 mcg PO QAM #30 tab s 05/24/22 05/11/25 Rx 1,000 mcg tablet (Vitamin B-12) ipratropium 0.5 mg-albuterol 3 mg 3 ml inhalation QID #360 mL 04/30/25 05/11/25 Rx (2.5 mg base)/3 mL nebulization soln prednisone 20 mg tablet 40 mg (2 x 20 mg) PO DAILY 5 days 05/01/25 05/11/25 Rx #10 tabs loratadine 10 mg disintegrating 10 mg PO DAILY 5 05/11/25 History tablet trazodone 100 mg tablet 100 mg PO HS 05/11/25 History Allergies Allergy/AdvReac Type Severity Reaction Status Date / Time No Known Allergies Allergy Verified 05/10/25 13:10 Vital Signs Vital Signs - 24 hr 05/10/25 17:36 05/10/25 19:55 05/10/25 21:01 Temperature 98.2 F 98.4 F Pulse Rate 88 84 Respiratory Rate 22 H 18 Blood Pressure 113/80 123/73 Pulse Oximetry 100 99 96 Exam 2 Narrative: Weight 60.4 kg BMI 20.9 Const: Other: Acutely ill-appearing, thin body habitus, sitting up in wheelchair HENMT: Other: Mucous membranes are tacky, head is normocephalic atraumatic, nasal cannula in place Eyes: Other: are equal and reactive with evidence of bilateral lens implants noted, no scleral icterus Neck: Other: No JVD, no lymphadenopathy Resp: Other: Coarse crackles bilateral lower lung broderick posteriorly, coarse crackles throughout anterior lung broderick bilateral, moderate tachypnea Cardio: Other: Regular rate, irregular rhythm, 2+ bilateral radial pulses unable to assess pedal pulses the patient refuses to have his feet examined or shoes taken off GI: Other: Soft, normoactive bowel sounds Skin: Other: No pallor, non no petechiae to exposed areas of skin Neuro: Other: Alert oriented to self only, speech is clear, no facial asymmetry, moves all extremities equally Extrem: Other: Equal entry examiner strength bilateral Psych: Other: Agitated, poor judgment and insight, restless Results Labs Labs: Laboratory Tests 05/10/25 18:32 05/10/25 18:32 05/10/25 05/10/25 17:59 18:32 WBC 16.8 H RBC 3.78 L Hgb 12.4 L Hct 39.4 L MCV 104.2 H MCH 32.8 MCHC 31.5 L RDW 13.7 Plt Count 207 MPV 9.4 Immature Gran % (Auto) 0.5 Neut % (Auto) 78.5 H Lymph % (Auto) 12.1 L [place] % (Auto) 8.3 Eos % (Auto) 0.5 Baso % (Auto) 0.1 L Lymph # (Auto) 2.03 [place] # (Auto) 1.4 H Eos # (Auto) 0.1 Baso # (Auto) 0.0 Abs Immat Gran (auto) 0.08 H Absolute Neuts (auto) 13.2 H Absolute Nucleated RBC 0.000 Nucleated RBC % 0.0 Sodium 137 Potassium 3.7 Chloride 105 Carbon Dioxide 31 H Anion Gap 1 L BUN 32 H Creatinine 1.39 H Estim Creat Clear Calc 28 Estimated GFR 48 L Glucose 83 Calcium 8.6 Total Bilirubin 0.5 AST 23 ALT 15 Alkaline Phosphatase 133 H Total Protein 6.8 Albumin 3.5 Influenza A (RT-PCR) Negative Influenza B (RT-PCR) Negative RSV (RT-PCR) Negative SARS-CoV-2 RNA (RT-PCR) Negative Impressions Chest X-Ray 05/10/25 18:52 IMPRESSION: 1. No acute findings in the portable chest x-ray. Emphysematous lungs similar to prior chest x-ray findings. EKG:Test Date: 2025-05-01 18:34:45 Measurements Intervals [place] Rate: 88 P: 75 UT: 148 QRS: 6 QRSD: 131 T: 77 QT: 406 QTc: 493 Interpretive Statements POOR QUALITY ECG BECAUSE OF BASELINE ARTIFACT SINUS RHYTHM LEFT BUNDLE BRANCH BLOCK [120+ ms QRS DURATION, 80+ ms Q/S IN V1/V2, 85+ ms R IN I/aVL/V5/V6] ABNORMAL ECG Compared to ECG 04/28/2025 09:58:50 No significant changes Quality VTE Prophylaxis VTE prophylaxis: mechanical ordered (SCDs) Assessment and Plan Assessment and plan (1) Acute hypoxic respiratory failure: Code(s): J96.01 - Acute respiratory failure with hypoxia Status: Acute (2) Leukocytosis: Qualifiers: Leukocytosis type: unspecified Qualified Code(s): D72.829 - Elevated white blood cell count, unspecified Code(s): D72.829 - Elevated white blood cell count, unspecified Status: Acute (3) Advancing dementia: Onset Date: 04/2021 Code(s): F03.90 - Unspecified dementia, unspecified severity, without behavioral disturbance, psychotic disturbance, mood disturbance, and anxiety Status: Acute (4) Dementia, Alzheimer's, with behavior disturbance: Code(s): G30.9 - Alzheimer's disease, unspecified; F02.818 - Dementia in other diseases classified elsewhere, unspecified severity, with other behavioral disturbance Status: Acute Plan The patient has history of chronic nocturnal hypoxia but now has acute hypoxia during the day given the fact that he is has some a accompanying leukocytosis and worsening cough as well as lung exam even though chest x-ray suggest there is not a pneumonia I am going to treat the patient is if there is a pneumonia present. Granted leukocytosis could be due to recent steroid use but given respiratory symptoms and exam findings cannot rule out underlying pneumonia. The benefits of treatment outweigh the risks. Will also continue patient on IV Solu-Medrol 40 mg q.6 hours and scheduled nebulizer treatments. Patient will need continuous oxygen on discharge back to his long term facility. Patient does have dementia and is difficult to redirect. Will continue the patient's home trazodone and will continue process safety engineering technologist at bedside and frequent redirection. Patient has been admitted as observation status. MEDICAL DECISION MAKING NARRATIVE -Spoke with the ED provider in detail regarding patient's evaluation, workup and management -Patient seen and examined at bedside -Collaborated with patient's nurse at the bedside in detail and addressed all concerns -Labs, electrolytes, radiology, investigations and test results personally reviewed and interpreted unless otherwise specified -ED/Consult/Nursing/Ancilliary notes on the chart reviewed and appreciated -applicable past medical records and labs were reviewed and unless stated otherwise. -Spoke with patient at bedside and diagnosis, plan of care was discussed and questions answered. Prior Studies I have reviewed the following patient records and this information was taken into consideration when formulating the assessment and plan.: previous labs, previous ER visits, previous hospitalizations and previous clinic visits Hospitalist MIPS Advance Care Plan I have confirmed that the patient's Advanced Care Plan is present, code status is documented, or surrogate decision maker is listed in patient medical record.: Yes Medication Reconciliation I have utilized all available resources to obtain, update and review the patients current medications (includes all prescriptions, OTC, herbals, cannabis, and nutritional supplements).: Yes
[2025-05-11] MEDS: IPRATROPIUM 0.5 MG/ALBUTEROL SULFATE 2.5 MG (BASE) AMPUL.NEB 3 ML INHALATION ×2 (01:13→20:49)
[2025-05-11] MEDS: cefTRIAXone 1 GM in SODIUM CHLORIDE 0.9% IV 50 ML 100 ML IVPB (04:50)
[2025-05-11 06:16] LABS: Hematocrit 37.5 % (42.0-52.0); Hemoglobin 11.6 g/dL (14.0-18.0); Mean Corpuscular HGB Conc 30.9 g/dl (32-36); Mean Corpuscular Hemoglobin 32.3 pg (26-34); Mean Corpuscular Volume 104.5 fl (80-100); Platelet Count Result 193 k/mm3 (150-375); Red Blood Count 3.59 M/mm3 (4.6-6.20); White Blood Count 10.1 K/mm3 (4.5-10.0)
[2025-05-11] MEDS: DOXYCYCLINE IV 100 MG in SODIUM CHLORIDE 0.9% IV 100 ML IVPB ×2 (06:30→16:25)
[2025-05-11 06:47] LABS: Anion Gap 7 mmol/L (4-12); Blood Urea Nitrogen 34 mg/dL (9-20); Calcium 8.7 mg/dL (8.4-10.2); Carbon Dioxide 22 mmol/L (22-30); Chloride 105 mmol/L (98-107); Estimated CRCL calculation 29 ml/min; Estimated Glomerular Filt Rate 50; Glucose 131 mg/dL (65-110); Potassium 5.1 mmol/L (3.4-5.0); Sodium 134 mmol/L (137-145)
--- NOTE | 2025-05-11 06:52 | PC.NURSE ---
Pt is A&0 x1 and noted to be restless and agitated throughout shift . Pt tries to get out of bed stating that he is going home and does not want nothing of this, Pt constantly needs redirection. Pt tries to pull out IV and will not keep oxygen on. MD Davidn aware, Pt assigned a sitter for safety.
[2025-05-11] MEDS: LORATADINE 10 MG TABLET PO (11:10)
[2025-05-11] MEDS: CYANOCOBALAMIN 1,000 MCG TABLET 1000 MCG PO (11:10)
--- NOTE | 2025-05-11 14:12 | P.PNIM_ITS ---
Assessment and Plan Assessment and Plan (1) Acute hypoxic respiratory failure: Code(s): J96.01 - Acute respiratory failure with hypoxia Status: Acute (2) Leukocytosis: Qualifiers: Leukocytosis type: unspecified Qualified Code(s): D72.829 - Elevated white blood cell count, unspecified Code(s): D72.829 - Elevated white blood cell count, unspecified Status: Acute (3) Advancing dementia: Onset Date: 04/2021 Code(s): F03.90 - Unspecified dementia, unspecified severity, without behavioral disturbance, psychotic disturbance, mood disturbance, and anxiety Status: Acute (4) Dementia, Alzheimer's, with behavior disturbance: Code(s): G30.9 - Alzheimer's disease, unspecified; F02.818 - Dementia in other diseases classified elsewhere, unspecified severity, with other behavioral disturbance Status: Acute Plan COPD exacerbation presented with cough and hypoxemia CT chest no lung infiltrates bilateral wheezing noted at bedside Continue Prednisone, Duoneb treatment and Rocephin titrate oxygen Acute hypoxemic respiratory failure continue above care titrate oxygen, now on 2 liters oxygen monitor Leukocytosis Likely from dehydration markedly improved WBC 10, improving DVT prophylaxis On Sq Lovenox PT/OT Subjective Date/time seen: 05/11/25 14:12 Interval history: Comfortable at bedside at baseline confusion, not following commands Ct chest no lung infiltrates Review of Systems Review of Systems: Unable to obtain due to patient's dementia Exam Narrative: Weight 60.4 kg BMI 20.9 Const: Other: Acutely ill-appearing, thin body habitus, sitting up in wheelchair HENMT: Other: Mucous membranes are tacky, head is normocephalic atraumatic, nasal cannula in place Eyes: Other: are equal and reactive with evidence of bilateral lens implants noted, no scleral icterus Neck: Other: No JVD, no lymphadenopathy Resp: Other: Coarse crackles bilateral lower lung broderick posteriorly, coarse crackles throughout anterior lung broderick bilateral, moderate tachypnea Cardio: Other: Regular rate, irregular rhythm, 2+ bilateral radial pulses unable to assess pedal pulses the patient refuses to have his feet examined or shoes taken off GI: Other: Soft, normoactive bowel sounds Skin: Other: No pallor, non no petechiae to exposed areas of skin Neuro: Other: Alert oriented to self only, speech is clear, no facial asymmetry, moves all extremities equally Extrem: Other: Equal middle school history teacher strength bilateral Psych: Other: Agitated, poor judgment and insight, restless Objective Data Vital Signs Vital Signs: Vital Signs - 24 hr 05/10/25 17:36 05/10/25 19:55 05/10/25 21:01 Temperature 98.2 F 98.4 F Pulse Rate 88 84 Respiratory Rate 22 H 18 Blood Pressure 113/80 123/73 Pulse Oximetry 100 99 96 Oxygen Delivery Oxygen Flow Rate Fraction of Inspired Oxygen 05/10/25 22:56 05/11/25 01:15 05/11/25 01:16 Temperature Pulse Rate 75 80 Respiratory Rate 20 20 Blood Pressure Pulse Oximetry 98 94 Oxygen Delivery Nasal Cannula Nasal Cannula Oxygen Flow Rate 2 2 Fraction of Inspired Oxygen 28 05/11/25 01:25 05/11/25 05:47 05/11/25 09:10 Temperature 97.4 F L Pulse Rate 80 70 Respiratory Rate 20 24 H Blood Pressure 112/60 Pulse Oximetry 100 98 Oxygen Delivery Nasal Cannula Oxygen Flow Rate 2 Fraction of Inspired Oxygen 05/11/25 14:00 Temperature 98.1 F Pulse Rate 85 Respiratory Rate 20 Blood Pressure 134/81 Pulse Oximetry 100 Oxygen Delivery Oxygen Flow Rate Fraction of Inspired Oxygen Intake/Output Intake/Output: Intake & Output 05/08/25 05/09/25 05/10/25 05/11/25 23:59 23:59 23:59 23:59 Intake Total 50 540 Output Total 100 Balance 50 440 Meds/Results Medications: Active Medications Generic Name Dose Route Start Last Admin Trade Name Freq PRN Reason Stop Dose Admin Acetaminophen 650 mg 05/11/25 04:15 Acetaminophen 325 Mg Tablet PO Q6H PRN Mild Pain (1-3) or Fever Albuterol/Ipratropium 3 ml 05/11/25 02:00 05/11/25 08:13 Ipratropium 0.5 Mg/Albuterol Sulfate 2.5 Mg (Base) Ampul.Neb 3 Ml INHALATION Not Given Q6HRT CHELSEA Cyanocobalamin 1,000 mcg 05/11/25 09:00 05/11/25 11:10 Cyanocobalamin 1,000 Mcg Tablet PO 1,000 mcg QAM CHELSEA Administration Ceftriaxone Sodium 1 gm/ 50 mls @ 100 mls/hr 05/11/25 05:00 05/11/25 04:50 Sodium Chloride IVPB 100 mls/hr Q24H CHELSEA Administration Doxycycline Hyclate 100 mg/ 100 mls @ 100 mls/hr 05/11/25 05:00 05/11/25 06:30 Sodium Chloride IVPB 05/15/25 17:59 100 mls/hr Q12H CHELSEA Administration Loratadine 10 mg 05/11/25 09:00 05/11/25 11:10 Loratadine 10 Mg Tablet PO 10 mg QAM CHELSEA Administration Methylprednisolone Sodium Succinate 40 mg 05/11/25 00:00 05/11/25 11:50 Methylprednisolone Sod Succ 40 Mg Vial IV PUSH 40 mg Q6HR CHELSEA Administration Trazodone HCl 100 mg 05/11/25 21:00 Trazodone Hcl 50 Mg Tablet PO HS [facility] Radiology Results: ITS Impressions Chest X-Ray 05/10/25 18:52 IMPRESSION: 1. No acute findings in the portable chest x-ray. Emphysematous lungs similar to prior chest x-ray findings. Chest CT 05/11/25 10:19 IMPRESSION: 1. No gross acute intrathoracic process. 2. 1.5 x 0.6 cm spiculated nodular focus right lower lobe probably representing small fibrotic band formation. Correlate with follow-up chest CT in 3-6 months. 3. Moderately severe emphysematous changes throughout the lungs, as well as mild to moderate scattered fibrosing changes. Labs Labs: Laboratory Results - last 24 hr 05/10/25 05/10/25 05/11/25 17:59 18:32 05:10 WBC 16.8 H 10.1 H RBC 3.78 L 3.59 L Hgb 12.4 L 11.6 L Hct 39.4 L 37.5 L MCV 104.2 H 104.5 H MCH 32.8 32.3 MCHC 31.5 L 30.9 L RDW 13.7 13.4 Plt Count 207 193 MPV 9.4 9.6 Immature Gran % (Auto) 0.5 Neut % (Auto) 78.5 H Lymph % (Auto) 12.1 L [place] % (Auto) 8.3 Eos % (Auto) 0.5 Baso % (Auto) 0.1 L Lymph # (Auto) 2.03 [place] # (Auto) 1.4 H Eos # (Auto) 0.1 Baso # (Auto) 0.0 Abs Immat Gran (auto) 0.08 H Absolute Neuts (auto) 13.2 H Absolute Nucleated RBC 0.000 Nucleated RBC % 0.0 Sodium 137 134 L Potassium 3.7 5.1 H Chloride 105 105 Carbon Dioxide 31 H 22 Anion Gap 1 L 7 BUN 32 H 34 H Creatinine 1.39 H 1.34 H Estim Creat Clear Calc 28 29 Estimated GFR 48 L 50 L Glucose 83 131 H Calcium 8.6 8.7 Total Bilirubin 0.5 AST 23 ALT 15 Alkaline Phosphatase 133 H Total Protein 6.8 Albumin 3.5 Influenza A (RT-PCR) Negative Influenza B (RT-PCR) Negative RSV (RT-PCR) Negative SARS-CoV-2 RNA (RT-PCR) Negative Quality VTE Prophylaxis VTE prophylaxis: mechanical ordered (SCDs)
[2025-05-11] MEDS: OLANZapine 5 MG, WATER, STERILE FOR INJECTION 2.1 ML IM (18:14)
[2025-05-11 20:02] LABS: Vitamin B12 947.0 pg/mL (239-931)
[2025-05-12] VITALS (8 sets, daily range): BP systolic 130–131; BP diastolic 65–70; PULSE 76–99; RESP 20–28; TEMP 36.1–36.7; O2SAT 93–100
--- NOTE | 2025-05-12 00:10 | PC.NURSE ---
1900: received report from day shift; restraint order activer. Per day shift RN, restraint never applied; sitter at bedside; pt calm and cooperative. Restraint order d/cd not needed.
[2025-05-12] MEDS: IPRATROPIUM 0.5 MG/ALBUTEROL SULFATE 2.5 MG (BASE) AMPUL.NEB 3 ML INHALATION ×2 (02:26→08:06)
--- NOTE | 2025-05-12 04:12 | P.PNCROSS_ITS ---
Event Note Event Note Event Note: Patient had received Zyprexa prior to shift change. Nursing staff called me be cause the patient was still agitated around midnight. I did try to order Seroquel with the patient was refusing to take oral medications. The patient was unstable on his feet and was refusing to use the a wheelchair or sit in the geriatric chair. Security had to be called to restrain the patient. Subsequently I ordered Zyprexa 10 mg IM x1. Patient evaluated.
[2025-05-12] MEDS: OLANZapine 10 MG, WATER, STERILE FOR INJECTION 2.1 ML IM (04:20)
[2025-05-12] MEDS: DOXYCYCLINE IV 100 MG in SODIUM CHLORIDE 0.9% IV 100 ML IVPB (04:38)
[2025-05-12] MEDS: cefTRIAXone 1 GM in SODIUM CHLORIDE 0.9% IV 50 ML 100 ML IVPB (04:39)
[2025-05-12 07:01] LABS: Hematocrit 35.2 % (42.0-52.0); Hemoglobin 11.2 g/dL (14.0-18.0); Immature Granulocyte Percent A 1.2 % (0-0.5); Lymphocytes Absolute Auto 0.58 K/mm3 (0.9-3.2); Mean Corpuscular HGB Conc 31.8 g/dl (32-36); Mean Corpuscular Hemoglobin 33.2 pg (26-34); Mean Corpuscular Volume 104.5 fl (80-100); Nucleated Red Blood Cells Absolute Auto 0.000 K/mm3 (0.0-0.012); Nucleated Red Blood Cells Perc 0.0 % (0.0-0.2); Platelet Count Result 193 k/mm3 (150-375); Red Blood Count 3.37 M/mm3 (4.6-6.20); White Blood Count 14.7 K/mm3 (4.5-10.0)
[2025-05-12 07:46] LABS: Alanine Aminotransferase 19 U/L (6-50); Albumin Level 3.0 g/dL (3.5-5.1); Alkaline Phosphatase 77 U/L (38-126); Anion Gap 3 mmol/L (4-12); Aspartate Amino Transferase 40 U/L (17-59); Bilirubin,Total 0.5 mg/dL (0.2-1.3); Blood Urea Nitrogen 38 mg/dL (9-20); Calcium 8.2 mg/dL (8.4-10.2); Carbon Dioxide 26 mmol/L (22-30); Chloride 107 mmol/L (98-107); Estimated CRCL calculation 27 ml/min; Estimated Glomerular Filt Rate 46; Glucose 115 mg/dL (65-110); Magnesium 2.3 mg/dL (1.6-2.3); Potassium 4.6 mmol/L (3.4-5.0); Sodium 136 mmol/L (137-145); Total Protein 5.9 g/dL (6.3-8.2)
--- NOTE | 2025-05-12 08:00 | PC.NURSE ---
Soft wrist restraints removed fro patient at 0800 so patient could eat breakfast. Patient sitting up in bed feeding self. Patient was able to remain safe and compliant at this time so restraints remain off.
[2025-05-12] MEDS: CYANOCOBALAMIN 1,000 MCG TABLET 1000 MCG PO (08:57)
[2025-05-12] MEDS: LORATADINE 10 MG TABLET PO (08:57)
--- NOTE | 2025-05-12 10:46 | PCPTNOTE ---
Pt is ambulating in the hallway with nursing staff. Attempted to contact hospitalist, but he did not answer (not able to leave voicemail). No therapy needs from care coordination. Discharging pt due to remaining at baseline.
--- NOTE | 2025-05-12 13:14 | P.DS_ITS ---
DS: Admitting Diagnosis Discharge Date 05/12/2025 Admitting Diagnosis Cough, hypoxia DS: Discharge Diagnosis Discharge Diagnosis (1) Chronic obstructive pulmonary disease, unspecified: Qualifiers: COPD type: COPD with acute exacerbation Qualified Code(s): J44.1 - Chronic obstructive pulmonary disease with (acute) exacerbation Code(s): J44.9 - Chronic obstructive pulmonary disease, unspecified Status: Acute (2) Acute hypoxic respiratory failure: Code(s): J96.01 - Acute respiratory failure with hypoxia Status: Acute DS: Summary Hospital Course Hospital Course: Hospital Course: Mr. 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 He had a two-week history of upper respiratory symptoms and multiple recent ER visits for shortness of breath. On the day of admission, he was found to have oxygen saturations of 74?80% on room air at his PCP?s office and was transferred to the hospital after outpatient oxygen could not be arranged. On arrival, he was tachypneic and hypoxic, requiring 2L nasal cannula to maintain saturations >94%. He was agitated, confused, and oriented only to self. Physical exam revealed moderate tachypnea, coarse crackles throughout both lung broderick, and evidence of dehydration. He repeatedly removed his oxygen and attempted to ambulate, resulting in recurrent desaturations. Laboratory evaluation showed leukocytosis (WBC 16.8), macrocytic anemia, mild hyperkalemia, and evidence of chronic kidney disease. Chest X-ray and CT chest showed no acute infiltrates but did reveal severe emphysematous changes and mild to moderate fibrosing changes. Infectious workup (influenza, RSV, COVID-19) was negative. He was treated empirically for COPD exacerbation and possible pneumonia with IV ceftriaxone and doxycycline, IV methylprednisolone, and scheduled nebulized albuterol/ipratropium. Oxygen was titrated to maintain saturations >92%. His leukocytosis improved with hydration and treatment (WBC down to 10.1). 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 DVT prophylaxis was provided with SQ enoxaparin. PT/OT were consulted for mobility and safety. He was maintained on observation status throughout his stay. No acute cardiac or infectious complications developed. He was successfully weaned to room air. Discharged on 5 days of 60mg Prednisone and then continue home 40mg daily. Discharge Condition: * At baseline mentation (oriented to self only), comfortable at rest, hemodynamically stable, on room air Discharge Diagnoses: * Acute hypoxic respiratory failure (J96.01) * COPD exacerbation * Leukocytosis, resolved (D72.829) * Advanced Alzheimer?s dementia with behavioral disturbance (G30.9, F02.818) * Chronic kidney disease stage 3b (N18.32) * Macrocytic anemia * History of B12 deficiency Discharge Medications: * Continue home medications as appropriate * Prednisone 60mg x 5 days then continue baseline 40mg daily * Scheduled nebulized albuterol/ipratropium * Supplemental oxygen (2L nasal cannula, continuous) * Acetaminophen as needed for pain/fever * Trazodone at bedtime for agitation * Continue B12 supplementation * Seroquel 25mg x 5 days * Umeclinidiun-Vilanterol inhaler Discharge Instructions: * Return to nursing facility with continuous oxygen * Monitor for increased shortness of breath, fever, or change in mental status * Continue supportive care and safety precautions * Follow up with primary care and pulmonology as needed * POLST in place: DNR/comfort-focused care Follow-Up Appointments: * Primary care: in 3-5 days * Pulmonology: as scheduled Time Spent with Patient Time attestation: Total time spent providing and/or coordinating discharge services: DS: Data Data Completed and Pending Labs on day of discharge: Labs from last 24 hours 05/12/25 05/11/25 06:30 06:08 WBC 14.7 H RBC 3.37 L Hgb 11.2 L Hct 35.2 L MCV 104.5 H MCH 33.2 MCHC 31.8 L RDW 13.9 Plt Count 193 MPV 9.3 Immature Gran % (Auto) 1.2 H Neut % (Auto) 90.5 H Lymph % (Auto) 4.0 L Wharton % (Auto) 4.2 Eos % (Auto) 0.0 Baso % (Auto) 0.1 L Lymph # (Auto) 0.58 L [place]arton # (Auto) 0.6 Eos # (Auto) 0.0 Baso # (Auto) 0.0 Abs Immat Gran (auto) 0.18 H Absolute Neuts (auto) 13.3 H Absolute Nucleated RBC 0.000 Nucleated RBC % 0.0 Sodium 136 L 134 L Potassium 4.6 5.1 H Chloride 107 105 Carbon Dioxide 26 22 Anion Gap 3 L 7 BUN 38 H 34 H Creatinine 1.44 H 1.34 H Estim Creat Clear Calc 27 29 Estimated GFR 46 L 50 L Glucose 115 H 131 H Calcium 8.2 L 8.7 Magnesium 2.3 Total Bilirubin 0.5 AST 40 ALT 19 Alkaline Phosphatase 77 Total Protein 5.9 L Albumin 3.0 L Vitamin B12 947.0 H Folate 6.4 Discharge Plan Discharge Attending physician on discharge: Chiki Méndez Consulting providers: Chiki Méndez Discharging Clinician: Chiki Méndez Anticipated Discharge Date/Time: 05/12/25 13:08 Patient Disposition: Home Activity: as tolerated Diet: as tolerated and regular Patient Instructions: Antibiotic Form Patient Language: Slovak Stand Alone Forms: General Discharge Information Follow-up/Referrals: Kendell Chung MD [Primary Care Provider, [facility]] Referral Note: F/u with PCP in 3-5 days Discharge Medications: New prednisone 10 mg tablet 60 mg PO DAILY 5 Days Qty: 30 0RF umeclidinium-vilanterol 62.5-25 mcg/actuation blister with device 1 inh inhalation DAILY 30 Days Qty: 60 2RF quetiapine [Seroquel] 25 mg tablet 25 mg PO HS 5 Days Qty: 5 0RF Continued (DME) [employer] oxygen unit with nasal canula tubing See Rx Instructions .ROUTE .MEDSUPPLY Qty: 1 0RF Rx Instructions: Wear [employer] unit at all times. cyanocobalamin (vitamin B-12) [Vitamin B-12] 1,000 mcg Tablet 1,000 mcg PO QAM Qty: 30 0RF acetaminophen [Mapap (acetaminophen)] 325 mg Tablet 650 mg PO Q6H PRN (Reason: Mild Pain (1-3) Or Fever) Qty: 30 0RF prednisone 20 mg tablet 40 mg PO DAILY 5 Days Qty: 10 0RF trazodone 100 mg tablet 100 mg PO HS loratadine 10 mg tablet,disintegrating 10 mg PO DAILY ipratropium-albuterol 0.5 mg-3 mg(2.5 mg base)/3 mL solution for nebulization 3 ml inhalation QID Qty: 360 5RF Rx Instructions: Give by nebulizer Date of admission: 05/11/25 10:45 Primary Care Provider: Kendell Chung Admitting Provider: Cori Duffy Attending physician on admission: Cori Duffy Condition: Stable
--- NOTE | 2025-05-13 07:27 | HOMEO2EVAL ---
Evaluation was performed at [facility]
== END 2025-05-12 14:29 | disposition home or self-care (01) | DRG 190 ==
LOC: ANHED 19:30 → ANH3MEDSUR 20:09
PROVIDERS: Admitting Provider Internal Medicine; Emergency Provider Physician Assistant; PCP Family Medicine Adolescent Medicine; Visit Provider Internal Medicine
DX: J44.1 Chronic obstructive pulmonary disease with (acute) exacerbation (principal); J96.01 Acute respiratory failure with hypoxia; F02.818 Dementia in other diseases classified elsewhere, unspecified severity, with other behavioral disturbance; G30.9 Alzheimer's disease, unspecified; E53.8 Deficiency of other specified B group vitamins; N18.32 Chronic kidney disease, stage 3b; E86.0 Dehydration; D64.9 Anemia, unspecified; E87.5 Hyperkalemia; Z20.822 Contact with and (suspected) exposure to COVID-19; Z87.891 Personal history of nicotine dependence; Z79.52 Long term (current) use of systemic steroids; Z87.442 Personal history of urinary calculi
CPT/HCPCS: 36415; 71045; 71250; 80048; 80053; 82607; 82746; 83735; 85025; 85027; 87637; 93005; 94618; 94640; 96375; 99285; A9270; G0378; J0696; J2359; J2919; J3475